=== PATIENT | male | born 1950 | race Caucasian/White ===

== ENCOUNTER 2017-03-17 10:11 | Day surgery (SDC) | payer MEDICARE, OTHER ==
[~2017-03-17 10:11] MED LIST: Bupivacaine 0.5%/EPINEPHrine 1:200,000 50 ML MDV ONE
[2017-03-17] MEDS ORDERED: Dextrose 5%-Lactated Ringers 1,000 ML IV SCH (10:45)
[2017-03-17] MEDS ORDERED: cefOXitin 2 GM in Sodium Chloride 0.9% 50 ML IV ONE (11:15)
[2017-03-17] MEDS ORDERED: Dexamethasone 4 MG/ML SDV ONE (11:54)
[2017-03-17] MEDS ORDERED: fentaNYL 250 MCG/5 ML SDV ONE (11:54)
[2017-03-17] MEDS ORDERED: Neostigmine Methylsulfate 1 MG/ML 5 ML Syringe ONE (11:54)
[2017-03-17] MEDS ORDERED: Ondansetron 4 MG/2 ML SDV ONE (11:54)
[2017-03-17] MEDS ORDERED: Propofol 200 MG/20 ML SDV ONE (11:54)
[2017-03-17] MEDS ORDERED: Rocuronium 50 MG/5 ML Vial ONE (11:54)
[2017-03-17] MEDS ORDERED: Succinylcholine/Normal Saline 200 MG/10 ML Syringe ONE (11:54)
[2017-03-17] MEDS ORDERED: Hydrogen Peroxide 3% Top Soln 240 ML Bottle ONE (12:32)
[2017-03-17 15:04] VITALS: BP 139/75
--- NOTE | 2017-03-19 08:12 | OR ---
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 OPERATIVE PROCEDURES: 1. Anal fistulotomy (16766). 2. Anoscopy with biopsies of internal opening of the fistula (01798). ANESTHESIA: General. CONSULTING MARINE ENGINEER: AMINA Mann student. INDICATION FOR PROCEDURE: This is a 66-year-old with longstanding perianal Crohn's disease, presenting with a persistent fistula that has now closed up enough that is not adequately draining putting the patient at significant risk for infectious complication. The fistulotomy will be reopened. This is a suprasphincteric fistula going around a large amount of the sphincter apparatus, so we will not proceed with division of any significant muscle at this time. I'll simply open the tract up that it remains well drained. The patient recently started specific treatment for the Crohn's disease and hopefully that will be helpful with regard to healing this at some point. Potential risks including bleeding, infection, and injury to sphincter muscle despite attempts to avoid so were reviewed, and the patient wishes to proceed. DETAILS OF PROCEDURE: The patient was taken to the operating room. After general endotracheal anesthesia was induced, he was placed in a lithotomy position and a perianal prep performed. With the anoscope then passed into the anal canal and lower rectum peroxide was injected to the external opening of the fistula. This confirmed continued patency of this fistula with the peroxide now coming in to the area of the anal canal more or less at the level of the dentate line. Interestingly, the fistula was somewhat posterior to the midline and left side and then had a long curve followed with a curved lacrimal duct probe up to incision somewhat anterior to the anal opening and rectum. The patient was in a supine positioned with his legs up. The position of the fistula of the external site was roughly around 4 o'clock and roughly 4 cm away from the external anal opening and then curved through this suprasphincteric plane and came out at around 2 o'clock at the level of the dentate line. At this point, the lower aspect of fistula was opened and some of the skin and subcutaneous tissue scar around it were excised taking care to avoid division of the external area musculature. This appeared to lie in a satisfactory actual drainage at this point. To assess the amount of inflammation present at the distal internal opening, anoscope was then placed back and several biopsies obtained from that area and sent for histologic evaluation. At that point, the wound was packed open after being anesthetized with 0.5% Marcaine. The patient was taken to the recovery room in satisfactory condition. Cesar Fregoso MD /[id number]
== END 2017-03-17 15:15 | disposition home or self-care (01) ==
LOC: JP.SDS 10:11
PROVIDERS: ATTEND Surgery
PROC: 0DJD8ZZ Inspection of Lower Intestinal Tract, Via Natural or Artificial Opening Endoscopic (ICD-10-PCS; principal; 2017-03-17)
PROC: 0DBQ0ZZ Excision of Anus, Open Approach (ICD-10-PCS; 2017-03-17)
DX: K60.3 Anal fistula (principal); K50.913 Crohn's disease, unspecified, with fistula
CPT/HCPCS: 36415; 46270; 46606; 80048; 85027; 88304; 93005; 93010; A9270; J0694; J1100; J2405; J2704; J3010; J7042; J7050

== ENCOUNTER 2017-06-05 08:31 | Day surgery (SDC) | payer MEDICARE, OTHER ==
[~2017-06-05 08:31] MED LIST changes: +Dexamethasone 4 MG/ML SDV ONE; +Glycopyrrolate 0.2 MG/ML 5 ML MDV ONE; +Neostigmine Methylsulfate 1 MG/ML 5 ML Syringe ONE; +Ondansetron 4 MG/2 ML SDV ONE; +Propofol 200 MG/20 ML SDV ONE; +Rocuronium 50 MG/5 ML Vial ONE; +Succinylcholine 200 MG/10 ML MDV ONE
[2017-06-05] MEDS ORDERED: Albuterol/Ipratropium 3.0-0.5 MG/3 ML Neb Soln NEB ONE (08:51)
[2017-06-05] MEDS ORDERED: Dextrose 5%-Lactated Ringers 1,000 ML IV SCH (09:00)
[2017-06-05] MEDS ORDERED: Meropenem 500 MG in Sodium Chloride 0.9% 50 ML IV ONE (09:15)
[2017-06-05] MEDS ORDERED: Hydrogen Peroxide 3% Top Soln 240 ML Bottle ONE (11:13)
[2017-06-05] MEDS ORDERED: Naloxone 0.4 MG/ML SDV ONE (11:39)
[2017-06-05] MEDS ORDERED: Ketorolac 60 MG/2 ML SDV IM ONE (12:00)
[2017-06-05] MEDS ORDERED: traMADol 50 MG Tab PO ONE (13:15)
[2017-06-05 13:36] VITALS: BP 129/59
--- NOTE | 2017-06-08 10:19 | OR ---
DATE OF PROCEDURE: 06/05/2017 PREOPERATIVE DIAGNOSIS: Persistent anal fistula. POSTOPERATIVE DIAGNOSIS: Anal fistulotomy (62572). ANESTHESIA: General. INDICATIONS FOR PROCEDURE: This is a 67-year-old with Crohn disease with persistent fistula- in-ano. This is now closed up at the fistulotomy site at the point where he is having increased drainage and appears to be nonhealed and at this point not adequately drained. Given this, a fistulotomy will need to be performed once again. He recently was started on biologic treatment for the Crohn disease and we are awaiting to see if this helps with the healing process. Plan is to proceed with a fistulotomy. We will try to avoid division of any sphincter muscle at this time more or less providing adequate drainage for the fistula to avoid ongoing infectious complications. Potential risks including bleeding, infection, problems with fecal incontinence, the likelihood of fistula persisting were all gone over and the patient wishes to proceed. DETAILS OF PROCEDURE: The patient was taken to the operating room where after general endotracheal anesthesia was induced, he was placed in a lithotomy position and a perianal prep performed. Initially, digital rectal exam confirmed an area of slight induration along the anterior aspect of the dentate line. This area is located just to the left of the anterior midline. The patient's external fistula site was in the left lateral area, slightly posterior to the midportion of the anus, and this area was injected with peroxide, which confirmed the patency of the fistula with the peroxide coming out of the opening at the level of the dentate line. The fistula probe was in place. This once again confirmed this is predominantly an extrasphincteric fistula becoming transsphincteric at the point where it passes into the dentate line. The lower aspect of the fistula was then opened up once again. Care was taken to avoid division of any muscle and at that point the area was injected with some 0.5% Marcaine with epinephrine and packed in place and the procedure concluded. The patient was taken to the recovery room in satisfactory condition. There were no evident complications. At this point, the plan will be to continue to follow the situation and see if by some chance the biologic therapy is helpful with regard to healing of this. I doubt that this is likely going to be efficacious. At some point, we will probably set the patient up to see the colorectal people at the [facility] and get some direction in terms of more definitive management of this problem. Cesar Fregoso MD /[id number]
== END 2017-06-05 13:45 | disposition home or self-care (01) ==
LOC: JP.SDS 08:31
PROVIDERS: ATTEND Surgery
DX: K50.913 Crohn's disease, unspecified, with fistula (principal)
CPT/HCPCS: 36415; 46280; 80053; 83735; 84100; 85027; A9270; J0330; J1100; J1885; J2185; J2310; J2405; J2704; J2710; J3010; J7042; J7050; J7620; 88304

== ENCOUNTER 2017-10-19 09:31 | Emergency (ER) | payer MEDICARE, OTHER ==
[2017-10-19] MEDS ORDERED: Ondansetron 4 MG/2 ML SDV IVPUSH ONE (10:48)
[2017-10-19] MEDS ORDERED: Meclizine 25 MG Tab PO ONE ×2 (10:49→12:26)
--- NOTE | 2017-10-19 10:52 | EDM.PDOC ---
ED HPI GENERAL MEDICAL PROBLEM - General Chief Complaint: General Stated Complaint: DIZZINESS,VOMITING Time Seen by Provider: 10/19/17 10:50 Source of Information: Reports: Patient History Limitations: Reports: No Limitations - History of Present Illness INITIAL COMMENTS - FREE TEXT/NARRATIVE: pt arrived with marked vertigo. He is vomiting. This started as he got up this am. He does not have a severe headache. He has a history of drinking but will soon have a 2 year anniversary of being free of etoh. Onset: Today, Sudden, Other (pt woke up with it. ) Duration: Hour(s):, Getting Worse, Other ( Pt was very nauseated. ) Location: Reports: Head Associated Symptoms: Reports: Nausea/Vomiting, Other ( vertigo. ) - Related Data Allergies Allergy/AdvReac Type Severity Reaction Status Date / Time No Known Allergies Allergy Verified 10/19/17 10:01 Home Meds: Home Meds Loperamide [Imodium] 2 mg PO Q4H PRN #30 cap 12/12/14 [Rx] Sertraline [Zoloft] 50 mg PO QAM 06/04/15 [History] metFORMIN [Glucophage] 1,000 mg PO BID 03/03/16 [History] Metoprolol Tartrate 25 mg PO BID 05/07/16 [History] Hydrochlorothiazide 25 mg PO DAILY 09/09/16 [History] atorvaSTATin [Lipitor] 10 mg PO DAILY 09/11/16 [History] azaTHIOprine [Imuran] 250 mg PO DAILY 03/13/17 [History] traMADol [Ultram] 1 - 2 tab PO Q6H PRN 03/13/17 [History] Albuterol [IJD: Albuterol HFA] 1 - 2 puff INH Q4HR PRN 06/03/17 [History] Colestipol [Colestipol HCl] 1 gm PO DAILY 06/03/17 [History] Entyvio IV ASDIRECTED 06/03/17 [History] Lisinopril [Prinivil] 10 mg PO DAILY 06/03/17 [History] Tamsulosin HCl [Flomax] 0.4 mg PO DAILY 06/03/17 [History] Past Medical History HEENT History: Reports: Hard of Hearing, Impaired Vision Other HEENT History: wears glasses Cardiovascular History: Reports: CAD, High Cholesterol, Hypertension, Stents Respiratory History: Reports: Sleep Apnea Other Respiratory History: c-pap Gastrointestinal History: Reports: Chronic Diarrhea, Gastritis, GERD, Hemorrhoids, Irritable Bowel Syndrome, Other (See Below) Other Gastrointestinal History: Crohns. fistula Genitourinary History: Reports: BPH, Prostate Disorder, Renal Calculus, UTI, Recurrent Musculoskeletal History: Reports: Arthritis, Fracture, Gout, Other (See Below) Other Musculoskeletal History: lumbar fractures Neurological History: Reports: Concussion Psychiatric History: Reports: Addiction, Anxiety, Depression Endocrine/Metabolic History: Reports: Diabetes, Type II Hematologic History: Reports: Anemia, B12 Deficiency, Folic Acid, Iron Deficiency Oncologic (Cancer) History: Reports: Other (See Below) Other Oncologic History: basal cell Dermatologic History: Reports: Psoriasis - Infectious Disease History Infectious Disease History: Reports: C-Difficile, Measles, Mumps - Past Surgical History Head Surgeries/Procedures: Reports: None HEENT Surgical History: Reports: None Cardiovascular Surgical History: Reports: Carotid Stents Respiratory Surgical History: Reports: None GI Surgical History: Reports: Appendectomy, Colon, Colonoscopy, EGD, Small Bowel , Other (See Below) Other GI Surgeries/Procedures: multiple colon surguries Male Surgical History: Reports: Kidney Stone Extraction Endocrine Surgical History: Reports: None Neurological Surgical History: Reports: Other (See Below) Musculoskeletal Surgical History: Reports: None Oncologic Surgical History: Reports: None Dermatological Surgical History: Reports: Skin Biopsy Social & Family History - Family History Family Medical History: Unobtainable HEENT: Reports: Cataract Cardiac: Reports: Bypass, [place], Stent Respiratory: Reports: COPD Endocrine/Metabolic: Reports: Diabetes, type II, Hypothyroidism Oncologic: Reports: Lung - Tobacco Use Smoking Status *Q: Never Smoker Second Hand Smoke Exposure: No - Caffeine Use Caffeine Use: Reports: Soda - Alcohol Use Days Per Week of Alcohol Use: 5 Number of Drinks Per Day: 10 Total Drinks Per Week: 50 - Recreational Drug Use Recreational Drug Use: No ED ROS GENERAL - Review of Systems Review Of Systems: See Below Constitutional: Reports: No Symptoms HEENT: Reports: No Symptoms Respiratory: Reports: No Symptoms Cardiovascular: Reports: No Symptoms, Other (pt has no chest pain. ) Endocrine: Reports: Other ( glucose is greater than 200. ) GI/Abdominal: Reports: Nausea, Vomiting, Other ( No pain. ) : Reports: No Symptoms Musculoskeletal: Reports: No Symptoms Skin: Reports: No Symptoms Neurological: Reports: Dizziness, Other (pt has vertigo. ) Psychiatric: Reports: Anxiety ED EXAM, GENERAL - Physical Exam Exam: See Below Free Text/Narrative:: pt arrived with vertigo. This started this am and became severe. He has vomited multiple times. Exam Limited By: No Limitations General Appearance: Alert, Mild Distress, Other (pupils are equal and reactive. He does not have nystagmus. ) Ears: Normal TMs Nose: Normal Inspection Throat/Mouth: Normal Inspection Head: Atraumatic Neck: Other (no carotid bruits) Respiratory/Chest: No Respiratory Distress Cardiovascular: Regular Rate, Rhythm GI/Abdominal: Soft, Non-Tender (Male) Exam: Deferred Rectal (Males) Exam: Deferred Back Exam: Normal Inspection Extremities: Normal Inspection Neurological: Alert, Oriented, Normal Cognition Psychiatric: Normal Affect Course - Vital Signs Last Recorded V/S: Last Vital Signs Temp 36.6 C 10/19/17 13:21 Pulse 73 10/19/17 13:21 Resp 16 10/19/17 13:21 BP 173/81 H 10/19/17 13:21 Pulse Ox 97 10/19/17 13:21 - Orders/Labs/Meds Orders: Active Orders 24 hr Category Date Time Status Sodium Chloride 0.9% [Normal Saline] 1,000 ml Med 10/19/17 11:00 Active IV ASDIRECTED Medication Orders Sodium Chloride (Normal Saline) 1,000 mls @ 999 mls/hr IV ASDIRECTED NAA Last Admin: 10/19/17 11:37 Dose: 999 mls/hr Labs: Laboratory Tests 10/19/17 10/19/17 10/19/17 Range/Units 10:58 10:58 11:19 WBC 4.8 (4.5-11.0) K/uL RBC 4.63 (4.30-5.90) M/uL Hgb 14.6 (12.0-15.0) g/dL Hct 41.0 (40.0-54.0) % MCV 89 (80-98) fL MCH 32 H (27-31) pg MCHC 36 (32-36) % Plt Count 167 (150-400) K/uL Neut % (Auto) 74 H (36-66) % Lymph % (Auto) 17 L (24-44) % [place] % (Auto) 7 H (2-6) % Eos % (Auto) 1 L (2-4) % Baso % (Auto) 0 (0-1) % Sodium 140 (140-148) mmol/L Potassium 4.1 (3.6-5.2) mmol/L Chloride 101 (100-108) mmol/L Carbon Dioxide 28 (21-32) mmol/L Anion Gap 11.2 (5.0-14.0) mmol/L BUN 15 (7-18) mg/dL Creatinine 1.0 (0.8-1.3) mg/dL Est Cr Clr Drug Dosing 83.33 mL/min Estimated GFR (MDRD) > 60 (>60) Glucose 226 H (74-106) mg/dL Calcium 9.0 (8.5-10.1) mg/dL Total Bilirubin 1.5 H (0.2-1.0) mg/dL AST 35 (15-37) U/L ALT 40 (12-78) U/L Alkaline Phosphatase 180 H (46-116) U/L Total Protein 6.2 L (6.4-8.2) g/dL Albumin 3.5 (3.4-5.0) g/dL Globulin 2.7 (2.3-3.5) g/dL Albumin/Globulin Ratio 1.3 (1.2-2.2) Urine Color Yellow Urine Appearance Slightly cloudy Urine pH 7.0 (4.5-8.0) Ur Specific Barre 1.015 (1.008-1.030) Urine Protein 500 H (NEGATIVE) mg/dL Urine Glucose (UA) 100 H (NEGATIVE) mg/dL Urine Ketones Negative (NEGATIVE) mg/dL Urine Occult Blood Moderate (NEGATIVE) Urine Nitrite Negative (NEGAITVE) Urine Bilirubin Negative (NEGATIVE) Urine Urobilinogen 1 (NORMAL) mg/dL Ur Leukocyte Esterase Small (NEGATIVE) Urine RBC 0-5 (0-5) Urine WBC 0-5 (0-5) Ur Epithelial Cells Not seen Amorphous Sediment Rare Urine Bacteria Rare Urine Mucus Rare Meds: Medications Generic Name Dose Route Start Last Admin Trade Name Freq PRN Reason Stop Dose Admin Sodium Chloride 1,000 mls @ 999 mls/hr 10/19/17 11:00 10/19/17 11:37 Normal Saline IV 999 mls/hr ASDIRECTED NAA Administration Discontinued Medications Generic Name Dose Route Start Last Admin Trade Name Marquise PRN Reason Stop Dose Admin Meclizine HCl 25 mg 10/19/17 10:49 10/19/17 11:37 Antivert PO 10/19/17 10:50 25 mg ONETIME ONE Administration Meclizine HCl 12.5 mg 10/19/17 12:26 Antivert PO 10/19/17 12:27 ONETIME ONE Ondansetron HCl 4 mg 10/19/17 10:48 10/19/17 11:38 Zofran IVPUSH 10/19/17 10:49 4 mg ONETIME ONE Administration - Re-Assessments/Exams Free Text/Narrative Re-Assessment/Exam: 10/19/17 13:31 Since this was his first episode he had a cat scan of the head that was normal. He was given a liter of fluid. He was given antivert and zoforan and he is feeling better. He is drinking fluids and doing well with that. Departure - Departure Time of Disposition: 13:33 Disposition: Home, Self-Care 01 Condition: Fair Clinical Impression: Inner ear dysfunction, Vomiting - Discharge Information Referrals: Jorge Ridley PA-C [Primary Care Provider] - Forms: ED Department Discharge Care Plan Goals: low activity rest today, antivert 25 q8h as needed for dizziness0- take regularly for the next 2 days, zoforan 4 mg sub ling q8h as needed for nausea and vomiting, Rtc if increased problems. - My Orders Last 24 Hours: My Active Orders 10/19/17 11:00 Sodium Chloride 0.9% [Normal Saline] 1,000 ml IV ASDIRECTED - Assessment/Plan Last 24 Hours: My Active Orders 10/19/17 11:00 Sodium Chloride 0.9% [Normal Saline] 1,000 ml IV ASDIRECTED
[2017-10-19] MEDS ORDERED: Sodium Chloride 0.9% 1,000 ML IV SCH (11:00)
--- NOTE | 2017-10-19 13:24 | CT ---
Head wo Cont INDICATION: severe vertigo-- first time Total DLP 859. COMPARISON: CT 01/28/2015. FINDINGS: No acute intracranial hemorrhage, mass, or edema. Minimal generalized cerebral and cerebell ar volume loss. Chronic lacunar infarct versus prominent perivascular space right basal ganglia. Saira eda unremarkable. IMPRESSION: No acute intracranial abnormality.
[2017-10-19 13:28] VITALS: BP 173/81
== END 2017-10-19 13:58 | disposition home or self-care (01) ==
LOC: JP.ED 09:31
DX: H83.2X9 Labyrinthine dysfunction, unspecified ear (principal); E11.9 Type 2 diabetes mellitus without complications; I10 Essential (primary) hypertension; E78.00 Pure hypercholesterolemia, unspecified; K21.9 Gastro-esophageal reflux disease without esophagitis; Z79.899 Other long term (current) drug therapy; Z79.84 Long term (current) use of oral hypoglycemic drugs
CPT/HCPCS: 36415; 70450; 80053; 81001; 85025; 96361; 96374; 99284; A9270; J2405; J7040; 99283; J7030

== ENCOUNTER 2018-10-11 05:25 | Day surgery (SDC) | payer MEDICARE, OTHER ==
[2018-10-11] MEDS ORDERED: Dextrose 5%-Lactated Ringers 1,000 ML IV SCH (06:00)
[2018-10-11] MEDS ORDERED: Propofol 200 MG/20 ML SDV ONE ×2 (07:09→08:12)
[2018-10-11] MEDS ORDERED: fentaNYL 100 MCG/2 ML SDV ONE (07:09)
[2018-10-11] MEDS ORDERED: Hydrogen Peroxide 3% Top Soln 240 ML Bottle ONE (07:20)
[2018-10-11 09:32] VITALS: BP 153/82
--- NOTE | 2018-10-19 12:21 | OR ---
DATE OF PROCEDURE: 10/11/2018 PREOPERATIVE DIAGNOSIS: History of Crohn disease with [id number]-la-dxj. POSTOPERATIVE DIAGNOSES: 1. Persistent khisygi-sd-hbb. 2. Cecum showing focal inflammation and probable inflammatory polyp. 3. No gross inflammation involving remainder of colon and rectum. OPERATIVE PROCEDURES: 1. Anoscopy for evaluation of zmfysxp-de-sib (19509). 2. Flexible colonoscopy with;. a. Polypectomy of polypoid lesion at the cecum by snare technique (82181). b. Random biopsies of cecum and ascending colon. c. Separate random biopsies of distal sigmoid colon and rectum (63561). ANESTHESIA: IV sedation. INDICATION FOR PROCEDURE: This is a 68-year-old, being treated for Crohn disease. He has known [id number], which clinically has become quite less problematic on this current treatment, which includes Entyvio and imuran, and also more recently a better control of his diabetic status. The plan is to proceed with an initial anoscopy with injection of the site of possible persistent fistula with peroxide to see whether or not, in fact, it is still patent, and then proceed with a general colonoscopy to evaluate to what extent there is any ongoing mucosal inflammation in the colon and rectum. Potential risks of the procedure including bleeding and perforation were discussed, and the patient wishes to proceed. DETAILS OF PROCEDURE: The patient was taken to the operating room and placed in a left lateral decubitus position. IV sedation was administered, after which the initial digital rectal exam was performed and was unremarkable. There was no obvious inflammation in the anal canal or lower rectum. As one passed the scope into the rectum, we could not directly visualize a fistula opening. At that point, the scope was eventually passed to the level of the cecum. In the cecum, there was a focal area of some edema and redness of the mucosa as well as a polypoid lesion measuring about 8 mm. The overall picture was suggestive of this perhaps being an inflammatory polyp. The polyp was encircled at its base and divided off with cautery snare and it did fragment somewhat and the fragments were retrieved and sent for histologic evaluation. Additional more random biopsies of the cecum and ascending colon were then obtained as well. Following this, the scope was withdrawn with there not being any additional areas of gross mucosal inflammation identified through the remainder of the exam. Some random biopsies of the distal sigmoid colon and rectum were also obtained for histologic evaluation and sent as a separate specimen. At this point, with the colonoscope having been removed, anoscope was placed and peroxide was then injected through the external location of the [id number]. This did confirm some peroxide getting into the area along the dentate line consistent with some persistence of the fistula, although the amount of drainage the patient has been having and gross inflammation along the fistula has markedly decreased from the previous level. The procedure was then concluded. The patient was taken to the recovery room in a satisfactory condition. We will continue with the present medical management. The patient will be following up with Dr. Pimentel of the [facility] in [place]. We will see him back in 5 to 6 weeks for a recheck. Cesar Fregoso MD Job #: [id number]
== END 2018-10-11 10:30 | disposition home or self-care (01) ==
LOC: JP.SDS 05:25
PROVIDERS: ATTEND Surgery
DX: K60.3 Anal fistula (principal); K51.40 Inflammatory polyps of colon without complications; I10 Essential (primary) hypertension; E11.9 Type 2 diabetes mellitus without complications; I25.10 Atherosclerotic heart disease of native coronary artery without angina pectoris
CPT/HCPCS: 45380; 45385; 88305; 88342; A9270; J2704; J3010; J7042

== ENCOUNTER 2020-02-29 10:05 | Day surgery (SDC) | payer MEDICARE, OTHER ==
[2020-02-29] MEDS ORDERED: Lactated Ringers 1,000 ML IV SCH (10:45)
[2020-02-29] MEDS ORDERED: Nozin Nasal Sanitizer NASBOTH ONE (11:00)
[2020-02-29] MEDS ORDERED: Morphine 2 MG/ML SYRINGE IVPUSH ONE (11:45)
[2020-02-29] MEDS ORDERED: Glycopyrrolate 0.2 MG/ML 5 ML MDV ONE (12:21)
[2020-02-29] MEDS ORDERED: fentaNYL 250 MCG/5 ML SDV ONE (12:21)
[2020-02-29] MEDS ORDERED: Succinylcholine 200 MG/10 ML MDV ONE (12:21)
[2020-02-29] MEDS ORDERED: Dexamethasone 4 MG/ML SDV ONE (12:21)
[2020-02-29] MEDS ORDERED: Ondansetron 4 MG/2 ML SDV ONE (12:21)
[2020-02-29] MEDS ORDERED: Propofol 200 MG/20 ML SDV ONE (12:21)
[2020-02-29] MEDS ORDERED: Neostigmine Methylsulfate 1 MG/ML 5 ML Syringe ONE (12:21)
[2020-02-29] MEDS ORDERED: Rocuronium 50 MG/5 ML Vial ONE (12:21)
[2020-02-29] MEDS ORDERED: Bupivacaine 0.5% 50 ML MDV ONE (13:08)
[2020-02-29] MEDS ORDERED: ceFAZolin 1 GM in Premix Bag 1 BAG IV ONE (13:30)
[2020-02-29] MEDS ORDERED: Ondansetron 4 MG/2 ML SDV IVPUSH ONE (15:41)
[2020-02-29 16:56] VITALS: BP 164/89; PULSE 73
[2020-02-29] MEDS ORDERED: Acetaminophen/HYDROcodone 325-5 MG Tab PO ONE (17:10)
--- NOTE | 2020-03-07 22:28 | OR ---
DATE OF PROCEDURE: 02/29/2020 SURGEON: Og Alonzo MD PREOPERATIVE DIAGNOSES: 1. Chondromalacia medial femoral condyle, left knee. 2. Medial meniscus tear, left knee. POSTOPERATIVE DIAGNOSES: 1. Large chondral defect, chondromalacia grade 4, medial femoral condyle. 2. Small degenerative midbody medial meniscus tear. PROCEDURES: 1. Arthroscopy, left knee with chondroplasty, medial femoral condyle and microfracture. 2. Debridement of medial meniscus. ANESTHESIA: General. INDICATIONS: Yevgeniy is a 69-year-old gentleman with a fairly rapid onset of pain in the medial aspect of his left knee. He has failed conservative treatment, having significant difficulty with weightbearing, persistent pain and catching. Examination and MRI are consistent with irregularity of the medial meniscus, degenerative tear and chondromalacia of the medial femoral condyle. The remainder of the knee is fairly well preserved. X-ray shows no significant spuh-bs-bxjp collapse. He is therefore taken to the operating room for debridement of the meniscus and chondroplasty, medial femoral condyle. Risks, benefits and potential complications of procedure were discussed. DESCRIPTION OF PROCEDURE: After adequate anesthesia was obtained, the patient placed supine with a tourniquet about the left upper thigh. Left leg was prepped and draped in a sterile fashion. Leg was exsanguinated and tourniquet inflated to 300 mg of pressure. Standard inferior, medial and lateral portals were established. The scope was introduced and the patellofemoral joint was inspected. This revealed intact articular cartilage on the patella and trochlear groove with intact cartilage as well. Moving into the medial compartment, large cartilage defect was present which unfortunately encompassed nearly the entire weightbearing surface. This did not have the typical degenerative arthritic appearance with eburnated bone and relatively smooth articular cartilage loss and transition to the bone, but had a large defect with fairly well-defined articular cartilage margins. The margins did however have some loose articular flaps. A shaver was introduced and the margins were debrided removing all the loose articular pieces. This left nearly the entire weightbearing surface devoid of articular cartilage other than just a small bridge between a more anterior and a posterior segment. Once all the loose fragments were removed and the defect defined, the bed of the defect was debrided with a shaver and microfracture awls were used to perform a microfracture throughout the base of the lesion. A small frayed free edge degenerative tear was noted at the junction of the midbody and posterior horn of the meniscus. This was debrided as well removing a minimal amount of meniscus. All loose fragments were removed. Intercondylar notch revealed intact ACL and PCL. Lateral compartment revealed intact meniscus and articular cartilage. A little more anterior on the medial femoral condyle moving up the portion of the medial facet of the trochlea, there was an area of more typical degenerative articular cartilage loss with smooth edges and central defect. No chondroplasty or debridement was done of this. The knee was then drained. Port sites were closed in a standard fashion, infiltrated with Marcaine and a sterile dressing was applied. The patient tolerated the procedure very well. There were no complications. He was taken from the operating room in stable condition. Og Alonzo MD /[id number]
== END 2020-02-29 18:37 | disposition home or self-care (01) ==
LOC: JP.SDS 10:05
PROVIDERS: ATTEND Specialist
DX: M94.262 Chondromalacia, left knee (principal); M23.222 Derangement of posterior horn of medial meniscus due to old tear or injury, left knee; I10 Essential (primary) hypertension; E11.9 Type 2 diabetes mellitus without complications; G47.33 Obstructive sleep apnea (adult) (pediatric); E66.9 Obesity, unspecified; E78.00 Pure hypercholesterolemia, unspecified; I25.10 Atherosclerotic heart disease of native coronary artery without angina pectoris; Z68.34 Body mass index [BMI] 34.0-34.9, adult; Z88.0 Allergy status to penicillin; Z79.4 Long term (current) use of insulin
CPT/HCPCS: 29877; 82962; A9270; J0330; J0690; J1100; J2270; J2405; J2704; J2710; J3010; J3490; J7120; 29879; 29881

== ENCOUNTER 2020-04-11 05:49 | Day surgery (SDC) | payer MEDICARE, OTHER ==
[2020-04-11] MEDS ORDERED: Clindamycin Phosphate 900 MG in Sodium Chloride 0.9% 100 ML IV ONE (06:30)
[2020-04-11] MEDS: Nozin Nasal Sanitizer NASBOTH SCH ×3 (06:54→21:41)
[2020-04-11] MEDS ORDERED: Bupivacaine 0.5% 30 ML SDV ONE (06:58)
[2020-04-11] MEDS ORDERED: Propofol 200 MG/20 ML SDV ONE ×4 (07:24→08:49)
[2020-04-11] MEDS ORDERED: fentaNYL 100 MCG/2 ML SDV ONE (07:24)
[2020-04-11] MEDS ORDERED: Midazolam 1 MG/ML 2 ML SDV ONE (07:25)
[2020-04-11] MEDS: Lactated Ringers 1,000 ML IV SCH ×2 (07:30→09:55)
[2020-04-11] MEDS: Povidone-Iodine 10% Soln 118.25 ML Bottle ONE ×2 (08:30→09:00)
[2020-04-11] MEDS ORDERED: Lactated Ringers 1,000 ML ONE (09:02)
[2020-04-11] MEDS ORDERED: Ondansetron 4 MG/2 ML SDV IVPUSH PRN (09:19)
[2020-04-11] MEDS ORDERED: Acetaminophen/HYDROcodone 325-5 MG Tab PO PRN (09:19)
[2020-04-11] MEDS ORDERED: Morphine 2 MG/ML SYRINGE IVPUSH PRN (09:19)
[2020-04-11] MEDS ORDERED: Magnesium Hydroxide 400 MG/5 ML Susp 30 ML Cup PO PRN (09:19)
[2020-04-11] MEDS ORDERED: Loperamide 2 MG Cap PO PRN (09:27)
[2020-04-11] MEDS ORDERED: Atropine/Diphenoxylate 0.025-2.5 MG Tab PO PRN ×2 (09:27→17:39)
[2020-04-11] MEDS ORDERED: VEDOLIZUMAB 300 MG IV SCH (09:30)
[2020-04-11] MEDS ORDERED: ceFAZolin 1 GM in Sodium Chloride 0.9% 50 ML IV SCH ×2 (09:30→10:23)
[2020-04-11] MEDS ORDERED: Lactated Ringers 1,000 ML IV SCH (09:30)
[2020-04-11] MEDS ORDERED: Ondansetron 4 MG/2 ML SDV IVPUSH ONE (09:32)
[2020-04-11] MEDS ORDERED: Loratadine 10 MG Tab PO PRN (09:36)
--- NOTE | 2020-04-11 10:05 | CR ---
Knee 1V or 2V Lt CLINICAL HISTORY: Postop arthroplasty FINDINGS: Patient is status post recent the medial knee hemiarthroplasty. Components appear well seated. Impression: Status post medial hemiarthroplasty
[2020-04-11] MEDS: Acetaminophen/oxyCODONE 325-5 MG Tab PO PRN ×2 (11:19→11:33)
[2020-04-11] MEDS ORDERED: Insulin Lispro 100 Unit/ML 3 ML KwikPen SUBCUT SCH (12:00)
[2020-04-11] MEDS: Potassium Chloride 20 MEQ Tab.ER PO SCH (12:30)
[2020-04-11] MEDS: Potassium Chloride 10 MEQ Cap.ER PO SCH (12:30)
--- NOTE | 2020-04-11 14:35 | PCM.CONS ---
H&P History of Present Illness - General Date of Service: 04/11/20 Admit Problem/Dx: Admission Diagnosis/Problem Admission Diagnosis/Problem Osteoarthritis Source of Information: Patient, Provider History Limitations: Reports: No Limitations - History of Present Illness Initial Comments - Free Text/Narative: Yevgeniy was admitted today after having a left knee arthroplasty. I was asked to see him by Dr Og Alonzo regarding medical management of diabetes, hypertension. He is currently experiencing a moderate to moderately severe pain in the left knee after initially having good pain control. Pain is sharp and comes and goes in waves. He has had a variety of pain medications without much improvement. Pain has been getting worse over the past couple of hours. He reports that his diabetes is usually pretty well controlled. He is currently taking glipizide twice daily, long-acting Lantus in the evening and he uses 1 unit of insulin per carb with his meals as well as a low-dose sliding scale at home. Blood pressure has been well controlled at recent outpatient visits. Crohn's disease has been fairly well controlled and he does receive monthly infusions. 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 This is chronic and stable. Left Knee Pain Score (Numeric/FACES): 2 - Related Data Allergies/Adverse Reactions: Allergies Allergy/AdvReac Type Severity Reaction Status Date / Time amoxicillin Allergy Nausea Verified 02/29/20 10:24 Penicillins Allergy Indigestion Verified 10/11/18 06:09 Home Medications: Home Meds Loperamide [Imodium] 2 mg PO Q4H PRN #30 cap 12/12/14 [Rx] Sertraline [Zoloft] 50 mg PO QAM 06/04/15 [History] Metoprolol Tartrate 75 mg PO BID 05/07/16 [History] Hydrochlorothiazide 25 mg PO DAILY 09/09/16 [History] atorvaSTATin [Lipitor] 40 mg PO DAILY 09/11/16 [History] Insulin Glarg,Human.Rec.Analog [Lantus Solostar] 32 units SQ BEDTIME 10/11/18 [History] Alfuzosin [Uroxatral] 10 mg PO DAILY 11/02/18 [History] Fish Oil/[place]-3 Fatty Acids [Fish Oil 1,000 MG] 1 each PO DAILY 11/02/18 [History] Loratadine [Claritin] 10 mg PO DAILY PRN 11/02/18 [History] Multivitamin [Multiple Vitamins] 1 each PO DAILY 11/02/18 [History] Pantoprazole Sodium [Protonix] 40 mg PO DAILY 11/02/18 [History] Potassium Chloride 20 meq PO DAILY 11/02/18 [History] Potassium Citrate 10 meq PO DAILY 11/02/18 [History] amLODIPine Besylate [Norvasc] 10 mg PO DAILY 11/02/18 [History] glipiZIDE [Glucotrol] 10 mg PO BID 11/02/18 [History] Insulin Aspart [NovoLOG] 25 units SQ TID 11/09/18 [History] Atropine/Diphenoxylate [Diphenoxylate-Atropine] 1 tab PO BID PRN 02/29/20 [History] Vedolizumab [Entyvio] 300 mg IV Q60D 02/29/20 [History] ondansetron HCL [Zofran] 4 mg PO Q6HR PRN #15 tablet 03/06/20 [Rx] Hydrocodone/Acetaminophen [[place] 5-325 Tablet] 1 - 2 each PO Q6HR PRN #50 tablet 03/08/20 [Rx] oxyCODONE HCl/Acetaminophen [Percocet 5-325 mg Tablet] 1 - 2 each PO Q6HR PRN #50 tablet 04/05/20 [Rx] Past Medical History HEENT History: Reports: Cataract, Hard of Hearing, Impaired Vision Other HEENT History: wears glasses Cardiovascular History: Reports: CAD, High Cholesterol, Hypertension, Stents Respiratory History: Reports: Sleep Apnea Other Respiratory History: c-pap Gastrointestinal History: Reports: Other (See Below) Other Gastrointestinal History: Crohns. lisseth anal fistula Genitourinary History: Reports: BPH, Prostate Disorder, Renal Calculus, UTI, Recurrent Musculoskeletal History: Reports: Arthritis, Fracture, Gout, Other (See Below) Other Musculoskeletal History: lumbar fractures. right achilles pain. R heel pain. left knee pain Neurological History: Reports: Concussion Psychiatric History: Reports: Addiction, Anxiety Endocrine/Metabolic History: Reports: Diabetes, Type II, Obesity/BMI 30+ Hematologic History: Reports: Anemia, B12 Deficiency, Folic Acid, Iron Deficiency Immunologic History: Reports: None Oncologic (Cancer) History: Reports: Basal Cell Carcinoma, Other (See Below) Other Oncologic History: basal cell Dermatologic History: Reports: Psoriasis - Infectious Disease History Infectious Disease History: Reports: Chicken Pox, Measles, Mumps - Past Surgical History Head Surgeries/Procedures: Reports: None HEENT Surgical History: Reports: Tonsillectomy Cardiovascular Surgical History: Reports: Carotid Stents Respiratory Surgical History: Reports: None Male Surgical History: Reports: Kidney Stone Extraction Endocrine Surgical History: Reports: None Neurological Surgical History: Reports: None Musculoskeletal Surgical History: Reports: None Other Musculoskeletal Surgeries/Procedures:: left knee scope 03/05/20 Dermatological Surgical History: Reports: Skin Biopsy Social & Family History - Family History Family Medical History: Noncontributory HEENT: Reports: Cataract Cardiac: Reports: Bypass, MA, Stent Respiratory: Reports: COPD Endocrine/Metabolic: Reports: Diabetes, type II, Hypothyroidism Oncologic: Reports: Lung - Tobacco Use Smoking Status *Q: Never Smoker - Caffeine Use Caffeine Use: Reports: Soda - Alcohol Use Days Per Week of Alcohol Use: 1 Number of Drinks Per Day: 1 Total Drinks Per Week: 1 Date of Last Drink: 04/09/20 - Recreational Drug Use Recreational Drug Use: No H&P Review of Systems - Review of Systems: Review Of Systems: See Below Free Text/Narrative: A complete 12 point review of systems was obtained. Pertinent positives and negatives are noted in the history of present illness. All other systems were reviewed and were negative except as noted. Exam - Exam Exam: See Below - Vital Signs Vital Signs: Last Vital Signs Temp 36.4 C 04/11/20 13:34 Pulse 60 04/11/20 13:34 Resp 16 04/11/20 13:34 BP 144/82 H 04/11/20 13:34 Pulse Ox 99 04/11/20 13:34 Weight: 112.576 kg - Exam Quality Assessment: No: Supplemental Oxygen General: Alert, Oriented, Cooperative, Mild Distress HEENT: Mucosa Moist & [place]. No: Scleral Icterus Neck: Trachea Midline. No: Lymphadenopathy Lungs: Normal Respiratory Effort. No: Wheezing Cardiovascular: Regular Rate, Regular Rhythm GI/Abdominal Exam: Soft, No Distention Extremities: No Pedal Edema, Other (Left knee wrapped in Viktor wrap) Skin: Warm, Dry Neuro Extensive - Mental Status: Alert, Oriented x3, Nl Response to Commands Neuro Extensive - Motor, Sensory, Reflexes: No: Dysarthria, Abnormal Motor Psychiatric: Alert, Normal Affect - Patient Data Lab Results Last 24 hrs: Laboratory Results - last 24 hr 04/11/20 04/11/20 04/11/20 Range/Units 06:27 06:27 11:30 WBC 9.2 (4.5-11.0) K/uL RBC 4.69 (4.30-5.90) M/uL Hgb 14.4 (12.0-15.0) g/dL Hct 39.9 L (40.0-54.0) % MCV 85 (80-98) fL MCH 31 (27-31) pg MCHC 36 (32-36) % Plt Count 195 (150-400) K/uL Sodium 141 (140-148) mmol/L Potassium 3.0 L (3.6-5.2) mmol/L Chloride 102 (100-108) mmol/L Carbon Dioxide 28 (21-32) mmol/L Anion Gap 14.0 (5.0-14.0) mmol/L BUN 14 (7-18) mg/dL Creatinine 1.4 H (0.8-1.3) mg/dL Est Cr Clr Drug Dosing 57.00 mL/min Estimated GFR (MDRD) 50 L (>60) Glucose 152 H (74-106) mg/dL POC Glucose 265 H (74-106) MG/DL Calcium 8.5 (8.5-10.1) mg/dL Total Bilirubin 1.2 H (0.2-1.0) mg/dL AST 16 (15-37) U/L ALT 22 (12-78) U/L Alkaline Phosphatase 95 (46-116) U/L Total Protein 7.0 (6.4-8.2) g/dL Albumin 3.9 (3.4-5.0) g/dL Globulin 3.1 (2.3-3.5) g/dL Albumin/Globulin Ratio 1.3 (1.2-2.2) Result Diagrams: 04/11/20 06:27 04/11/20 06:27 Sepsis Event Note - Focused Exam Vital Signs: Vital Signs Temp Pulse Resp BP BP Pulse Ox 04/11/20 13:34 36.4 C 60 16 144/82 H 99 04/11/20 13:00 66 16 148/58 H 99 04/11/20 12:38 36.2 C 66 16 148/58 H 99 04/11/20 12:24 36.2 C 60 16 156/69 H 99 04/11/20 11:52 36.2 C 62 16 134/61 99 04/11/20 11:37 36.2 C 64 16 136/62 98 04/11/20 11:30 36.0 C L 64 16 129/56 L 100 04/11/20 11:15 61 16 100 04/11/20 11:00 60 16 115/54 L 100 04/11/20 10:45 56 L 16 123/56 L 100 04/11/20 10:36 35.8 C L 58 L 16 141/70 H 100 04/11/20 10:05 57 L 16 148/75 H 100 04/11/20 10:00 57 L 16 147/78 H 100 04/11/20 09:55 56 L 16 149/78 H 04/11/20 09:50 36.5 C 56 L 16 139/73 100 04/11/20 09:45 57 L 16 140/73 98 04/11/20 09:40 57 L 16 146/79 H 98 04/11/20 09:35 36.5 C 60 16 138/77 99 04/11/20 09:30 58 L 12 137/72 98 04/11/20 09:25 61 12 128/69 96 04/11/20 09:20 36.0 C L 59 L 12 124/65 97 04/11/20 06:51 97 04/11/20 06:50 36.6 C 64 16 133/82 Date Exam was Performed: 04/11/20 Time Exam was Performed: 14:29 Consult PN Assessment/Plan POD#: 0 Procedures: Procedures ANOSCOPY AND BIOPSY (03/17/17) ASSAY OF AMMONIA (12/16/14) ASSAY OF AMYLASE (03/23/16) ASSAY OF CK (CPK) (03/03/16) ASSAY OF LACTIC ACID (03/23/16) ASSAY OF LIPASE (03/23/16) ASSAY OF MAGNESIUM (06/05/17) ASSAY OF PHOSPHORUS (06/05/17) ASSAY OF SERUM POTASSIUM (03/23/16) ASSAY OF TROPONIN QUANT (03/03/16) ASSAY THYROID STIM HORMONE (01/28/15) BLOOD CULTURE FOR BACTERIA (03/23/16) BLOOD PH (12/16/14) CARDIOVASCULAR STRESS TEST (11/11/18) CHEST X-RAY 2VW FRONTAL&LATL (12/16/14) COLONOSCOPY AND BIOPSY (10/11/18) COLONOSCOPY W/LESION REMOVAL (10/11/18) COMPLETE CBC AUTOMATED (06/05/17) COMPLETE CBC W/AUTO DIFF WBC (10/19/17) COMPREHEN METABOLIC PANEL (10/19/17) CREATINE MB FRACTION (03/03/16) CT HEAD/BRAIN W/O DYE (10/19/17) DRAIN/INJ JOINT/BURSA W/O US (02/02/20) ELECTROCARDIOGRAM REPORT (03/17/17) ELECTROCARDIOGRAM TRACING (03/17/17) EMERGENCY DEPT VISIT (10/19/17) EMERGENCY DEPT VISIT (03/23/16) EMERGENCY DEPT VISIT (06/04/15) EMERGENCY DEPT VISIT (06/04/15) EMERGENCY DEPT VISIT (01/28/15) EMERGENCY DEPT VISIT (01/28/15) EMERGENCY DEPT VISIT (12/16/14) EMERGENCY DEPT VISIT (12/16/14) EMERGENCY DEPT VISIT (12/02/14) EMERGENCY DEPT VISIT (12/02/14) EMERGENCY DEPT VISIT (09/24/14) EMERGENCY DEPT VISIT (09/24/14) EXTRACRANIAL BILAT STUDY (01/28/15) GLUCOSE BLOOD TEST (02/29/20) GLYCOSYLATED HEMOGLOBIN TEST (01/28/15) HEPATOBIL SYST IMAGE W/DRUG (03/03/16) HT MUSCLE IMAGE SPECT MULT (11/11/18) HYDRATE IV INFUSION ADD-ON (10/19/17) IMMUNOHISTO ANTB 1ST STAIN (10/11/18) KNEE ARTHROSCOPY/SURGERY (02/29/20) MANUAL THERAPY 1/> REGIONS (09/22/19) METABOLIC PANEL TOTAL CA (03/17/17) MICROBE SUSCEPTIBLE MARIELENA (03/23/16) MRI ABDOMEN W/O DYE (03/03/16) MRI JNT OF LWR EXTRE W/O DYE (02/22/20) OFFICE/OUTPATIENT VISIT EST (02/02/20) OFFICE/OUTPATIENT VISIT EST (10/11/19) OFFICE/OUTPATIENT VISIT NEW (05/24/19) PROTHROMBIN TIME (03/23/16) PT EVAL LOW COMPLEX 20 MIN (02/07/20) PT EVAL MOD COMPLEX 30 MIN (05/24/19) PT EVALUATION (03/23/16) PT RE-EVAL EST PLAN CARE (05/24/19) RBC SED RATE NONAUTOMATED (12/16/14) REAGENT STRIP/BLOOD GLUCOSE (01/28/15) REMOVE ANAL FIST COMPLEX (06/05/17) REMOVE ANAL FIST SUBQ (03/17/17) ROUTINE VENIPUNCTURE (10/19/17) SELF CARE MNGMENT TRAINING (07/26/19) THER/DIAG CONCURRENT INF (01/28/15) THER/PROPH/DIAG INJ IV PUSH (10/19/17) THER/PROPH/DIAG INJ SC/IM (12/16/14) THER/PROPH/DIAG IV INF INIT (01/28/15) THERAPEUTIC ACTIVITIES (11/23/19) THERAPEUTIC EXERCISES (02/07/20) THROMBOPLASTIN TIME PARTIAL (03/23/16) TISSUE EXAM BY PATHOLOGIST (10/11/18) TISSUE EXAM BY PATHOLOGIST (03/17/17) TTE W/DOPPLER COMPLETE (01/28/15) TX/PRO/DX INJ NEW DRUG ADDON (01/28/15) URINALYSIS AUTO W/SCOPE (10/19/17) URINE BACTERIA CULTURE (03/23/16) URINE CULTURE/COLONY COUNT (03/23/16) US EXAM ABDOM COMPLETE (03/03/16) X-RAY EXAM OF KNEE 3 (02/02/20) X-RAY EXAM OF KNEES (02/02/20) (1) Crohn's disease SNOMED Code(s): 14901201 Code(s): K50.90 - CROHN'S DISEASE, UNSPECIFIED, WITHOUT COMPLICATIONS Priority: Medium Current Visit: No (2) Type 2 diabetes mellitus SNOMED Code(s): 38894747 Code(s): E11.9 - TYPE 2 DIABETES MELLITUS WITHOUT COMPLICATIONS Current Visit: No Qualifiers: Diabetes mellitus moth exterminator insulin use: with halfway use Diabetes mellitus complication status: with other specified complication Qualified Code(s): E11.69 - Type 2 diabetes mellitus with other specified complication; Z79.4 - [facility] (current) use of insulin (3) Essential hypertension SNOMED Code(s): 62470387 Code(s): I10 - ESSENTIAL (PRIMARY) HYPERTENSION Current Visit: No Problem List Initiated/Reviewed/Updated: Yes My Orders Last 24 Hours: My Active Orders 04/11/20 14:28 Communication Order [RC] PRN Communication Order [RC] PRN Notify Provider [RC] PRN 04/11/20 17:00 Insulin Lispro [HumaLOG] 1 unit SUBCUT TIDMEALS Insulin Lispro [HumaLOG] See Protocol SUBCUT QIDACANDBED 04/11/20 18:00 Potassium Chloride [Klor-Con M20] 40 meq PO ONETIME ONE 04/12/20 07:30 GLUCOSE POC LAB TO COLLECT JPM [POC] QIDACANDBED 04/12/20 11:30 GLUCOSE POC LAB TO COLLECT JPM [POC] QIDACANDBED 04/12/20 16:30 GLUCOSE POC LAB TO COLLECT JPM [POC] QIDACANDBED 04/12/20 21:00 GLUCOSE POC LAB TO COLLECT JPM [POC] QIDACANDBED 04/13/20 07:30 GLUCOSE POC LAB TO COLLECT JPM [POC] QIDACANDBED 04/13/20 11:30 GLUCOSE POC LAB TO COLLECT JPM [POC] QIDACANDBED 04/13/20 16:30 GLUCOSE POC LAB TO COLLECT JPM [POC] QIDACANDBED 04/13/20 21:00 GLUCOSE POC LAB TO COLLECT JPM [POC] QIDACANDBED 04/14/20 07:30 GLUCOSE POC LAB TO COLLECT JPM [POC] QIDACANDBED 04/14/20 11:30 GLUCOSE POC LAB TO COLLECT JPM [POC] QIDACANDBED 04/14/20 16:30 GLUCOSE POC LAB TO COLLECT JPM [POC] QIDACANDBED 04/14/20 21:00 GLUCOSE POC LAB TO COLLECT JPM [POC] QIDACANDBED 04/15/20 07:30 GLUCOSE POC LAB TO COLLECT JPM [POC] QIDACANDBED 04/15/20 11:30 GLUCOSE POC LAB TO COLLECT JPM [POC] QIDACANDBED 04/15/20 16:30 GLUCOSE POC LAB TO COLLECT JPM [POC] QIDACANDBED Plan: ASSESSMENT AND RECOMMENDATIONS - Type 2 diabetes mellitus-patient reports good control at home. He uses a combination of glipizide twice daily, locked acting insulin in the evening and a carbohydrate-based dosing regimen with a low-dose sliding scale. -Continue glipizide -Lantus at bedtime -Insulin lispro 1 unit per carb plus low-dose sliding scale Essential hypertension-blood pressure has been well controlled recently. -Continue home medications Crohn's disease-complicated by perianal fistula. Otherwise stable. Duran Cali MD Requesting Provider: Dr Alonzo Date Consult Requested: 04/11/20 Reason for Consult: diabetes management Patient History Reviewed: Yes Admission H&P Reviewed: No Notified Requestor: No Time Spent (in minutes): 45
[2020-04-11] MEDS: Ketorolac 30 MG/ML SDV IVPUSH PRN ×2 (14:40→23:46)
[2020-04-11] MEDS ORDERED: HYDROmorphone 2 MG Tab PO PRN (15:53)
[2020-04-11] MEDS: HYDROmorphone 1 MG/ML Syringe IVPUSH PRN ×3 (16:02→19:24)
[2020-04-11] MEDS: HYDROmorphone 2 MG Tab PO PRN ×2 (16:06→20:20)
[2020-04-11] MEDS: glipiZIDE 5 MG Tab PO SCH (17:29)
[2020-04-11] MEDS ORDERED: Potassium Chloride 20 MEQ Tab.ER PO ONE (18:00)
[2020-04-11] MEDS: Insulin Lispro 100 Unit/ML 3 ML KwikPen SUBCUT SCH ×3 (18:33→21:46)
[2020-04-11] MEDS: Docusate Sodium 100 MG Cap PO SCH (21:29)
[2020-04-11] MEDS: Insulin Glargine,Human Rec. Analog 100 Units/ML 3 ML Pen SUBCUT SCH (21:43)
[2020-04-11] MEDS: Aspirin 325 MG Tab.EC PO SCH (21:43)
[2020-04-11] MEDS: Metoprolol Tartrate 25 MG Tab PO SCH (21:48)
[2020-04-11] MEDS: Acetaminophen 325 MG Tab PO PRN (21:50)
[2020-04-12] MEDS: HYDROmorphone 2 MG Tab PO PRN ×6 (00:47→23:55)
[2020-04-12] MEDS: Ketorolac 30 MG/ML SDV IVPUSH PRN (07:42)
[2020-04-12] MEDS: Insulin Lispro 100 Unit/ML 3 ML KwikPen SUBCUT SCH ×6 (07:46→17:46)
[2020-04-12] MEDS: Potassium Chloride 20 MEQ Tab.ER PO SCH (07:47)
[2020-04-12] MEDS: Potassium Chloride 10 MEQ Cap.ER PO SCH (07:48)
[2020-04-12] MEDS: Pantoprazole 40 MG Tab.CR PO SCH (07:48)
[2020-04-12] MEDS: Docusate Sodium 100 MG Cap PO SCH ×2 (09:39→21:10)
[2020-04-12] MEDS: Aspirin 325 MG Tab.EC PO SCH ×2 (09:39→21:10)
[2020-04-12] MEDS: Nozin Nasal Sanitizer NASBOTH SCH ×2 (09:39→21:09)
[2020-04-12] MEDS: Sertraline 50 MG Tab PO SCH (09:39)
[2020-04-12] MEDS: Metoprolol Tartrate 25 MG Tab PO SCH ×2 (09:40→21:10)
[2020-04-12] MEDS: atorvaSTATin 20 MG Tab PO SCH (09:41)
[2020-04-12] MEDS: glipiZIDE 5 MG Tab PO SCH ×2 (09:41→17:51)
[2020-04-12] MEDS: amLODIPine 10 MG Tab PO SCH (09:45)
[2020-04-12] MEDS: Hydrochlorothiazide 25 MG Tab PO SCH (09:45)
--- NOTE | 2020-04-12 13:03 | PCM.CONSN ---
- General Info Date of Service: 04/12/20 Subjective Update: Patient had significant pain yesterday afternoon but is doing better this morning. He has been able to ambulate significant distances in the [place]. Blood sugars were good yesterday but a little bit low this morning. No fevers. No abdominal pain or nausea. Blood pressures have been stable. Functional Status: Reports: Pain Controlled, Tolerating Diet - Patient Data Vitals - Most Recent: Last Vital Signs Temp 36.6 C 04/12/20 10:46 Pulse 70 04/12/20 10:46 Resp 18 04/12/20 10:46 BP 132/58 L 04/12/20 10:46 Pulse Ox 96 04/12/20 10:46 Weight - Most Recent: 112.576 kg I&O - Last 24 Hours: Intake & Output 04/11/20 04/12/20 04/12/20 22:59 06:59 14:59 Intake Total 990 995 700 Output Total 2750 1220 Balance -1760 -225 700 Lab Results Last 24 Hours: Laboratory Results - last 24 hr 04/11/20 04/11/20 04/12/20 Range/Units 16:30 21:00 07:30 POC Glucose 203 H 174 H 74 (74-106) MG/DL 04/12/20 Range/Units 11:30 POC Glucose 219 H (74-106) MG/DL Med Orders - Current: Current Medications Acetaminophen (Tylenol) 650 mg PO Q4H PRN PRN Reason: Pain/Fever Last Admin: 04/11/20 21:50 Dose: 650 mg Documented by: Amlodipine Besylate (Norvasc) 10 mg PO DAILY [facility] Last Admin: 04/12/20 09:45 Dose: 10 mg Documented by: Aspirin (Ecotrin) 325 mg PO BID [facility] Last Admin: 04/12/20 09:39 Dose: 325 mg Documented by: Atorvastatin Calcium (Lipitor) 40 mg PO DAILY [facility] Last Admin: 04/12/20 09:41 Dose: 40 mg Documented by: Bandage/Support Products ( Nasal Delinquent Account Clerk) 1 applic NASBOTH BID [facility] Last Admin: 04/12/20 09:39 Dose: 1 swab Documented by: Diphenoxylate HCl/Atropine (Lomotil 0.025-2.5 Mg) 2 tab PO Q4H PRN PRN Reason: Diarrhea Docusate Sodium (Colace) 100 mg PO BID [facility] Last Admin: 04/12/20 09:39 Dose: 100 mg Documented by: [facility] Last Admin: 04/12/20 09:41 Dose: 10 mg Documented by: Hydrochlorothiazide (Hydrochlorothiazide) 25 mg PO DAILY [facility] Last Admin: 04/12/20 09:45 Dose: 25 mg Documented by: Hydromorphone HCl (Dilaudid) 1 mg IVPUSH Q1H PRN PRN Reason: Pain (severe 7-10) Last Admin: 04/11/20 19:24 Dose: 1 mg Documented by: Hydromorphone HCl (Dilaudid) 0 mg PO Q4H PRN PRN Reason: Pain (moderate 4-6) Last Admin: 04/12/20 11:44 Dose: 4 mg Documented by: Lactated Ringer's (Ringers, Lactated) 1,000 mls @ 100 mls/hr IV ASDIRECTED [facility] Last Admin: 04/12/20 03:44 Dose: 100 mls/hr Documented by: Insulin Glargine (Lantus Solostar) 32 units SUBCUT BEDTIME [facility] Last Admin: 04/11/20 21:43 Dose: 24 units Documented by: Insulin Human Lispro (Humalog) 0 unit SUBCUT TIDMEALS [facility] Last Admin: 04/12/20 12:59 Dose: 8 units Documented by: Loperamide HCl (Imodium) 2 mg PO Q4H PRN PRN Reason: Diarrhea Last Admin: 04/11/20 19:23 Dose: 2 mg Documented by: Loratadine (Claritin) 10 mg PO DAILY PRN PRN Reason: Allergies Magnesium Hydroxide (Milk Of Magnesia) 30 ml PO BID PRN PRN Reason: Constipation Metoprolol Tartrate (Lopressor) 75 mg PO BID [facility] Last Admin: 04/12/20 09:40 Dose: 75 mg Documented by: Morphine Sulfate (Morphine) 2 mg IVPUSH Q1H PRN PRN Reason: Breakthrough Pain Last Admin: 04/11/20 13:29 Dose: 2 mg Documented by: (Alfuzosin [ Uroxatral] 10 Mg)* Pom* 10 mg PO DAILY [facility] Last Admin: 04/12/20 09:49 Dose: 10 mg Documented by: Non-Formulary Medication (Vedolizumab [Entyvio]) 300 mg IV Q60D [facility] Last Admin: 04/11/20 11:27 Dose: Not Given Documented by: Ondansetron HCl (Zofran) 4 mg IVPUSH Q6H PRN PRN Reason: Nausea/Vomiting Last Admin: 04/11/20 16:10 Dose: 4 mg Documented by: Pantoprazole Sodium (Protonix) 40 mg PO DAILY@0730 [facility] Last Admin: 04/12/20 07:48 Dose: 40 mg Documented by: Potassium Chloride (Klor-Con M20) 20 meq PO DAILY@0800 [facility] Last Admin: 04/12/20 07:47 Dose: 20 meq Documented by: Potassium Chloride (Potassium Chloride) 10 meq PO DAILY@0800 [facility] Last Admin: 04/12/20 07:48 Dose: 10 meq Documented by: Sertraline HCl (Zoloft) 50 mg PO QAM [facility] Last Admin: 04/12/20 09:39 Dose: 50 mg Documented by: Discontinued Medications Hydrocodone Bitart/Acetaminophen ([place] 325-5 Mg) 2 tab PO Q4H PRN PRN Reason: Pain (mild 1-3) Bupivacaine HCl (Marcaine 0.5%) Confirm Administered Dose 30 ml .ROUTE .STK-MED ONE Stop: 04/11/20 06:59 Diphenoxylate HCl/Atropine (Lomotil 0.025-2.5 Mg) 1 tab PO BID PRN PRN Reason: Diarrhea Fentanyl (Sublimaze) Confirm Administered Dose 100 mcg .ROUTE .STK-MED ONE Stop: 04/11/20 07:25 Clindamycin Phosphate 900 mg/ (Sodium Chloride) 106 mls @ 212 mls/hr IV ONETIME ONE Stop: 04/11/20 06:59 Last Admin: 04/11/20 07:38 Dose: 212 mls/hr Documented by: Lactated Ringer's (Ringers, Lactated) 1,000 mls @ 75 mls/hr IV ASDIRECTED [facility] Last Admin: 04/11/20 09:55 Dose: 75 mls/hr Documented by: Lactated Ringer's (Ringers, Lactated) Confirm Administered Dose 1,000 mls @ as directed .ROUTE .STK-MED ONE Stop: 04/11/20 09:03 Cefazolin Sodium 1 gm/ Sodium (Chloride) 50 mls @ 200 mls/hr IV Q8H [facility] Stop: 04/12/20 01:44 Last Admin: 04/11/20 19:13 Dose: Not Given Documented by: Cefazolin Sodium 1 gm/ Sodium (Chloride) 50 mls @ 200 mls/hr IV Q8H [facility] Stop: 04/12/20 02:37 Last Admin: 04/11/20 19:13 Dose: Not Given Documented by: Clindamycin Phosphate 600 mg/ (Sodium Chloride) 54 mls @ 108 mls/hr IV Q8H [facility] Stop: 04/12/20 06:29 Last Admin: 04/12/20 06:01 Dose: 108 mls/hr Documented by: Insulin Human Lispro (Humalog) 25 unit SUBCUT TIDMEALS [facility] Last Admin: 04/11/20 12:30 Dose: 10 units Documented by: Insulin Human Lispro (Humalog) 0 unit SUBCUT QIDACANDBED [facility]; Protocol Last Admin: 04/12/20 13:00 Dose: 2 units Documented by: Ketorolac Tromethamine (Toradol) 30 mg IVPUSH Q8H PRN PRN Reason: Pain (severe 7-10) Stop: 04/12/20 23:00 Last Admin: 04/12/20 07:42 Dose: 30 mg Documented by: Midazolam HCl (Versed 1 Mg/Ml) Confirm Administered Dose 2 mg .ROUTE .STK-MED ONE Stop: 04/11/20 07:26 Ondansetron HCl (Zofran) 4 mg IVPUSH ONETIME ONE Stop: 04/11/20 09:33 Last Admin: 04/11/20 09:37 Dose: 4 mg Documented by: Oxycodone/Acetaminophen (Percocet 325-5 Mg) 1 - 2 tab PO Q4H PRN PRN Reason: Pain Last Admin: 04/11/20 11:33 Dose: 1 tab Documented by: Potassium Chloride (Klor-Con M20) 40 meq PO ONETIME ONE Stop: 04/11/20 18:01 Last Admin: 04/11/20 18:35 Dose: 40 meq Documented by: Povidone Iodine (Betadine 10% Soln) Confirm Administered Dose 1 ml .ROUTE .STK- MED ONE Stop: 04/11/20 07:00 Last Admin: 04/11/20 09:00 Dose: 30 ml Documented by: Propofol (Diprivan 20 Ml) Confirm Administered Dose 200 mg .ROUTE .STK-MED ONE Stop: 04/11/20 07:25 Propofol (Diprivan 20 Ml) Confirm Administered Dose 200 mg .ROUTE .STK-MED ONE Stop: 04/11/20 08:06 Propofol (Diprivan 20 Ml) Confirm Administered Dose 200 mg .ROUTE .STK-MED ONE Stop: 04/11/20 08:26 Propofol (Diprivan 20 Ml) Confirm Administered Dose 200 mg .ROUTE .STK-MED ONE Stop: 04/11/20 08:50 - Exam Quality Assessment: No: Supplemental Oxygen General: Alert, Oriented, Cooperative, No Acute Distress Lungs: Normal Respiratory Effort GI/Abdominal Exam: Soft, No Distention Extremities: No Pedal Edema, Other (Left knee wrapped with an Viktor wrap) Skin: Warm, Dry Psy/Mental Status: Alert, Normal Affect Sepsis Event Note - Evaluation Sepsis Screening Result: No Definite Risk - Focused Exam Vital Signs: Vital Signs Temp Pulse Pulse Resp BP BP Pulse Ox 04/12/20 10:46 36.6 C 70 18 132/58 L 96 04/12/20 09:45 146/62 H 04/12/20 09:40 76 146/62 H 04/12/20 07:00 36.7 C 78 18 146/62 H 96 04/12/20 03:45 37.0 C 65 16 134/58 L 99 Date Exam was Performed: 04/12/20 Time Exam was Performed: 14:50 Consult PN Assessment/Plan POD#: 1 Procedures: Procedures ANOSCOPY AND BIOPSY (03/17/17) ASSAY OF AMMONIA (12/16/14) ASSAY OF AMYLASE (03/23/16) ASSAY OF CK (CPK) (03/03/16) ASSAY OF LACTIC ACID (03/23/16) ASSAY OF LIPASE (03/23/16) ASSAY OF MAGNESIUM (06/05/17) ASSAY OF PHOSPHORUS (06/05/17) ASSAY OF SERUM POTASSIUM (03/23/16) ASSAY OF TROPONIN QUANT (03/03/16) ASSAY THYROID STIM HORMONE (01/28/15) BLOOD CULTURE FOR BACTERIA (03/23/16) BLOOD PH (12/16/14) CARDIOVASCULAR STRESS TEST (11/11/18) CHEST X-RAY 2VW FRONTAL&LATL (12/16/14) COLONOSCOPY AND BIOPSY (10/11/18) COLONOSCOPY W/LESION REMOVAL (10/11/18) COMPLETE CBC AUTOMATED (06/05/17) COMPLETE CBC W/AUTO DIFF WBC (10/19/17) COMPREHEN METABOLIC PANEL (10/19/17) CREATINE MB FRACTION (03/03/16) CT HEAD/BRAIN W/O DYE (10/19/17) DRAIN/INJ JOINT/BURSA W/O US (02/02/20) ELECTROCARDIOGRAM REPORT (03/17/17) ELECTROCARDIOGRAM TRACING (03/17/17) EMERGENCY DEPT VISIT (10/19/17) EMERGENCY DEPT VISIT (03/23/16) EMERGENCY DEPT VISIT (06/04/15) EMERGENCY DEPT VISIT (06/04/15) EMERGENCY DEPT VISIT (01/28/15) EMERGENCY DEPT VISIT (01/28/15) EMERGENCY DEPT VISIT (12/16/14) EMERGENCY DEPT VISIT (12/16/14) EMERGENCY DEPT VISIT (12/02/14) EMERGENCY DEPT VISIT (12/02/14) EMERGENCY DEPT VISIT (09/24/14) EMERGENCY DEPT VISIT (09/24/14) EXTRACRANIAL BILAT STUDY (01/28/15) GLUCOSE BLOOD TEST (02/29/20) GLYCOSYLATED HEMOGLOBIN TEST (01/28/15) HEPATOBIL SYST IMAGE W/DRUG (03/03/16) HT MUSCLE IMAGE SPECT MULT (11/11/18) HYDRATE IV INFUSION ADD-ON (10/19/17) IMMUNOHISTO ANTB 1ST STAIN (10/11/18) KNEE ARTHROSCOPY/SURGERY (02/29/20) MANUAL THERAPY 1/> REGIONS (09/22/19) METABOLIC PANEL TOTAL CA (03/17/17) MICROBE SUSCEPTIBLE MARIELENA (03/23/16) MRI ABDOMEN W/O DYE (03/03/16) MRI JNT OF LWR EXTRE W/O DYE (02/22/20) OFFICE/OUTPATIENT VISIT EST (02/02/20) OFFICE/OUTPATIENT VISIT EST (10/11/19) OFFICE/OUTPATIENT VISIT NEW (05/24/19) PROTHROMBIN TIME (03/23/16) PT EVAL LOW COMPLEX 20 MIN (02/07/20) PT EVAL MOD COMPLEX 30 MIN (05/24/19) PT EVALUATION (03/23/16) PT RE-EVAL EST PLAN CARE (05/24/19) RBC SED RATE NONAUTOMATED (12/16/14) REAGENT STRIP/BLOOD GLUCOSE (01/28/15) REMOVE ANAL FIST COMPLEX (06/05/17) REMOVE ANAL FIST SUBQ (03/17/17) ROUTINE VENIPUNCTURE (10/19/17) SELF CARE MNGMENT TRAINING (07/26/19) THER/DIAG CONCURRENT INF (01/28/15) THER/PROPH/DIAG INJ IV PUSH (10/19/17) THER/PROPH/DIAG INJ SC/IM (12/16/14) THER/PROPH/DIAG IV INF INIT (01/28/15) THERAPEUTIC ACTIVITIES (11/23/19) THERAPEUTIC EXERCISES (02/07/20) THROMBOPLASTIN TIME PARTIAL (03/23/16) TISSUE EXAM BY PATHOLOGIST (10/11/18) TISSUE EXAM BY PATHOLOGIST (03/17/17) TTE W/DOPPLER COMPLETE (01/28/15) TX/PRO/DX INJ NEW DRUG ADDON (01/28/15) URINALYSIS AUTO W/SCOPE (10/19/17) URINE BACTERIA CULTURE (03/23/16) URINE CULTURE/COLONY COUNT (03/23/16) US EXAM ABDOM COMPLETE (03/03/16) X-RAY EXAM OF KNEE 3 (02/02/20) X-RAY EXAM OF KNEES (02/02/20) (1) Crohn's disease SNOMED Code(s): 36007804 Code(s): K50.90 - CROHN'S DISEASE, UNSPECIFIED, WITHOUT COMPLICATIONS Priority: Medium Current Visit: No (2) Type 2 diabetes mellitus SNOMED Code(s): 09159252 Code(s): E11.9 - TYPE 2 DIABETES MELLITUS WITHOUT COMPLICATIONS Current Visit: No Qualifiers: Diabetes mellitus longterm insulin use: with termite exterminator use Diabetes mellitus complication status: with other specified complication Qualified Cod e(s): E11.69 - Type 2 diabetes mellitus with other specified complication; Z79.4 - terminal press operator (current) use of insulin (3) Essential hypertension SNOMED Code(s): 44288806 Code(s): I10 - ESSENTIAL (PRIMARY) HYPERTENSION Current Visit: No Problem List Initiated/Reviewed/Updated: Yes My Orders Last 24 Hours: My Active Orders 04/11/20 14:28 Communication Order [RC] PRN Communication Order [RC] PRN Notify Provider [RC] PRN 04/11/20 17:00 Insulin Lispro [HumaLOG] 0 unit SUBCUT TIDMEALS 04/11/20 17:39 Atropine/Diphenoxylate [Lomotil 0.025-2.5 MG] 2 tab PO Q4H PRN 04/12/20 16:00 Insulin Lispro [HumaLOG] See Protocol SUBCUT TIDAC 04/12/20 16:30 GLUCOSE POC LAB TO COLLECT JPM [POC] QIDACANDBED 04/12/20 21:00 GLUCOSE POC LAB TO COLLECT JPM [POC] QIDACANDBED 04/13/20 05:00 BASIC METABOLIC PANEL,BMP [CHEM] Timed 04/13/20 07:30 GLUCOSE POC LAB TO COLLECT JPM [POC] QIDACANDBED 04/13/20 11:30 GLUCOSE POC LAB TO COLLECT JPM [POC] QIDACANDBED 04/13/20 16:30 GLUCOSE POC LAB TO COLLECT JPM [POC] QIDACANDBED 04/13/20 21:00 GLUCOSE POC LAB TO COLLECT JPM [POC] QIDACANDBED 04/14/20 07:30 GLUCOSE POC LAB TO COLLECT JPM [POC] QIDACANDBED 04/14/20 11:30 GLUCOSE POC LAB TO COLLECT JPM [POC] QIDACANDBED 04/14/20 16:30 GLUCOSE POC LAB TO COLLECT JPM [POC] QIDACANDBED 04/14/20 21:00 GLUCOSE POC LAB TO COLLECT JPM [POC] QIDACANDBED 04/15/20 07:30 GLUCOSE POC LAB TO COLLECT JPM [POC] QIDACANDBED 04/15/20 11:30 GLUCOSE POC LAB TO COLLECT JPM [POC] QIDACANDBED 04/15/20 16:30 GLUCOSE POC LAB TO COLLECT JPM [POC] QIDACANDBED Plan: ASSESSMENT AND RECOMMENDATIONS - Type 2 diabetes mellitus-patient reports good control at home. Sugar slightly low this morning but otherwise they have been well controlled. -Continue glipizide -Lantus at bedtime -Insulin lispro 1 unit per carb plus low-dose sliding scale Essential hypertension-blood pressure has been well controlled. -Continue home medications Crohn's disease-complicated by perianal fistula. Otherwise stable. Obstructive sleep apnea-using CPAP. Duran Cali MD
[2020-04-12] MEDS: Insulin Glargine,Human Rec. Analog 100 Units/ML 3 ML Pen SUBCUT SCH (21:06)
[2020-04-13] MEDS: Acetaminophen 325 MG Tab PO PRN ×2 (00:07→09:50)
[2020-04-13] MEDS: HYDROmorphone 2 MG Tab PO PRN ×2 (04:07→12:37)
[2020-04-13] MEDS: Insulin Lispro 100 Unit/ML 3 ML KwikPen SUBCUT SCH ×3 (07:46→11:04)
[2020-04-13] MEDS: glipiZIDE 5 MG Tab PO SCH (07:51)
[2020-04-13] MEDS: Pantoprazole 40 MG Tab.CR PO SCH (07:53)
[2020-04-13 10:37] VITALS: BP 147/63; PULSE 73
[2020-04-13] MEDS: atorvaSTATin 20 MG Tab PO SCH (11:04)
[2020-04-13] MEDS: Metoprolol Tartrate 25 MG Tab PO SCH (11:05)
[2020-04-13] MEDS: Potassium Chloride 10 MEQ Cap.ER PO SCH (11:05)
[2020-04-13] MEDS: amLODIPine 10 MG Tab PO SCH (11:05)
[2020-04-13] MEDS: Aspirin 325 MG Tab.EC PO SCH (11:06)
[2020-04-13] MEDS: Docusate Sodium 100 MG Cap PO SCH (11:06)
[2020-04-13] MEDS: Potassium Chloride 20 MEQ Tab.ER PO SCH (11:06)
[2020-04-13] MEDS: Hydrochlorothiazide 25 MG Tab PO SCH (11:06)
[2020-04-13] MEDS: Nozin Nasal Sanitizer NASBOTH SCH (11:06)
[2020-04-13] MEDS: Sertraline 50 MG Tab PO SCH (11:07)
[2020-04-13] MEDS ORDERED: Potassium Chloride 20 MEQ Tab.ER PO ONE (12:00)
[2020-04-13] MEDS ORDERED: HYDROmorphone 2 MG Tab ONE (12:34)
--- NOTE | 2020-04-17 11:43 | OR ---
DATE OF PROCEDURE: 04/11/2020 SURGEON: Og Alonzo MD PREOPERATIVE DIAGNOSIS: Osteoarthritis, left knee, medial compartment. POSTOPERATIVE DIAGNOSIS: Osteoarthritis, left knee, medial compartment. PROCEDURE: Left medial unicompartmental arthroplasty using [employer] ZUK components with a size E femur, 3 tibia, and 8 mm polyethylene. ANESTHESIA: Spinal with sedation. INDICATIONS: Yevgeniy is a very pleasant 70-year-old gentleman with a history of rapidly progressive left knee pain. Recently underwent arthroscopy due to significant increase in pain and difficulty with ambulation. This revealed a full thickness articular cartilage loss from the majority of the medial femoral condyle. Lateral compartment and patellofemoral compartments were still well preserved. He now presents for a medial unicompartmental arthroplasty. Risks, benefits, potential complications of the procedure were discussed. DESCRIPTION OF PROCEDURE: After adequate anesthesia was obtained, the patient was placed supine with a tourniquet about the left upper thigh. Left leg was prepped and draped in a sterile fashion. Leg was exsanguinated and tourniquet inflated to 300 mmHg pressure. Longitudinal incision was made just medial of midline, carried down to the subcutaneous tissues and a medial parapatellar arthrotomy was performed just up to the insertion of the VMO. Anterior horn of the medial meniscus was excised and the anterior lip of the tibia was resected with oscillating saw. Knee was extended and extramedullary alignment jig was placed, aligned, and secured. Distal femoral cut was made. This portion of the jig was removed. The knee was flexed, and the proximal tibia was then resected with a combination of oscillating and reciprocating saws. Remaining medial meniscus was excised. The femur is sized to E component. Cutting jig was secured and remaining femoral preparation was completed. Tibia sized to a 3 component. Base plate is tapped into position. Peg holes were drilled and an 8 mm trial is placed. He was taken through range of motion, which shows excellent balance in flexion and extension with full extension. Components were removed. The knee was thoroughly irrigated with pulse lavage. Bone surfaces were dried. Components were cemented in place and excess cement was removed. The knee was held in full extension with the 8 mm implant and the 2 mm gap insert. Knee was then taken through range of motion and flexion-extension gaps confirmed. 8 mm trial was removed and replaced with the final polyethylene. Knee was irrigated once again including dilute Betadine solution and then closed with #2 Ethibond in a running fashion, the capsule with 2-0 Vicryl and a running 3-0 Monocryl in the skin. Steri-Strips were applied. Light compressive dressing was then placed. The patient tolerated the procedure well with no complications. He was taken from the operating room in stable condition. Og Alonzo MD /[id number]
== END 2020-04-13 13:00 | disposition home or self-care (01) ==
LOC: JP.SDS 05:49 → JP.MS 09:19 → JP.SDS 04-13 13:00 → JP.SDSSCHI 04-13 13:05 → JP.MS 04-13 13:12
PROVIDERS: ATTEND Specialist
DX: M17.12 Unilateral primary osteoarthritis, left knee (principal); K21.9 Gastro-esophageal reflux disease without esophagitis; E66.9 Obesity, unspecified; E78.00 Pure hypercholesterolemia, unspecified; I10 Essential (primary) hypertension; K50.90 Crohn's disease, unspecified, without complications; F41.9 Anxiety disorder, unspecified; E11.69 Type 2 diabetes mellitus with other specified complication; G47.33 Obstructive sleep apnea (adult) (pediatric); Z79.4 Long term (current) use of insulin; Z68.31 Body mass index [BMI] 31.0-31.9, adult; Z88.0 Allergy status to penicillin; Z79.899 Other long term (current) drug therapy; Z99.89 Dependence on other enabling machines and devices
CPT/HCPCS: 27446; 36415; 73560; 80048; 80053; 82962; 85027; 97110; 97116; 97161; 97530; 97535; A9270; C1713; C1776; J1170; J1815; J1885; J2270; J2405; J2704; J3010; J3490; J7050; J7120; J2250

== ENCOUNTER 2020-11-21 07:38 | Day surgery (SDC) | payer MEDICARE, OTHER ==
[2020-11-21] MEDS ORDERED: Nozin Nasal Sanitizer NASBOTH ONE (08:00)
[2020-11-21] MEDS ORDERED: fentaNYL 100 MCG/2 ML SDV ONE (08:13)
[2020-11-21] MEDS ORDERED: Midazolam 1 MG/ML 2 ML SDV ONE (08:13)
[2020-11-21] MEDS ORDERED: Propofol 200 MG/20 ML SDV ONE (08:13)
[2020-11-21] MEDS ORDERED: Lactated Ringers 1,000 ML IV SCH (08:15)
[2020-11-21] MEDS ORDERED: Bupivacaine 0.5% 30 ML SDV ONE (08:43)
[2020-11-21] MEDS ORDERED: Povidone-Iodine 10% Soln 118.25 ML Bottle ONE (08:44)
[2020-11-21 12:07] VITALS: PULSE 56
[2020-11-21 12:23] VITALS: BP 163/81
[2020-11-21] MEDS ORDERED: Acetaminophen/oxyCODONE 325-5 MG Tab PO PRN (15:50)
--- NOTE | 2020-12-05 20:46 | OR ---
DATE OF PROCEDURE: 11/21/2020 SURGEON: Og Alonzo MD PREOPERATIVE DIAGNOSIS: Synovitis with excessive scarring, medial compartment, left knee. POSTOPERATIVE DIAGNOSIS: Synovitis with excessive scarring, medial compartment, left knee, with presence of pseudomeniscus medially. PROCEDURE: Arthroscopy of left knee with limited synovectomy and debridement of scar tissue. ANESTHESIA: Spinal with sedation. INDICATIONS: Yevgeniy is a 70-year-old gentleman who had previously undergone a medial unicompartmental arthroplasty of the left knee. He has had persistent medial and anteromedial knee pain. He has failed conservative treatment. X-rays revealed no evidence of complication with the prosthesis and no progression of joint space collapse in the lateral or patellofemoral joint. Plan, arthroscopy for evaluation of the lateral and patellofemoral joints for any progression of arthritic change and debridement of presumed scar tissue adjacent to the prosthesis. Risks, benefits, potential complications of the procedure were discussed. He is aware that there is a possibility of converting the unicompartmental over to a total knee arthroplasty if additional changes are noted in the other 2 compartments. DESCRIPTION OF PROCEDURE: After adequate anesthesia was obtained, patient was placed supine with a tourniquet about the left upper thigh. Left leg was prepped and draped in a sterile fashion. Leg was exsanguinated and tourniquet inflated to 300 mmHg pressure. Standard anterior portals were established and scope was introduced taking care not to make direct contact with the prosthesis. Patellofemoral joint initially showed extremely good cartilage of the dome of the patella and trochlea. Along the medial facet of the trochlea going more down into the condyle, there was a faint linear fissure without significant cartilage loss. Moving more into the medial compartment, the scar tissue was present with strands impinging between the prosthesis on the femur and the tibial polyethylene. Some mild overgrowth noted around the femoral component, predominantly over the anterior edge adjacent to the intercondylar notch. Shaver was introduced and the scar tissue was debrided. This provided better view of the tibial component. It showed development of a pseudomeniscus which had encroached onto the tibial polyethylene and impinging between the prostheses for a distance of several millimeters. Inspection of the intercondylar notch revealed intact ACL and PCL. Lateral compartment showed intact meniscus and no degenerative change on the femoral condyle or tibial plateau. Attention was returned to the medial compartment where a combination of shaver and the Serfas ablation wand was utilized to debride the scar tissue surrounding the tibial polyethylene. This was taken back to the posterior joint capsule. Additional inspection revealed no other areas of concern. Knee was drained and scope was withdrawn. Port sites were closed in a standard fashion, infiltrated with Marcaine and a sterile dressing was applied. The patient tolerated the procedure very well. There were no complications. Taken from the operating room in stable condition. Og Alonzo MD /[id number] [id number]
== END 2020-11-21 16:30 | disposition home or self-care (01) ==
LOC: JP.SDS 07:38
PROVIDERS: ATTEND Specialist
DX: M65.862 Other synovitis and tenosynovitis, left lower leg (principal); M23.304 Other meniscus derangements, unspecified medial meniscus, left knee; I10 Essential (primary) hypertension; I25.10 Atherosclerotic heart disease of native coronary artery without angina pectoris; G47.33 Obstructive sleep apnea (adult) (pediatric); N40.0 Benign prostatic hyperplasia without lower urinary tract symptoms; E78.00 Pure hypercholesterolemia, unspecified; E11.9 Type 2 diabetes mellitus without complications; K50.90 Crohn's disease, unspecified, without complications; Z88.0 Allergy status to penicillin; Z88.1 Allergy status to other antibiotic agents; Z95.5 Presence of coronary angioplasty implant and graft; Z98.890 Other specified postprocedural states
CPT/HCPCS: 29877; 36415; 80053; 85027; 93005; A9270; J2704; J3010; J3370; J7050; J7120; J2250; J3490

== ENCOUNTER 2022-05-19 05:54 | Day surgery (SDC) | payer MEDICARE, OTHER ==
[2022-05-19] MEDS ORDERED: Dextrose 5%-Lactated Ringers 1,000 ML IV SCH (07:00)
[2022-05-19] MEDS ORDERED: fentaNYL 100 MCG/2 ML SDV ONE (07:08)
[2022-05-19] MEDS ORDERED: Propofol 200 MG/20 ML SDV ONE ×5 (07:08→09:08)
[2022-05-19 10:36] VITALS: BP 140/70; PULSE 70
== END 2022-05-19 11:05 | disposition home or self-care (01) ==
LOC: JP.SDS 05:54
PROVIDERS: ATTEND Surgery
DX: D12.3 Benign neoplasm of transverse colon (principal); D12.4 Benign neoplasm of descending colon; D12.2 Benign neoplasm of ascending colon; D12.0 Benign neoplasm of cecum; K50.113 Crohn's disease of large intestine with fistula; I10 Essential (primary) hypertension; I25.10 Atherosclerotic heart disease of native coronary artery without angina pectoris; E11.9 Type 2 diabetes mellitus without complications; K21.9 Gastro-esophageal reflux disease without esophagitis; E66.9 Obesity, unspecified; Z88.1 Allergy status to other antibiotic agents; Z86.010 Personal history of colon polyps; Z87.19 Personal history of other diseases of the digestive system; Z88.8 Allergy status to other drugs, medicaments and biological substances
CPT/HCPCS: 45385; 88305; J2704; J3010; J7121

== ENCOUNTER 2022-05-28 13:25 | Inpatient (IN) | payer MEDICARE, OTHER ==
[2022-05-28] MEDS ORDERED: Sodium Chloride 0.9% 10 ML Syringe FLUSH PRN ×2 (13:40→16:29)
[2022-05-28 14:34] LABS: ESTIMATED GFR 49 mL/min (>60)
[2022-05-28] MEDS ORDERED: LORazepam 2 MG/ML SDV IVPUSH ONE (14:48)
[2022-05-28] MEDS ORDERED: Sodium Chloride 0.9% 1,000 ML IV SCH (15:00)
[2022-05-28] MEDS ORDERED: Ondansetron 4 MG/2 ML SDV IV PRN (16:29)
[2022-05-28] MEDS ORDERED: Insulin Glargine,Human Rec. Analog 100 Units/ML 3 ML Pen SUBCUT PRN (16:29)
[2022-05-28] MEDS ORDERED: 50% Dextrose in Water 50 ML Syringe IV PRN (16:29)
[2022-05-28] MEDS ORDERED: LORazepam 1 MG Tab PO PRN (16:29)
[2022-05-28] MEDS ORDERED: Acetaminophen 325 MG Tab PO PRN (16:29)
[2022-05-28] MEDS ORDERED: Glucose Gel 15 GM in 37.5 GM Tube PO PRN (16:29)
[2022-05-28] MEDS: Sodium Chloride 0.9% 1,000 ML IV SCH (17:22)
[2022-05-28] MEDS: Insulin Lispro 100 Unit/ML 3 ML KwikPen SUBCUT SCH ×2 (17:24→21:13)
[2022-05-28] MEDS: Metoprolol Tartrate 50 MG Tab PO SCH (21:04)
[2022-05-28] MEDS: atorvaSTATin 20 MG Tab PO SCH (21:04)
[2022-05-28] MEDS: Melatonin 3 MG Tab PO SCH (23:04)
[2022-05-29] MEDS: Sodium Chloride 0.9% 1,000 ML IV SCH (00:19)
[2022-05-29] MEDS: Insulin Lispro 100 Unit/ML 3 ML KwikPen SUBCUT SCH ×4 (07:40→21:48)
[2022-05-29] MEDS: Tamsulosin 0.4 MG Cap.ER PO SCH (08:17)
[2022-05-29] MEDS: Sertraline 50 MG Tab PO SCH (08:17)
[2022-05-29] MEDS: Potassium Chloride 10 MEQ Cap.ER PO SCH (08:17)
[2022-05-29] MEDS: Pantoprazole 40 MG Tab.CR PO SCH (08:18)
[2022-05-29] MEDS: Metoprolol Tartrate 50 MG Tab PO SCH ×2 (08:18→21:48)
[2022-05-29] MEDS ORDERED: Lidocaine 1% 4 ML ONE (10:59)
[2022-05-29] MEDS ORDERED: Sodium Chloride 0.9% 1,000 ML IV SCH (11:15)
[2022-05-29] MEDS ORDERED: Melatonin 3 MG Tab PO SCH (21:00)
[2022-05-29] MEDS: atorvaSTATin 20 MG Tab PO SCH (21:49)
[2022-05-29] MEDS: Melatonin 3 MG Tab PO SCH (23:03)
[2022-05-30 07:14] VITALS: BP 165/73; PULSE 68
[2022-05-30] MEDS: Insulin Lispro 100 Unit/ML 3 ML KwikPen SUBCUT SCH (07:53)
[2022-05-30] MEDS: Pantoprazole 40 MG Tab.CR PO SCH (07:54)
[2022-05-30] MEDS: Metoprolol Tartrate 50 MG Tab PO SCH (08:03)
[2022-05-30] MEDS: Sertraline 50 MG Tab PO SCH (08:04)
[2022-05-30] MEDS: Tamsulosin 0.4 MG Cap.ER PO SCH (08:04)
[2022-05-30] MEDS: Potassium Chloride 10 MEQ Cap.ER PO SCH (08:04)
== END 2022-05-30 10:55 | disposition home or self-care (01) | DRG 378 ==
LOC: JP.ED 13:25 → JP.ICU 15:15
PROVIDERS: ADMIT Hospitalist; ATTEND Hospitalist
DX: K92.2 Gastrointestinal hemorrhage, unspecified (principal); D62 Acute posthemorrhagic anemia; K50.90 Crohn's disease, unspecified, without complications; Z79.01 Long term (current) use of anticoagulants; H91.90 Unspecified hearing loss, unspecified ear; H54.7 Unspecified visual loss; Z72.89 Other problems related to lifestyle; Z20.822 Contact with and (suspected) exposure to COVID-19; I48.91 Unspecified atrial fibrillation; E78.00 Pure hypercholesterolemia, unspecified; Z95.5 Presence of coronary angioplasty implant and graft; G47.30 Sleep apnea, unspecified; K59.09 Other constipation; K52.9 Noninfective gastroenteritis and colitis, unspecified; I25.10 Atherosclerotic heart disease of native coronary artery without angina pectoris; I10 Essential (primary) hypertension; N42.9 Disorder of prostate, unspecified; M19.90 Unspecified osteoarthritis, unspecified site; M10.9 Gout, unspecified; F41.9 Anxiety disorder, unspecified; Z96.652 Presence of left artificial knee joint; F10.10 Alcohol abuse, uncomplicated; D64.9 Anemia, unspecified; E66.9 Obesity, unspecified; E61.1 Iron deficiency; Z08 Encounter for follow-up examination after completed treatment for malignant neoplasm; Z85.828 Personal history of other malignant neoplasm of skin; Z87.442 Personal history of urinary calculi; Z88.0 Allergy status to penicillin; Z79.899 Other long term (current) drug therapy; Z88.1 Allergy status to other antibiotic agents; Z86.010 Personal history of colon polyps; Z79.4 Long term (current) use of insulin; K21.9 Gastro-esophageal reflux disease without esophagitis; N40.0 Benign prostatic hyperplasia without lower urinary tract symptoms; Z87.440 Personal history of urinary (tract) infections; Z86.19 Personal history of other infectious and parasitic diseases; Z90.49 Acquired absence of other specified parts of digestive tract; Z79.84 Long term (current) use of oral hypoglycemic drugs; Z68.30 Body mass index [BMI] 30.0-30.9, adult; E11.9 Type 2 diabetes mellitus without complications
CPT/HCPCS: 36415; 80053; 80307; 85025; 86850; 86900; 86901; 86920; 86922; 93005; 96361; 96374; 99285; J2060; J3490; J7030; U0002; 80048; 82947; 85018; A9270-GY; J1815; J1815-GY

== ENCOUNTER 2022-08-12 13:40 | Inpatient (IN) | payer MEDICARE, OTHER ==
[2022-08-12] MEDS ORDERED: Thiamine 100 MG, Magnesium Sulfate 2 GM, MVI, Adult with Vitamin K 10 ML, Folic Acid 1 ... IV ONE ×10 (14:37→16:00)
[2022-08-12] MEDS ORDERED: Folic Acid 1 MG Tab PO ONE (14:37)
[2022-08-12] MEDS ORDERED: Ondansetron 4 MG/2 ML SDV IVPUSH ONE (14:37)
[2022-08-12] MEDS ORDERED: MVI, Adult with Vitamin K 10 ML in Sodium Chloride 0.9% 1,000 ML IV ONE ×2 (14:37)
[2022-08-12] MEDS ORDERED: Lactated Ringers 1,000 ML IV SCH (14:45)
[2022-08-12 15:16] LABS: ESTIMATED GFR 37 mL/min (>60)
[2022-08-12] MEDS ORDERED: Magnesium Sulfate/Water 2 GM in Premix Bag 1 BAG IV ONE (15:34)
[2022-08-12] MEDS ORDERED: Potassium Chloride 20 MEQ in Premix Bag 1 BAG IV SCH (16:00)
[2022-08-12] MEDS: Potassium Chloride 10 MEQ in Premix Bag 1 BAG IV SCH ×6 (16:21→23:43)
[2022-08-12] MEDS: NS + KCl 20mEq/L 1,000 ML IV SCH (18:36)
[2022-08-12] MEDS ORDERED: Metoclopramide 10 MG/2 ML SDV IVPUSH ONE (18:43)
[2022-08-12] MEDS ORDERED: oxyCODONE 5 MG Tab PO PRN (19:12)
[2022-08-12] MEDS ORDERED: HYDROmorphone 0.5 MG/0.5 ML Syringe IVPUSH PRN (19:12)
[2022-08-12] MEDS ORDERED: Ondansetron 4 MG/2 ML SDV IV PRN (19:12)
[2022-08-12] MEDS ORDERED: Albuterol 0.083% 2.5 MG/3 ML Neb Soln NEB PRN (19:12)
[2022-08-12] MEDS ORDERED: Ondansetron 4 MG Tab.DIS PO PRN (19:12)
[2022-08-12] MEDS ORDERED: Loratadine 10 MG Tab PO PRN (19:33)
[2022-08-12] MEDS: LORazepam 2 MG/ML SDV IV SCH ×2 (20:01→22:49)
[2022-08-12] MEDS: Metoprolol Tartrate 50 MG Tab PO SCH (20:11)
[2022-08-12] MEDS: Melatonin 3 MG Tab PO SCH (21:14)
[2022-08-12] MEDS: atorvaSTATin 20 MG Tab PO SCH (21:14)
[2022-08-12] MEDS: Gabapentin 400 MG Cap PO SCH (21:14)
[2022-08-12] MEDS: Insulin Glargine,Human Rec. Analog 100 Units/ML 3 ML Pen SUBCUT SCH (21:20)
[2022-08-12] MEDS: Insulin Lispro 100 Unit/ML 3 ML KwikPen SUBCUT SCH (21:20)
[2022-08-12] MEDS ORDERED: Potassium Chloride 20 MEQ Tab.ER PO ONE (22:32)
[2022-08-12] MEDS ORDERED: Potassium Chloride 10 MEQ in Premix Bag 4 BAG IV ONE (23:00)
[2022-08-13] MEDS: Potassium Chloride 10 MEQ in Premix Bag 1 BAG IV SCH ×10 (00:46→20:42)
[2022-08-13] MEDS ORDERED: Diltiazem 25 MG/5 ML SDV IVPUSH ONE ×4 (00:53→05:18)
[2022-08-13] MEDS ORDERED: Diltiazem 125 MG in Sodium Chloride 0.9% 100 ML IV SCH (01:00)
[2022-08-13] MEDS: LORazepam 2 MG/ML SDV IV SCH (01:13)
[2022-08-13] MEDS ORDERED: LORazepam 2 MG/ML SDV IVPUSH ONE (01:50)
[2022-08-13] MEDS: Diltiazem 100 MG in Sodium Chloride 0.9% 100 ML IV SCH ×4 (01:51→20:42)
[2022-08-13] MEDS: Haloperidol Lactate 5 MG/ML SDV IVPUSH PRN ×2 (02:44→09:46)
[2022-08-13 05:20] LABS: ESTIMATED GFR 45 mL/min (>60)
[2022-08-13] MEDS: NS + KCl 20mEq/L 1,000 ML IV SCH (05:37)
[2022-08-13] MEDS: Insulin Lispro 100 Unit/ML 3 ML KwikPen SUBCUT SCH ×4 (08:23→20:40)
[2022-08-13] MEDS: Pantoprazole 40 MG Tab.CR PO SCH (09:10)
[2022-08-13] MEDS: Folic Acid 1 MG Tab PO SCH (10:29)
[2022-08-13] MEDS: Tamsulosin 0.4 MG Cap.ER PO SCH (10:29)
[2022-08-13] MEDS: Hydrochlorothiazide 25 MG Tab PO SCH (10:29)
[2022-08-13] MEDS: Magnesium Sulfate/Water 2 GM in Premix Bag 1 BAG IV SCH ×3 (10:40→22:03)
[2022-08-13] MEDS: Metoprolol Tartrate 50 MG Tab PO SCH ×2 (10:43→20:43)
[2022-08-13] MEDS: Gabapentin 400 MG Cap PO SCH ×3 (10:43→20:43)
[2022-08-13] MEDS: amLODIPine 5 MG Tab PO SCH (10:44)
[2022-08-13] MEDS: Thiamine 100 MG Tab PO SCH (10:44)
[2022-08-13] MEDS: Sertraline 50 MG Tab PO SCH (10:44)
[2022-08-13] MEDS: LORazepam 1 MG Tab PO SCH ×3 (12:15→20:42)
[2022-08-13] MEDS: Rivaroxaban 10 MG Tab PO SCH ×2 (17:02→17:12)
[2022-08-13] MEDS: Insulin Glargine,Human Rec. Analog 100 Units/ML 3 ML Pen SUBCUT SCH (20:41)
[2022-08-13] MEDS: atorvaSTATin 20 MG Tab PO SCH (20:42)
[2022-08-13] MEDS: Melatonin 3 MG Tab PO SCH (20:43)
[2022-08-14] MEDS: LORazepam 2 MG/ML SDV IV SCH ×10 (01:31→22:25)
[2022-08-14] MEDS: NS + KCl 20mEq/L 1,000 ML IV SCH (02:54)
[2022-08-14] MEDS: Diltiazem 100 MG in Sodium Chloride 0.9% 100 ML IV SCH ×3 (02:55→17:24)
[2022-08-14] MEDS: Magnesium Sulfate/Water 2 GM in Premix Bag 1 BAG IV SCH (03:01)
[2022-08-14] MEDS: Haloperidol Lactate 5 MG/ML SDV IVPUSH PRN ×3 (05:08→18:54)
[2022-08-14] MEDS: Insulin Lispro 100 Unit/ML 3 ML KwikPen SUBCUT SCH ×4 (07:41→20:12)
[2022-08-14] MEDS: Pantoprazole 40 MG Tab.CR PO SCH (09:22)
[2022-08-14] MEDS: Potassium Chloride 10 MEQ in Premix Bag 1 BAG IV SCH ×8 (09:22→21:26)
[2022-08-14] MEDS: amLODIPine 5 MG Tab PO SCH (09:34)
[2022-08-14] MEDS: Metoprolol Tartrate 50 MG Tab PO SCH (09:34)
[2022-08-14] MEDS: Sertraline 50 MG Tab PO SCH (09:34)
[2022-08-14] MEDS: Gabapentin 400 MG Cap PO SCH ×3 (09:34→20:19)
[2022-08-14] MEDS: Thiamine 100 MG Tab PO SCH (09:34)
[2022-08-14] MEDS: Tamsulosin 0.4 MG Cap.ER PO SCH (09:35)
[2022-08-14] MEDS: Folic Acid 1 MG Tab PO SCH (09:35)
[2022-08-14] MEDS: Hydrochlorothiazide 25 MG Tab PO SCH (09:35)
[2022-08-14] MEDS: Metoprolol Tartrate 5 MG/5 ML SDV IVPUSH SCH ×4 (11:28→22:35)
[2022-08-14] MEDS: Rivaroxaban 10 MG Tab PO SCH ×2 (17:22→17:43)
[2022-08-14] MEDS: Insulin Glargine,Human Rec. Analog 100 Units/ML 3 ML Pen SUBCUT SCH (20:15)
[2022-08-14] MEDS: Melatonin 3 MG Tab PO SCH (20:19)
[2022-08-14] MEDS: atorvaSTATin 20 MG Tab PO SCH (20:19)
[2022-08-15] MEDS: Haloperidol Lactate 5 MG/ML SDV IVPUSH PRN ×5 (00:10→21:16)
[2022-08-15] MEDS: LORazepam 2 MG/ML SDV IV SCH ×10 (01:09→22:09)
[2022-08-15] MEDS: Diltiazem 100 MG in Sodium Chloride 0.9% 100 ML IV SCH ×3 (01:27→17:16)
[2022-08-15] MEDS: Metoprolol Tartrate 5 MG/5 ML SDV IVPUSH SCH ×6 (02:49→23:32)
[2022-08-15 05:22] LABS: ESTIMATED GFR 70 mL/min (>60)
[2022-08-15] MEDS: Pantoprazole 40 MG Tab.CR PO SCH (07:43)
[2022-08-15] MEDS: Insulin Lispro 100 Unit/ML 3 ML KwikPen SUBCUT SCH ×4 (07:55→20:42)
[2022-08-15] MEDS: Folic Acid 1 MG Tab PO SCH (08:10)
[2022-08-15] MEDS: Tamsulosin 0.4 MG Cap.ER PO SCH (08:10)
[2022-08-15] MEDS: amLODIPine 5 MG Tab PO SCH (08:11)
[2022-08-15] MEDS: Hydrochlorothiazide 25 MG Tab PO SCH (08:11)
[2022-08-15] MEDS: Gabapentin 400 MG Cap PO SCH ×3 (08:11→20:47)
[2022-08-15] MEDS: Thiamine 100 MG Tab PO SCH (08:12)
[2022-08-15] MEDS: Sertraline 50 MG Tab PO SCH (08:12)
[2022-08-15] MEDS: Enoxaparin 40 MG/0.4 ML Syringe SUBCUT SCH (11:12)
[2022-08-15] MEDS: Zinc Oxide 20% Oint 56.7 GM Tube TOP PRN (11:18)
[2022-08-15] MEDS: Potassium Chloride 10 MEQ in Premix Bag 1 BAG IV SCH ×4 (11:35→14:53)
[2022-08-15] MEDS: Insulin Glargine,Human Rec. Analog 100 Units/ML 3 ML Pen SUBCUT SCH (20:44)
[2022-08-15] MEDS: Melatonin 3 MG Tab PO SCH (20:47)
[2022-08-15] MEDS: atorvaSTATin 20 MG Tab PO SCH (20:47)
[2022-08-15] MEDS: NS + KCl 20mEq/L 1,000 ML IV SCH (22:26)
[2022-08-16] MEDS: LORazepam 2 MG/ML SDV IV SCH ×8 (00:44→22:01)
[2022-08-16] MEDS: Diltiazem 100 MG in Sodium Chloride 0.9% 100 ML IV SCH ×3 (01:18→14:48)
[2022-08-16] MEDS: Haloperidol Lactate 5 MG/ML SDV IVPUSH PRN ×4 (02:01→17:35)
[2022-08-16] MEDS: Metoprolol Tartrate 5 MG/5 ML SDV IVPUSH SCH ×6 (03:08→23:15)
[2022-08-16] MEDS: Insulin Lispro 100 Unit/ML 3 ML KwikPen SUBCUT SCH ×4 (07:32→20:41)
[2022-08-16] MEDS: Pantoprazole 40 MG Tab.CR PO SCH (08:22)
[2022-08-16] MEDS: Tamsulosin 0.4 MG Cap.ER PO SCH (08:46)
[2022-08-16] MEDS: Folic Acid 1 MG Tab PO SCH (08:47)
[2022-08-16] MEDS: amLODIPine 5 MG Tab PO SCH (08:47)
[2022-08-16] MEDS: Gabapentin 400 MG Cap PO SCH (08:47)
[2022-08-16] MEDS: Thiamine 100 MG Tab PO SCH (08:47)
[2022-08-16] MEDS: Hydrochlorothiazide 25 MG Tab PO SCH (08:47)
[2022-08-16] MEDS: Sertraline 50 MG Tab PO SCH (08:47)
[2022-08-16] MEDS: Potassium Chloride 10 MEQ in Premix Bag 1 BAG IV SCH ×4 (09:00→12:04)
[2022-08-16] MEDS: Enoxaparin 40 MG/0.4 ML Syringe SUBCUT SCH (11:11)
[2022-08-16] MEDS: NS + KCl 20mEq/L 1,000 ML IV SCH (17:34)
[2022-08-16] MEDS: Insulin Glargine,Human Rec. Analog 100 Units/ML 3 ML Pen SUBCUT SCH (20:42)
[2022-08-16] MEDS: Melatonin 3 MG Tab PO SCH (20:43)
[2022-08-17] MEDS: LORazepam 2 MG/ML SDV IV SCH ×5 (00:24→20:32)
[2022-08-17] MEDS: Haloperidol Lactate 5 MG/ML SDV IVPUSH PRN ×3 (01:09→21:38)
[2022-08-17] MEDS: Metoprolol Tartrate 5 MG/5 ML SDV IVPUSH SCH ×6 (03:18→23:01)
[2022-08-17 05:42] LABS: ESTIMATED GFR 79 mL/min (>60)
[2022-08-17] MEDS: Zinc Oxide 20% Oint 56.7 GM Tube TOP PRN (05:53)
[2022-08-17] MEDS: Insulin Lispro 100 Unit/ML 3 ML KwikPen SUBCUT SCH ×4 (08:22→20:53)
[2022-08-17] MEDS: Potassium Chloride 10 MEQ in Premix Bag 1 BAG IV SCH ×4 (09:14→12:22)
[2022-08-17] MEDS: LORazepam 1 MG Tab PO SCH (10:19)
[2022-08-17] MEDS: Enoxaparin 40 MG/0.4 ML Syringe SUBCUT SCH (11:13)
[2022-08-17] MEDS: NS + KCl 20mEq/L 1,000 ML IV SCH (13:34)
[2022-08-17] MEDS: Melatonin 3 MG Tab PO SCH (20:28)
[2022-08-17] MEDS: atorvaSTATin 20 MG Tab PO SCH (20:28)
[2022-08-17] MEDS: Insulin Glargine,Human Rec. Analog 100 Units/ML 3 ML Pen SUBCUT SCH (20:54)
[2022-08-18] MEDS: LORazepam 2 MG/ML SDV IV SCH ×4 (00:42→21:22)
[2022-08-18] MEDS: Haloperidol Lactate 5 MG/ML SDV IVPUSH PRN ×2 (02:26→19:27)
[2022-08-18] MEDS: Metoprolol Tartrate 5 MG/5 ML SDV IVPUSH SCH ×4 (02:30→14:20)
[2022-08-18] MEDS: Insulin Lispro 100 Unit/ML 3 ML KwikPen SUBCUT SCH ×4 (07:21→21:20)
[2022-08-18] MEDS: Pantoprazole 40 MG Tab.CR PO SCH ×2 (07:45→10:23)
[2022-08-18] MEDS: amLODIPine 5 MG Tab PO SCH (08:45)
[2022-08-18] MEDS: Magnesium Sulfate/Water 2 GM in Premix Bag 1 BAG IV SCH ×3 (08:46→21:24)
[2022-08-18] MEDS: Sertraline 50 MG Tab PO SCH (10:22)
[2022-08-18] MEDS: Magnesium Oxide 400 MG Tab PO SCH ×2 (10:22→20:55)
[2022-08-18] MEDS: Tamsulosin 0.4 MG Cap.ER PO SCH (10:22)
[2022-08-18] MEDS: Hydrochlorothiazide 25 MG Tab PO SCH (10:22)
[2022-08-18] MEDS: Thiamine 100 MG Tab PO SCH (10:23)
[2022-08-18] MEDS: Folic Acid 1 MG Tab PO SCH (10:23)
[2022-08-18] MEDS: LORazepam 1 MG Tab PO SCH (10:57)
[2022-08-18] MEDS: Enoxaparin 40 MG/0.4 ML Syringe SUBCUT SCH (10:57)
[2022-08-18] MEDS: NS + KCl 20mEq/L 1,000 ML IV SCH (11:07)
[2022-08-18] MEDS ORDERED: Metoprolol Succinate 50 MG Tab.ER PO ONE (14:30)
[2022-08-18] MEDS: Melatonin 3 MG Tab PO SCH (20:55)
[2022-08-18] MEDS: atorvaSTATin 20 MG Tab PO SCH (20:55)
[2022-08-18] MEDS: Insulin Glargine,Human Rec. Analog 100 Units/ML 3 ML Pen SUBCUT SCH (21:21)
[2022-08-18] MEDS: Metoprolol Tartrate 5 MG/5 ML SDV IVPUSH PRN (23:14)
[2022-08-18] MEDS: Metoprolol Succinate 50 MG Tab.ER PO SCH (23:17)
[2022-08-19] MEDS: Haloperidol Lactate 5 MG/ML SDV IVPUSH PRN (02:05)
[2022-08-19] MEDS: Metoprolol Tartrate 5 MG/5 ML SDV IVPUSH PRN (03:58)
[2022-08-19] MEDS: LORazepam 2 MG/ML SDV IV SCH (04:00)
[2022-08-19] MEDS: NS + KCl 20mEq/L 1,000 ML IV SCH (06:12)
[2022-08-19] MEDS: Insulin Lispro 100 Unit/ML 3 ML KwikPen SUBCUT SCH ×4 (07:06→20:37)
[2022-08-19] MEDS: Metoprolol Succinate 50 MG Tab.ER PO SCH ×2 (08:19→20:34)
[2022-08-19] MEDS: amLODIPine 5 MG Tab PO SCH (08:19)
[2022-08-19] MEDS: Hydrochlorothiazide 25 MG Tab PO SCH (08:20)
[2022-08-19] MEDS: Sertraline 50 MG Tab PO SCH (08:20)
[2022-08-19] MEDS: Pantoprazole 40 MG Tab.CR PO SCH (08:25)
[2022-08-19] MEDS: Magnesium Oxide 400 MG Tab PO SCH ×2 (08:25→20:35)
[2022-08-19] MEDS: Folic Acid 1 MG Tab PO SCH (08:25)
[2022-08-19] MEDS: Tamsulosin 0.4 MG Cap.ER PO SCH (08:25)
[2022-08-19] MEDS: Thiamine 100 MG Tab PO SCH (08:25)
[2022-08-19] MEDS: Enoxaparin 40 MG/0.4 ML Syringe SUBCUT SCH (11:05)
[2022-08-19] MEDS: Rivaroxaban 10 MG Tab PO SCH (17:08)
[2022-08-19] MEDS: Melatonin 3 MG Tab PO SCH (20:34)
[2022-08-19] MEDS: atorvaSTATin 20 MG Tab PO SCH (20:35)
[2022-08-19] MEDS: Insulin Glargine,Human Rec. Analog 100 Units/ML 3 ML Pen SUBCUT SCH (20:38)
[2022-08-20] MEDS: NS + KCl 20mEq/L 1,000 ML IV SCH (01:20)
[2022-08-20] MEDS: Haloperidol Lactate 5 MG/ML SDV IVPUSH PRN (02:23)
[2022-08-20] MEDS: Insulin Lispro 100 Unit/ML 3 ML KwikPen SUBCUT SCH ×4 (07:45→20:56)
[2022-08-20] MEDS: Pantoprazole 40 MG Tab.CR PO SCH (07:57)
[2022-08-20] MEDS: Magnesium Oxide 400 MG Tab PO SCH ×2 (10:04→20:01)
[2022-08-20] MEDS: Metoprolol Succinate 50 MG Tab.ER PO SCH ×2 (10:04→21:02)
[2022-08-20] MEDS: amLODIPine 5 MG Tab PO SCH (10:08)
[2022-08-20] MEDS: Sertraline 50 MG Tab PO SCH (10:09)
[2022-08-20] MEDS: Thiamine 100 MG Tab PO SCH (10:09)
[2022-08-20] MEDS: Hydrochlorothiazide 25 MG Tab PO SCH (10:09)
[2022-08-20] MEDS: Folic Acid 1 MG Tab PO SCH (10:12)
[2022-08-20] MEDS: Tamsulosin 0.4 MG Cap.ER PO SCH (10:12)
[2022-08-20] MEDS: Rivaroxaban 10 MG Tab PO SCH (16:17)
[2022-08-20] MEDS: atorvaSTATin 20 MG Tab PO SCH (20:00)
[2022-08-20] MEDS: Melatonin 3 MG Tab PO SCH (20:00)
[2022-08-20] MEDS: Insulin Glargine,Human Rec. Analog 100 Units/ML 3 ML Pen SUBCUT SCH (20:55)
[2022-08-21 05:18] LABS: ESTIMATED GFR 53 mL/min (>60)
[2022-08-21] MEDS: Insulin Lispro 100 Unit/ML 3 ML KwikPen SUBCUT SCH ×4 (07:58→20:34)
[2022-08-21] MEDS: Pantoprazole 40 MG Tab.CR PO SCH (08:05)
[2022-08-21] MEDS: Hydrochlorothiazide 25 MG Tab PO SCH (08:13)
[2022-08-21] MEDS: Tamsulosin 0.4 MG Cap.ER PO SCH (08:13)
[2022-08-21] MEDS: Folic Acid 1 MG Tab PO SCH (08:13)
[2022-08-21] MEDS: amLODIPine 5 MG Tab PO SCH (08:14)
[2022-08-21] MEDS: Magnesium Oxide 400 MG Tab PO SCH ×2 (08:14→20:28)
[2022-08-21] MEDS: Metoprolol Succinate 50 MG Tab.ER PO SCH ×2 (08:15→20:28)
[2022-08-21] MEDS: Thiamine 100 MG Tab PO SCH (08:16)
[2022-08-21] MEDS: Sertraline 50 MG Tab PO SCH (08:20)
[2022-08-21] MEDS ORDERED: Potassium Chloride 20 MEQ Tab.ER PO ONE ×2 (08:30→16:00)
[2022-08-21] MEDS: Rivaroxaban 10 MG Tab PO SCH (16:26)
[2022-08-21] MEDS: Loperamide 2 MG Cap PO PRN ×2 (17:21→21:40)
[2022-08-21] MEDS: Melatonin 3 MG Tab PO SCH (20:28)
[2022-08-21] MEDS: atorvaSTATin 20 MG Tab PO SCH (20:28)
[2022-08-21] MEDS: Insulin Glargine,Human Rec. Analog 100 Units/ML 3 ML Pen SUBCUT SCH (20:34)
[2022-08-21] MEDS: Acetaminophen 325 MG Tab PO PRN (20:36)
[2022-08-22] MEDS: Acetaminophen 325 MG Tab PO PRN (03:21)
[2022-08-22 04:47] LABS: ESTIMATED GFR 58 mL/min (>60)
[2022-08-22] MEDS: Insulin Lispro 100 Unit/ML 3 ML KwikPen SUBCUT SCH ×4 (08:08→21:15)
[2022-08-22] MEDS: Pantoprazole 40 MG Tab.CR PO SCH (08:14)
[2022-08-22] MEDS: Folic Acid 1 MG Tab PO SCH (08:15)
[2022-08-22] MEDS: Tamsulosin 0.4 MG Cap.ER PO SCH (08:15)
[2022-08-22] MEDS: Hydrochlorothiazide 25 MG Tab PO SCH (08:15)
[2022-08-22] MEDS: Magnesium Oxide 400 MG Tab PO SCH ×2 (08:16→21:13)
[2022-08-22] MEDS: amLODIPine 5 MG Tab PO SCH (08:16)
[2022-08-22] MEDS: Metoprolol Succinate 50 MG Tab.ER PO SCH ×2 (08:18→21:10)
[2022-08-22] MEDS: Thiamine 100 MG Tab PO SCH (08:18)
[2022-08-22] MEDS: Sertraline 50 MG Tab PO SCH (08:18)
[2022-08-22] MEDS: Potassium Chloride 20 MEQ Tab.ER PO SCH (08:19)
[2022-08-22] MEDS ORDERED: Phytonadione 5 MG Tab PO ONE (08:30)
[2022-08-22] MEDS: Loperamide 2 MG Cap PO PRN ×2 (08:46→17:32)
[2022-08-22] MEDS: prednisoLONE 15 MG/5 ML Soln UD Cup PO SCH (14:57)
[2022-08-22] MEDS: Rivaroxaban 10 MG Tab PO SCH (17:30)
[2022-08-22] MEDS: Melatonin 3 MG Tab PO SCH (21:13)
[2022-08-22] MEDS: atorvaSTATin 20 MG Tab PO SCH (21:13)
[2022-08-22] MEDS: Insulin Glargine,Human Rec. Analog 100 Units/ML 3 ML Pen SUBCUT SCH (21:15)
[2022-08-23] MEDS: Haloperidol Lactate 5 MG/ML SDV IVPUSH PRN ×2 (00:23→20:47)
[2022-08-23] MEDS: Pantoprazole 40 MG Tab.CR PO SCH (07:30)
[2022-08-23] MEDS: Insulin Lispro 100 Unit/ML 3 ML KwikPen SUBCUT SCH ×4 (09:55→21:11)
[2022-08-23] MEDS: Metoprolol Succinate 50 MG Tab.ER PO SCH ×2 (10:02→20:48)
[2022-08-23] MEDS: Sertraline 50 MG Tab PO SCH (10:05)
[2022-08-23] MEDS: prednisoLONE 15 MG/5 ML Soln UD Cup PO SCH (10:05)
[2022-08-23] MEDS: amLODIPine 5 MG Tab PO SCH (10:05)
[2022-08-23] MEDS: Thiamine 100 MG Tab PO SCH (10:06)
[2022-08-23] MEDS: Magnesium Oxide 400 MG Tab PO SCH ×2 (10:06→20:49)
[2022-08-23] MEDS: Hydrochlorothiazide 25 MG Tab PO SCH (10:07)
[2022-08-23] MEDS: Tamsulosin 0.4 MG Cap.ER PO SCH (10:07)
[2022-08-23] MEDS: Folic Acid 1 MG Tab PO SCH (10:07)
[2022-08-23] MEDS: Potassium Chloride 20 MEQ Tab.ER PO SCH (10:07)
[2022-08-23] MEDS ORDERED: Phytonadione 5 MG Tab PO ONE (11:00)
[2022-08-23] MEDS: Loperamide 2 MG Cap PO PRN ×2 (12:17→17:33)
[2022-08-23] MEDS: Rivaroxaban 10 MG Tab PO SCH (16:21)
[2022-08-23] MEDS: atorvaSTATin 20 MG Tab PO SCH (20:47)
[2022-08-23] MEDS: glipiZIDE 5 MG Tab PO SCH (20:49)
[2022-08-23] MEDS: Melatonin 3 MG Tab PO SCH (20:49)
[2022-08-23] MEDS: Insulin Glargine,Human Rec. Analog 100 Units/ML 3 ML Pen SUBCUT SCH (21:11)
[2022-08-24 05:07] LABS: ESTIMATED GFR 45 mL/min (>60)
[2022-08-24] MEDS: Insulin Lispro 100 Unit/ML 3 ML KwikPen SUBCUT SCH ×4 (07:30→21:11)
[2022-08-24] MEDS: Pantoprazole 40 MG Tab.CR PO SCH (07:31)
[2022-08-24] MEDS: Loperamide 2 MG Cap PO PRN (07:31)
[2022-08-24] MEDS ORDERED: Potassium Chloride 20 MEQ Tab.ER PO ONE (08:14)
[2022-08-24] MEDS: Magnesium Oxide 400 MG Tab PO SCH ×2 (09:02→20:59)
[2022-08-24] MEDS: Metoprolol Succinate 50 MG Tab.ER PO SCH ×2 (09:03→20:59)
[2022-08-24] MEDS: Hydrochlorothiazide 25 MG Tab PO SCH (09:03)
[2022-08-24] MEDS: amLODIPine 5 MG Tab PO SCH (09:04)
[2022-08-24] MEDS: glipiZIDE 5 MG Tab PO SCH ×2 (09:06→20:58)
[2022-08-24] MEDS: Tamsulosin 0.4 MG Cap.ER PO SCH (09:06)
[2022-08-24] MEDS: prednisoLONE 15 MG/5 ML Soln UD Cup PO SCH (09:07)
[2022-08-24] MEDS: Folic Acid 1 MG Tab PO SCH (09:07)
[2022-08-24] MEDS: Thiamine 100 MG Tab PO SCH (09:07)
[2022-08-24] MEDS: Potassium Chloride 20 MEQ Tab.ER PO SCH (09:09)
[2022-08-24] MEDS: Sertraline 50 MG Tab PO SCH (09:18)
[2022-08-24] MEDS: Rivaroxaban 15 MG Tab PO SCH (17:28)
[2022-08-24] MEDS: atorvaSTATin 20 MG Tab PO SCH (20:59)
[2022-08-24] MEDS: Melatonin 3 MG Tab PO SCH (21:00)
[2022-08-24] MEDS: Haloperidol Lactate 5 MG/ML SDV IVPUSH PRN (21:05)
[2022-08-24] MEDS: Insulin Glargine,Human Rec. Analog 100 Units/ML 3 ML Pen SUBCUT SCH (21:12)
[2022-08-25] MEDS: Insulin Lispro 100 Unit/ML 3 ML KwikPen SUBCUT SCH ×4 (08:11→21:14)
[2022-08-25] MEDS: Tamsulosin 0.4 MG Cap.ER PO SCH (08:58)
[2022-08-25] MEDS: Pantoprazole 40 MG Tab.CR PO SCH (08:58)
[2022-08-25] MEDS: Metoprolol Succinate 50 MG Tab.ER PO SCH ×2 (08:58→21:12)
[2022-08-25] MEDS: Hydrochlorothiazide 25 MG Tab PO SCH (08:58)
[2022-08-25] MEDS: amLODIPine 5 MG Tab PO SCH (08:59)
[2022-08-25] MEDS: Sertraline 50 MG Tab PO SCH (08:59)
[2022-08-25] MEDS: Potassium Chloride 20 MEQ Tab.ER PO SCH ×2 (08:59→21:11)
[2022-08-25] MEDS: glipiZIDE 5 MG Tab PO SCH ×2 (08:59→21:12)
[2022-08-25] MEDS: Magnesium Oxide 400 MG Tab PO SCH ×2 (08:59→21:12)
[2022-08-25] MEDS: Folic Acid 1 MG Tab PO SCH (08:59)
[2022-08-25] MEDS: Thiamine 100 MG Tab PO SCH (09:00)
[2022-08-25] MEDS: Loperamide 2 MG Cap PO PRN ×2 (10:49→17:31)
[2022-08-25] MEDS: Rivaroxaban 15 MG Tab PO SCH (17:31)
[2022-08-25] MEDS: Melatonin 3 MG Tab PO SCH (21:11)
[2022-08-25] MEDS: atorvaSTATin 20 MG Tab PO SCH (21:12)
[2022-08-25] MEDS: Insulin Glargine,Human Rec. Analog 100 Units/ML 3 ML Pen SUBCUT SCH (21:13)
[2022-08-26] MEDS: Loperamide 2 MG Cap PO PRN ×2 (00:39→11:05)
[2022-08-26] MEDS: Haloperidol Lactate 5 MG/ML SDV IVPUSH PRN (00:39)
[2022-08-26] MEDS: Pantoprazole 40 MG Tab.CR PO SCH (07:43)
[2022-08-26] MEDS: Acetaminophen 325 MG Tab PO PRN (07:49)
[2022-08-26] MEDS: Insulin Lispro 100 Unit/ML 3 ML KwikPen SUBCUT SCH ×4 (07:50→21:24)
[2022-08-26] MEDS: Thiamine 100 MG Tab PO SCH (08:29)
[2022-08-26] MEDS: Magnesium Oxide 400 MG Tab PO SCH ×2 (08:29→21:27)
[2022-08-26] MEDS: Metoprolol Succinate 50 MG Tab.ER PO SCH ×2 (08:29→21:27)
[2022-08-26] MEDS: glipiZIDE 5 MG Tab PO SCH ×2 (08:29→21:26)
[2022-08-26] MEDS: Sertraline 50 MG Tab PO SCH (08:29)
[2022-08-26] MEDS: Potassium Chloride 20 MEQ Tab.ER PO SCH ×2 (08:30→21:26)
[2022-08-26] MEDS: amLODIPine 5 MG Tab PO SCH (08:30)
[2022-08-26] MEDS: Hydrochlorothiazide 25 MG Tab PO SCH (08:30)
[2022-08-26] MEDS: Folic Acid 1 MG Tab PO SCH (08:31)
[2022-08-26] MEDS: Tamsulosin 0.4 MG Cap.ER PO SCH (08:31)
[2022-08-26] MEDS ORDERED: Ketorolac 30 MG/ML SDV IVPUSH ONE (11:40)
[2022-08-26] MEDS: Rivaroxaban 15 MG Tab PO SCH (18:51)
[2022-08-26] MEDS: Insulin Glargine,Human Rec. Analog 100 Units/ML 3 ML Pen SUBCUT SCH (21:23)
[2022-08-26] MEDS: atorvaSTATin 20 MG Tab PO SCH (21:26)
[2022-08-26] MEDS: Melatonin 3 MG Tab PO SCH (21:27)
[2022-08-26] MEDS: traZODone 50 MG Tab PO SCH (21:29)
[2022-08-27] MEDS: Acetaminophen 325 MG Tab PO PRN (02:43)
[2022-08-27 05:27] LABS: ESTIMATED GFR 42 mL/min (>60)
[2022-08-27] MEDS: Insulin Lispro 100 Unit/ML 3 ML KwikPen SUBCUT SCH ×4 (07:29→21:01)
[2022-08-27] MEDS: glipiZIDE 5 MG Tab PO SCH ×2 (08:09→21:06)
[2022-08-27] MEDS: Tamsulosin 0.4 MG Cap.ER PO SCH (08:09)
[2022-08-27] MEDS: Pantoprazole 40 MG Tab.CR PO SCH (08:09)
[2022-08-27] MEDS: Potassium Chloride 20 MEQ Tab.ER PO SCH ×2 (08:09→21:06)
[2022-08-27] MEDS: Folic Acid 1 MG Tab PO SCH (08:09)
[2022-08-27] MEDS: Hydrochlorothiazide 25 MG Tab PO SCH (08:09)
[2022-08-27] MEDS: Sertraline 50 MG Tab PO SCH (08:10)
[2022-08-27] MEDS: Thiamine 100 MG Tab PO SCH (08:10)
[2022-08-27] MEDS: Magnesium Oxide 400 MG Tab PO SCH ×2 (08:10→21:07)
[2022-08-27] MEDS: Metoprolol Succinate 50 MG Tab.ER PO SCH ×2 (08:10→21:06)
[2022-08-27] MEDS: amLODIPine 5 MG Tab PO SCH (08:10)
[2022-08-27] MEDS: Gabapentin 100 MG Cap PO SCH ×2 (11:04→21:07)
[2022-08-27] MEDS: Loperamide 2 MG Cap PO PRN (13:12)
[2022-08-27] MEDS: Rivaroxaban 15 MG Tab PO SCH (17:25)
[2022-08-27] MEDS: Insulin Glargine,Human Rec. Analog 100 Units/ML 3 ML Pen SUBCUT SCH (21:02)
[2022-08-27] MEDS: Melatonin 3 MG Tab PO SCH (21:06)
[2022-08-27] MEDS: atorvaSTATin 20 MG Tab PO SCH (21:07)
[2022-08-27] MEDS: traZODone 50 MG Tab PO SCH (21:07)
[2022-08-28] MEDS: Pantoprazole 40 MG Tab.CR PO SCH (07:28)
[2022-08-28] MEDS: Insulin Lispro 100 Unit/ML 3 ML KwikPen SUBCUT SCH ×4 (07:54→21:59)
[2022-08-28] MEDS: Folic Acid 1 MG Tab PO SCH (08:08)
[2022-08-28] MEDS: glipiZIDE 5 MG Tab PO SCH ×2 (08:08→21:54)
[2022-08-28] MEDS: Tamsulosin 0.4 MG Cap.ER PO SCH (08:08)
[2022-08-28] MEDS: Thiamine 100 MG Tab PO SCH (08:09)
[2022-08-28] MEDS: Magnesium Oxide 400 MG Tab PO SCH ×2 (08:09→21:54)
[2022-08-28] MEDS: Hydrochlorothiazide 25 MG Tab PO SCH (08:09)
[2022-08-28] MEDS: Metoprolol Succinate 50 MG Tab.ER PO SCH ×2 (08:09→21:55)
[2022-08-28] MEDS: Sertraline 50 MG Tab PO SCH (08:09)
[2022-08-28] MEDS: amLODIPine 5 MG Tab PO SCH (08:09)
[2022-08-28] MEDS: Gabapentin 100 MG Cap PO SCH (08:09)
[2022-08-28] MEDS: Potassium Chloride 20 MEQ Tab.ER PO SCH ×2 (08:09→21:54)
[2022-08-28] MEDS: Loperamide 2 MG Cap PO PRN (08:14)
[2022-08-28] MEDS: Rivaroxaban 15 MG Tab PO SCH (16:59)
[2022-08-28] MEDS: atorvaSTATin 20 MG Tab PO SCH (21:53)
[2022-08-28] MEDS: Gabapentin 300 MG Cap PO SCH (21:54)
[2022-08-28] MEDS: Melatonin 3 MG Tab PO SCH (21:54)
[2022-08-28] MEDS: traZODone 50 MG Tab PO SCH (21:55)
[2022-08-28] MEDS: Insulin Glargine,Human Rec. Analog 100 Units/ML 3 ML Pen SUBCUT SCH (21:59)
[2022-08-29 06:00] LABS: ESTIMATED GFR 49 mL/min (>60)
[2022-08-29] MEDS: Pantoprazole 40 MG Tab.CR PO SCH (07:11)
[2022-08-29] MEDS: Insulin Lispro 100 Unit/ML 3 ML KwikPen SUBCUT SCH ×4 (07:55→21:38)
[2022-08-29] MEDS: amLODIPine 5 MG Tab PO SCH (09:05)
[2022-08-29] MEDS: Gabapentin 300 MG Cap PO SCH ×2 (09:05→21:35)
[2022-08-29] MEDS: Magnesium Oxide 400 MG Tab PO SCH ×2 (09:06→21:33)
[2022-08-29] MEDS: Sertraline 50 MG Tab PO SCH (09:06)
[2022-08-29] MEDS: Hydrochlorothiazide 25 MG Tab PO SCH (09:06)
[2022-08-29] MEDS: Thiamine 100 MG Tab PO SCH (09:06)
[2022-08-29] MEDS: Potassium Chloride 20 MEQ Tab.ER PO SCH ×2 (09:06→21:32)
[2022-08-29] MEDS: Tamsulosin 0.4 MG Cap.ER PO SCH (09:06)
[2022-08-29] MEDS: Metoprolol Succinate 50 MG Tab.ER PO SCH ×2 (09:06→21:35)
[2022-08-29] MEDS: Folic Acid 1 MG Tab PO SCH (09:07)
[2022-08-29] MEDS: glipiZIDE 5 MG Tab PO SCH ×2 (09:07→21:34)
[2022-08-29] MEDS: Rivaroxaban 15 MG Tab PO SCH (16:45)
[2022-08-29] MEDS: traZODone 50 MG Tab PO SCH (21:32)
[2022-08-29] MEDS: atorvaSTATin 20 MG Tab PO SCH (21:33)
[2022-08-29] MEDS: Melatonin 3 MG Tab PO SCH (21:33)
[2022-08-29] MEDS: Loperamide 2 MG Cap PO PRN (21:33)
[2022-08-29] MEDS: Insulin Glargine,Human Rec. Analog 100 Units/ML 3 ML Pen SUBCUT SCH (21:39)
[2022-08-30] MEDS: Insulin Lispro 100 Unit/ML 3 ML KwikPen SUBCUT SCH ×4 (07:21→21:21)
[2022-08-30] MEDS: Pantoprazole 40 MG Tab.CR PO SCH (07:21)
[2022-08-30] MEDS: Loperamide 2 MG Cap PO PRN ×3 (07:26→16:42)
[2022-08-30] MEDS: glipiZIDE 5 MG Tab PO SCH ×2 (08:50→21:19)
[2022-08-30] MEDS: Tamsulosin 0.4 MG Cap.ER PO SCH (08:50)
[2022-08-30] MEDS: Magnesium Oxide 400 MG Tab PO SCH ×2 (08:50→21:18)
[2022-08-30] MEDS: Thiamine 100 MG Tab PO SCH (08:50)
[2022-08-30] MEDS: Folic Acid 1 MG Tab PO SCH (08:50)
[2022-08-30] MEDS: Metoprolol Succinate 50 MG Tab.ER PO SCH ×2 (08:50→21:19)
[2022-08-30] MEDS: Potassium Chloride 20 MEQ Tab.ER PO SCH ×2 (08:50→21:18)
[2022-08-30] MEDS: Hydrochlorothiazide 25 MG Tab PO SCH (08:50)
[2022-08-30] MEDS: Gabapentin 300 MG Cap PO SCH ×2 (08:50→21:18)
[2022-08-30] MEDS: amLODIPine 5 MG Tab PO SCH (08:51)
[2022-08-30] MEDS: Sertraline 50 MG Tab PO SCH (08:51)
[2022-08-30] MEDS: Rivaroxaban 15 MG Tab PO SCH (16:42)
[2022-08-30] MEDS: LORazepam 0.5 MG Tab PO PRN (18:27)
[2022-08-30] MEDS: traZODone 50 MG Tab PO SCH (21:18)
[2022-08-30] MEDS: Melatonin 3 MG Tab PO SCH (21:18)
[2022-08-30] MEDS: atorvaSTATin 20 MG Tab PO SCH (21:18)
[2022-08-30] MEDS: Insulin Glargine,Human Rec. Analog 100 Units/ML 3 ML Pen SUBCUT SCH (21:21)
[2022-08-31] MEDS: Insulin Lispro 100 Unit/ML 3 ML KwikPen SUBCUT SCH ×4 (07:29→21:41)
[2022-08-31] MEDS: Pantoprazole 40 MG Tab.CR PO SCH (07:45)
[2022-08-31] MEDS: Loperamide 2 MG Cap PO PRN (07:48)
[2022-08-31] MEDS: Metoprolol Succinate 50 MG Tab.ER PO SCH ×2 (09:32→21:37)
[2022-08-31] MEDS: Magnesium Oxide 400 MG Tab PO SCH ×2 (09:32→21:38)
[2022-08-31] MEDS: Tamsulosin 0.4 MG Cap.ER PO SCH (09:32)
[2022-08-31] MEDS: amLODIPine 5 MG Tab PO SCH (09:32)
[2022-08-31] MEDS: Potassium Chloride 20 MEQ Tab.ER PO SCH ×2 (09:33→21:37)
[2022-08-31] MEDS: Gabapentin 300 MG Cap PO SCH ×2 (09:33→21:38)
[2022-08-31] MEDS: Hydrochlorothiazide 25 MG Tab PO SCH (09:33)
[2022-08-31] MEDS: glipiZIDE 5 MG Tab PO SCH ×2 (09:33→21:37)
[2022-08-31] MEDS: Thiamine 100 MG Tab PO SCH (09:33)
[2022-08-31] MEDS: Folic Acid 1 MG Tab PO SCH (09:33)
[2022-08-31] MEDS: Sertraline 50 MG Tab PO SCH (09:33)
[2022-08-31] MEDS: LORazepam 0.5 MG Tab PO PRN (09:38)
[2022-08-31] MEDS: Rivaroxaban 15 MG Tab PO SCH (16:53)
[2022-08-31] MEDS: Melatonin 3 MG Tab PO SCH (21:38)
[2022-08-31] MEDS: atorvaSTATin 20 MG Tab PO SCH (21:38)
[2022-08-31] MEDS: Insulin Glargine,Human Rec. Analog 100 Units/ML 3 ML Pen SUBCUT SCH (21:39)
[2022-08-31] MEDS: traZODone 50 MG Tab PO SCH (21:39)
[2022-09-01] MEDS: Insulin Lispro 100 Unit/ML 3 ML KwikPen SUBCUT SCH ×4 (09:07→21:52)
[2022-09-01] MEDS: Pantoprazole 40 MG Tab.CR PO SCH (09:13)
[2022-09-01] MEDS: Folic Acid 1 MG Tab PO SCH (09:14)
[2022-09-01] MEDS: Tamsulosin 0.4 MG Cap.ER PO SCH (09:14)
[2022-09-01] MEDS: glipiZIDE 5 MG Tab PO SCH ×2 (09:14→21:50)
[2022-09-01] MEDS: Hydrochlorothiazide 25 MG Tab PO SCH (09:15)
[2022-09-01] MEDS: Potassium Chloride 20 MEQ Tab.ER PO SCH ×2 (09:17→21:46)
[2022-09-01] MEDS: Gabapentin 300 MG Cap PO SCH ×2 (09:18→21:48)
[2022-09-01] MEDS: amLODIPine 5 MG Tab PO SCH (09:18)
[2022-09-01] MEDS: Metoprolol Succinate 50 MG Tab.ER PO SCH ×2 (09:23→21:48)
[2022-09-01] MEDS: Magnesium Oxide 400 MG Tab PO SCH ×2 (09:25→21:48)
[2022-09-01] MEDS: Thiamine 100 MG Tab PO SCH (09:25)
[2022-09-01] MEDS: Sertraline 50 MG Tab PO SCH (09:25)
[2022-09-01] MEDS: Loperamide 2 MG Cap PO PRN ×2 (11:19→22:00)
[2022-09-01] MEDS: Rivaroxaban 15 MG Tab PO SCH (17:10)
[2022-09-01] MEDS: LORazepam 0.5 MG Tab PO PRN (21:45)
[2022-09-01] MEDS: atorvaSTATin 20 MG Tab PO SCH (21:47)
[2022-09-01] MEDS: Melatonin 3 MG Tab PO SCH (21:47)
[2022-09-01] MEDS: traZODone 50 MG Tab PO SCH (21:47)
[2022-09-01] MEDS: Insulin Glargine,Human Rec. Analog 100 Units/ML 3 ML Pen SUBCUT SCH (21:54)
[2022-09-02 05:19] LABS: ESTIMATED GFR 49 mL/min (>60)
[2022-09-02] MEDS: LORazepam 0.5 MG Tab PO PRN (05:39)
[2022-09-02] MEDS: Insulin Lispro 100 Unit/ML 3 ML KwikPen SUBCUT SCH ×4 (07:25→21:03)
[2022-09-02] MEDS: Pantoprazole 40 MG Tab.CR PO SCH (08:22)
[2022-09-02] MEDS: Tamsulosin 0.4 MG Cap.ER PO SCH (08:22)
[2022-09-02] MEDS: Folic Acid 1 MG Tab PO SCH (08:22)
[2022-09-02] MEDS: glipiZIDE 5 MG Tab PO SCH ×2 (08:22→20:59)
[2022-09-02] MEDS: Magnesium Oxide 400 MG Tab PO SCH ×2 (08:24→20:53)
[2022-09-02] MEDS: amLODIPine 5 MG Tab PO SCH (08:24)
[2022-09-02] MEDS: Potassium Chloride 20 MEQ Tab.ER PO SCH ×2 (08:24→20:53)
[2022-09-02] MEDS: Gabapentin 300 MG Cap PO SCH ×2 (08:24→20:54)
[2022-09-02] MEDS: Hydrochlorothiazide 25 MG Tab PO SCH (08:24)
[2022-09-02] MEDS: Metoprolol Succinate 50 MG Tab.ER PO SCH ×2 (08:25→20:53)
[2022-09-02] MEDS: Thiamine 100 MG Tab PO SCH (08:26)
[2022-09-02] MEDS: Sertraline 50 MG Tab PO SCH (08:26)
[2022-09-02] MEDS: Rivaroxaban 15 MG Tab PO SCH (18:04)
[2022-09-02] MEDS: traZODone 50 MG Tab PO SCH (20:53)
[2022-09-02] MEDS: atorvaSTATin 20 MG Tab PO SCH (20:54)
[2022-09-02] MEDS: Melatonin 3 MG Tab PO SCH (20:54)
[2022-09-02] MEDS: Insulin Glargine,Human Rec. Analog 100 Units/ML 3 ML Pen SUBCUT SCH (21:02)
[2022-09-03] MEDS: Pantoprazole 40 MG Tab.CR PO SCH (08:23)
[2022-09-03] MEDS: Tamsulosin 0.4 MG Cap.ER PO SCH (08:24)
[2022-09-03] MEDS: Magnesium Oxide 400 MG Tab PO SCH (08:25)
[2022-09-03] MEDS: Thiamine 100 MG Tab PO SCH (08:25)
[2022-09-03] MEDS: Folic Acid 1 MG Tab PO SCH (08:25)
[2022-09-03] MEDS: Sertraline 50 MG Tab PO SCH (08:25)
[2022-09-03] MEDS: Potassium Chloride 20 MEQ Tab.ER PO SCH (08:26)
[2022-09-03] MEDS: Hydrochlorothiazide 25 MG Tab PO SCH (08:26)
[2022-09-03] MEDS: Gabapentin 300 MG Cap PO SCH (08:26)
[2022-09-03] MEDS: glipiZIDE 5 MG Tab PO SCH (08:26)
[2022-09-03] MEDS: amLODIPine 5 MG Tab PO SCH (08:27)
[2022-09-03] MEDS: Metoprolol Succinate 50 MG Tab.ER PO SCH (08:27)
[2022-09-03] MEDS: Insulin Lispro 100 Unit/ML 3 ML KwikPen SUBCUT SCH (08:28)
[2022-09-03] MEDS: Loperamide 2 MG Cap PO PRN (08:34)
[2022-09-03 10:07] VITALS: BP 131/69; PULSE 72
== END 2022-09-03 12:00 | disposition home health service (06) | DRG 897 ==
LOC: JP.ED 13:40 → JP.ICU 18:29
PROVIDERS: ADMIT Internal Medicine; ATTEND Hospitalist
DX: F10.230 Alcohol dependence with withdrawal, uncomplicated (principal); N17.9 Acute kidney failure, unspecified; K50.90 Crohn's disease, unspecified, without complications; F10.229 Alcohol dependence with intoxication, unspecified; E87.6 Hypokalemia; K70.10 Alcoholic hepatitis without ascites; F10.288 Alcohol dependence with other alcohol-induced disorder; I48.0 Paroxysmal atrial fibrillation; I10 Essential (primary) hypertension; Y90.7 Blood alcohol level of 200-239 mg/100 ml; F41.9 Anxiety disorder, unspecified; E66.9 Obesity, unspecified; E11.9 Type 2 diabetes mellitus without complications; Z96.652 Presence of left artificial knee joint; H54.7 Unspecified visual loss; E83.42 Hypomagnesemia; I25.10 Atherosclerotic heart disease of native coronary artery without angina pectoris; E11.40 Type 2 diabetes mellitus with diabetic neuropathy, unspecified; Z88.0 Allergy status to penicillin; Z88.1 Allergy status to other antibiotic agents; Z79.4 Long term (current) use of insulin; Z79.899 Other long term (current) drug therapy; Z85.828 Personal history of other malignant neoplasm of skin; Z90.49 Acquired absence of other specified parts of digestive tract; Z95.5 Presence of coronary angioplasty implant and graft; Z68.27 Body mass index [BMI] 27.0-27.9, adult
CPT/HCPCS: 36415; 80048; 80053; 80307; 82140; 82947; 83735; 84132; 84550; 85025; 85027; 85610; 90662; 96125-GO; 96365; 96366; 96367; 96368; 96375; 96376; 97110-GP; 97116-GP; 97140-GP; 97162-GP; 97165-GO; 97530-GP; 99285-25; A9270-GY; J1170; J1630; J1650; J1815; J1815-GY; J1885; J2060; J2405; J2765; J3360; J3411; J3475; J3480; J3490; J7042; Q0162

== ENCOUNTER 2022-09-21 09:43 | Inpatient (IN) | payer MEDICARE, OTHER ==
[2022-09-21] MEDS ORDERED: LORazepam 2 MG/ML SDV IVPUSH ONE ×2 (10:09→13:19)
[2022-09-21] MEDS ORDERED: Sodium Chloride 0.9% 10 ML Syringe FLUSH PRN (10:09)
[2022-09-21] MEDS ORDERED: MVI, Adult with Vitamin K 10 ML, Thiamine 200 MG, Folic Acid 1 MG, Magnesium Sulfate 2 ... IV ONE ×5 (10:09)
[2022-09-21 10:44] LABS: ESTIMATED GFR 39 mL/min (>60)
[2022-09-21] MEDS ORDERED: Diltiazem 25 MG/5 ML SDV IVPUSH ONE ×3 (13:00→16:47)
[2022-09-21] MEDS: Diltiazem 100 MG in Sodium Chloride 0.9% 100 ML IV SCH ×2 (14:30→20:50)
[2022-09-21] MEDS: Sodium Chloride 0.9% 1,000 ML IV SCH (14:45)
[2022-09-21] MEDS ORDERED: Glucagon,Human Recombinant 1 MG Vial IM PRN (15:42)
[2022-09-21] MEDS ORDERED: Haloperidol 5 MG Tab PO PRN (15:42)
[2022-09-21] MEDS ORDERED: Magnesium Hydroxide 400 MG/5 ML Susp 30 ML Cup PO PRN (15:42)
[2022-09-21] MEDS ORDERED: Ondansetron 4 MG Tab.DIS PO PRN (15:42)
[2022-09-21] MEDS ORDERED: 50% Dextrose in Water 50 ML Syringe IVPUSH PRN (15:42)
[2022-09-21] MEDS ORDERED: Albuterol 0.083% 2.5 MG/3 ML Neb Soln NEB PRN (15:42)
[2022-09-21] MEDS ORDERED: oxyCODONE 5 MG Tab PO PRN (15:42)
[2022-09-21] MEDS ORDERED: Acetaminophen 325 MG Tab PO PRN (15:42)
[2022-09-21] MEDS ORDERED: Ondansetron 4 MG/2 ML SDV IV PRN (15:42)
[2022-09-21] MEDS ORDERED: Diltiazem 25 MG/5 ML SDV ONE (15:45)
[2022-09-21] MEDS: LORazepam 1 MG Tab PO SCH ×2 (16:06→17:12)
[2022-09-21] MEDS: Insulin Lispro 100 Unit/ML 3 ML KwikPen SUBCUT SCH ×2 (17:03→20:37)
[2022-09-21] MEDS: LORazepam 2 MG/ML SDV IV SCH ×3 (18:02→21:02)
[2022-09-21] MEDS ORDERED: diphenhydrAMINE 50 MG/ML SDV IVPUSH ONE (18:15)
[2022-09-21] MEDS: Haloperidol Lactate 5 MG/ML SDV IVPUSH PRN (18:36)
[2022-09-21] MEDS: Metoprolol Tartrate 5 MG/5 ML SDV IVPUSH SCH (19:53)
[2022-09-21] MEDS: Insulin Glargine,Human Rec. Analog 100 Units/ML 3 ML Pen SUBCUT SCH (20:47)
[2022-09-21] MEDS: Enoxaparin 40 MG/0.4 ML Syringe SUBCUT SCH (20:52)
[2022-09-21] MEDS: Pantoprazole 40 MG Vial IVPUSH SCH (20:55)
[2022-09-21] MEDS ORDERED: Melatonin 3 MG Tab PO SCH (21:00)
[2022-09-21] MEDS ORDERED: Gabapentin 400 MG Cap PO SCH (21:00)
[2022-09-21] MEDS ORDERED: Metoprolol Tartrate 50 MG Tab PO SCH (21:00)
[2022-09-21] MEDS ORDERED: atorvaSTATin 20 MG Tab PO SCH (21:00)
[2022-09-22] MEDS: Metoprolol Tartrate 5 MG/5 ML SDV IVPUSH SCH ×4 (01:31→20:37)
[2022-09-22] MEDS: LORazepam 2 MG/ML SDV IV SCH ×8 (03:58→21:25)
[2022-09-22] MEDS: Diltiazem 100 MG in Sodium Chloride 0.9% 100 ML IV SCH ×3 (04:01→21:59)
[2022-09-22] MEDS: Sodium Chloride 0.9% 1,000 ML IV SCH ×2 (05:36→15:51)
[2022-09-22 06:15] LABS: ESTIMATED GFR 53 mL/min (>60)
[2022-09-22] MEDS: Potassium Chloride 10 MEQ in Premix Bag 1 BAG IV SCH ×8 (06:50→20:20)
[2022-09-22] MEDS ORDERED: Pantoprazole 40 MG Tab.CR PO SCH (07:30)
[2022-09-22] MEDS: Insulin Lispro 100 Unit/ML 3 ML KwikPen SUBCUT SCH ×4 (07:56→20:55)
[2022-09-22] MEDS ORDERED: Hydrochlorothiazide 25 MG Tab PO SCH (09:00)
[2022-09-22] MEDS ORDERED: Rivaroxaban 10 MG Tab PO SCH (09:00)
[2022-09-22] MEDS ORDERED: Thiamine 100 MG Tab PO SCH (09:00)
[2022-09-22] MEDS ORDERED: Folic Acid 1 MG Tab PO SCH (09:00)
[2022-09-22] MEDS ORDERED: Sertraline 50 MG Tab PO SCH (09:00)
[2022-09-22] MEDS ORDERED: Tamsulosin 0.4 MG Cap.ER PO SCH (09:00)
[2022-09-22] MEDS ORDERED: amLODIPine 5 MG Tab PO SCH (09:00)
[2022-09-22] MEDS: Haloperidol Lactate 5 MG/ML SDV IVPUSH PRN ×3 (09:35→18:24)
[2022-09-22] MEDS ORDERED: Haloperidol Lactate 5 MG/ML SDV IVPUSH ONE (20:29)
[2022-09-22] MEDS: Pantoprazole 40 MG Vial IVPUSH SCH (20:37)
[2022-09-22] MEDS: Insulin Glargine,Human Rec. Analog 100 Units/ML 3 ML Pen SUBCUT SCH (20:57)
[2022-09-22] MEDS: Enoxaparin 40 MG/0.4 ML Syringe SUBCUT SCH (21:25)
[2022-09-23] MEDS: LORazepam 2 MG/ML SDV IV SCH ×8 (00:04→20:58)
[2022-09-23] MEDS: Haloperidol Lactate 5 MG/ML SDV IVPUSH PRN ×4 (00:45→19:51)
[2022-09-23] MEDS: Metoprolol Tartrate 5 MG/5 ML SDV IVPUSH SCH ×4 (01:41→19:50)
[2022-09-23 05:24] LABS: ESTIMATED GFR 63 mL/min (>60)
[2022-09-23] MEDS: Sodium Chloride 0.9% 1,000 ML IV SCH ×2 (05:41→21:05)
[2022-09-23] MEDS: Insulin Lispro 100 Unit/ML 3 ML KwikPen SUBCUT SCH ×4 (07:53→20:09)
[2022-09-23] MEDS: Diltiazem 100 MG in Sodium Chloride 0.9% 100 ML IV SCH ×2 (08:03→19:49)
[2022-09-23] MEDS: HYDROmorphone 0.5 MG/0.5 ML Syringe IVPUSH PRN ×3 (10:45→21:19)
[2022-09-23] MEDS: Magnesium Sulfate/Water 2 GM in Premix Bag 1 BAG IV SCH ×3 (10:48→21:02)
[2022-09-23] MEDS: Potassium Chloride 10 MEQ in Premix Bag 1 BAG IV SCH ×4 (11:22→14:27)
[2022-09-23] MEDS: Pantoprazole 40 MG Vial IVPUSH SCH (20:58)
[2022-09-23] MEDS: Enoxaparin 40 MG/0.4 ML Syringe SUBCUT SCH (20:59)
[2022-09-24] MEDS: Metoprolol Tartrate 5 MG/5 ML SDV IVPUSH SCH ×4 (00:19→18:53)
[2022-09-24] MEDS: LORazepam 2 MG/ML SDV IV SCH ×8 (00:32→21:13)
[2022-09-24] MEDS: HYDROmorphone 0.5 MG/0.5 ML Syringe IVPUSH PRN ×6 (00:48→23:25)
[2022-09-24] MEDS: Magnesium Sulfate/Water 2 GM in Premix Bag 1 BAG IV SCH ×2 (03:42→09:45)
[2022-09-24] MEDS: Diltiazem 100 MG in Sodium Chloride 0.9% 100 ML IV SCH ×3 (05:23→19:21)
[2022-09-24] MEDS: Insulin Lispro 100 Unit/ML 3 ML KwikPen SUBCUT SCH ×4 (07:07→19:48)
[2022-09-24] MEDS: Potassium Chloride 10 MEQ in Premix Bag 1 BAG IV SCH ×4 (09:05→12:11)
[2022-09-24] MEDS: Haloperidol Lactate 5 MG/ML SDV IVPUSH PRN ×3 (10:28→21:35)
[2022-09-24] MEDS: Sodium Chloride 0.9% 1,000 ML IV SCH (16:08)
[2022-09-24] MEDS: Pantoprazole 40 MG Vial IVPUSH SCH (20:05)
[2022-09-24] MEDS: Enoxaparin 40 MG/0.4 ML Syringe SUBCUT SCH (20:05)
[2022-09-24] MEDS: Insulin Glargine,Human Rec. Analog 100 Units/ML 3 ML Pen SUBCUT SCH (20:08)
[2022-09-25] MEDS: Metoprolol Tartrate 5 MG/5 ML SDV IVPUSH SCH ×4 (01:14→19:28)
[2022-09-25] MEDS: Haloperidol Lactate 5 MG/ML SDV IVPUSH PRN ×3 (01:19→21:44)
[2022-09-25] MEDS: LORazepam 2 MG/ML SDV IV SCH ×5 (02:43→20:49)
[2022-09-25] MEDS: Diltiazem 100 MG in Sodium Chloride 0.9% 100 ML IV SCH ×3 (03:43→22:19)
[2022-09-25] MEDS: HYDROmorphone 0.5 MG/0.5 ML Syringe IVPUSH PRN ×4 (04:06→15:18)
[2022-09-25] MEDS: Insulin Lispro 100 Unit/ML 3 ML KwikPen SUBCUT SCH ×4 (07:58→20:59)
[2022-09-25] MEDS: Magnesium Sulfate/Water 2 GM in Premix Bag 1 BAG IV SCH ×3 (08:45→20:51)
[2022-09-25] MEDS: Potassium Chloride 10 MEQ in Premix Bag 1 BAG IV SCH ×4 (08:49→11:59)
[2022-09-25] MEDS: Sodium Chloride 0.9% 1,000 ML IV SCH (12:03)
[2022-09-25] MEDS: Zinc Oxide 20% Oint 56.7 GM Tube TOP PRN (15:08)
[2022-09-25] MEDS: Enoxaparin 40 MG/0.4 ML Syringe SUBCUT SCH (20:51)
[2022-09-25] MEDS: Pantoprazole 40 MG Vial IVPUSH SCH (20:54)
[2022-09-26] MEDS: Metoprolol Tartrate 5 MG/5 ML SDV IVPUSH SCH ×4 (01:06→19:28)
[2022-09-26] MEDS: LORazepam 2 MG/ML SDV IV SCH ×2 (01:50→15:14)
[2022-09-26] MEDS: HYDROmorphone 0.5 MG/0.5 ML Syringe IVPUSH PRN ×4 (02:15→19:33)
[2022-09-26] MEDS: Magnesium Sulfate/Water 2 GM in Premix Bag 1 BAG IV SCH (03:07)
[2022-09-26 06:00] LABS: ESTIMATED GFR 90 mL/min (>60)
[2022-09-26] MEDS: Sodium Chloride 0.9% 1,000 ML IV SCH (07:32)
[2022-09-26] MEDS: Insulin Lispro 100 Unit/ML 3 ML KwikPen SUBCUT SCH ×4 (07:36→20:46)
[2022-09-26] MEDS ORDERED: Potassium Chloride 10 MEQ in Premix Bag 1 BAG IV SCH (09:00)
[2022-09-26] MEDS: Diltiazem 100 MG in Sodium Chloride 0.9% 100 ML IV SCH (12:35)
[2022-09-26] MEDS: Insulin Glargine,Human Rec. Analog 100 Units/ML 3 ML Pen SUBCUT SCH (20:47)
[2022-09-26] MEDS: Pantoprazole 40 MG Vial IVPUSH SCH (20:47)
[2022-09-26] MEDS: Enoxaparin 40 MG/0.4 ML Syringe SUBCUT SCH (20:47)
[2022-09-26] MEDS: Haloperidol Lactate 5 MG/ML SDV IVPUSH PRN (21:17)
[2022-09-27] MEDS: LORazepam 2 MG/ML SDV IV SCH (00:03)
[2022-09-27] MEDS: HYDROmorphone 0.5 MG/0.5 ML Syringe IVPUSH PRN ×2 (00:59→02:52)
[2022-09-27] MEDS: Metoprolol Tartrate 5 MG/5 ML SDV IVPUSH SCH ×3 (01:01→12:39)
[2022-09-27] MEDS: Diltiazem 100 MG in Sodium Chloride 0.9% 100 ML IV SCH (01:42)
[2022-09-27] MEDS: Sodium Chloride 0.9% 1,000 ML IV SCH (03:30)
[2022-09-27] MEDS: Insulin Lispro 100 Unit/ML 3 ML KwikPen SUBCUT SCH ×4 (07:53→20:59)
[2022-09-27] MEDS: Magnesium Sulfate/Water 2 GM in Premix Bag 1 BAG IV SCH ×3 (08:49→21:00)
[2022-09-27] MEDS ORDERED: Potassium Chloride 10 MEQ in Premix Bag 1 BAG IV SCH (09:00)
[2022-09-27] MEDS: Metoprolol Tartrate 50 MG Tab PO SCH ×2 (14:43→20:09)
[2022-09-27] MEDS ORDERED: Potassium Chloride 20 MEQ Tab.ER PO ONE (16:00)
[2022-09-27] MEDS: Rivaroxaban 10 MG Tab PO SCH (16:32)
[2022-09-27] MEDS: LORazepam 1 MG Tab PO SCH (20:07)
[2022-09-27] MEDS: Gabapentin 300 MG Cap PO SCH (20:09)
[2022-09-27] MEDS: Insulin Glargine,Human Rec. Analog 100 Units/ML 3 ML Pen SUBCUT SCH (21:00)
[2022-09-27] MEDS: Zinc Oxide 20% Oint 56.7 GM Tube TOP PRN (21:12)
[2022-09-27] MEDS: Haloperidol Lactate 5 MG/ML SDV IVPUSH PRN (22:45)
[2022-09-28] MEDS: LORazepam 1 MG Tab PO SCH (00:45)
[2022-09-28] MEDS: HYDROmorphone 0.5 MG/0.5 ML Syringe IVPUSH PRN (01:37)
[2022-09-28] MEDS: Magnesium Sulfate/Water 2 GM in Premix Bag 1 BAG IV SCH ×2 (03:25→08:06)
[2022-09-28] MEDS: Insulin Lispro 100 Unit/ML 3 ML KwikPen SUBCUT SCH ×4 (08:03→22:33)
[2022-09-28] MEDS: Tamsulosin 0.4 MG Cap.ER PO SCH (08:06)
[2022-09-28] MEDS: Hydrochlorothiazide 25 MG Tab PO SCH (08:06)
[2022-09-28] MEDS: Pantoprazole 40 MG Tab.CR PO SCH (08:06)
[2022-09-28] MEDS: Metoprolol Tartrate 50 MG Tab PO SCH ×2 (08:06→22:39)
[2022-09-28] MEDS ORDERED: Potassium Chloride 20 MEQ Tab.ER PO ONE (08:30)
[2022-09-28] MEDS: amLODIPine 5 MG Tab PO SCH (08:49)
[2022-09-28] MEDS: Gabapentin 300 MG Cap PO SCH ×3 (08:49→22:42)
[2022-09-28] MEDS: Sertraline 50 MG Tab PO SCH (08:51)
[2022-09-28] MEDS: Potassium Chloride 20 MEQ Tab.ER PO SCH ×3 (11:01→22:42)
[2022-09-28] MEDS ORDERED: Sodium Chloride 0.9% 1,000 ML IV SCH (13:30)
[2022-09-28] MEDS: Sodium Chloride 0.9% 1,000 ML IV SCH ×2 (15:29→19:29)
[2022-09-28] MEDS: Rivaroxaban 10 MG Tab PO SCH (18:02)
[2022-09-28] MEDS: Insulin Glargine,Human Rec. Analog 100 Units/ML 3 ML Pen SUBCUT SCH (22:34)
[2022-09-29] MEDS: Sodium Chloride 0.9% 1,000 ML IV SCH ×2 (03:17→14:43)
[2022-09-29] MEDS ORDERED: Potassium Chloride 20 MEQ Tab.ER PO ONE ×2 (08:00→15:30)
[2022-09-29] MEDS: Metoprolol Tartrate 50 MG Tab PO SCH ×2 (08:17→21:23)
[2022-09-29] MEDS: Gabapentin 300 MG Cap PO SCH ×2 (08:17→21:26)
[2022-09-29] MEDS: Hydrochlorothiazide 25 MG Tab PO SCH (08:18)
[2022-09-29] MEDS: amLODIPine 5 MG Tab PO SCH (08:18)
[2022-09-29] MEDS: Tamsulosin 0.4 MG Cap.ER PO SCH (08:18)
[2022-09-29] MEDS: Sertraline 50 MG Tab PO SCH (08:18)
[2022-09-29] MEDS: Potassium Chloride 20 MEQ Tab.ER PO SCH ×2 (08:18→21:22)
[2022-09-29] MEDS: Pantoprazole 40 MG Tab.CR PO SCH (08:18)
[2022-09-29] MEDS: Insulin Lispro 100 Unit/ML 3 ML KwikPen SUBCUT SCH ×4 (08:24→21:51)
[2022-09-29] MEDS: Magnesium Sulfate/Water 2 GM in Premix Bag 1 BAG IV SCH ×2 (15:37→21:24)
[2022-09-29] MEDS: Rivaroxaban 10 MG Tab PO SCH (16:12)
[2022-09-29] MEDS: Magnesium Oxide 400 MG Tab PO SCH ×2 (16:12→21:23)
[2022-09-29] MEDS: Loperamide 2 MG Cap PO PRN (16:14)
[2022-09-29] MEDS: Insulin Glargine,Human Rec. Analog 100 Units/ML 3 ML Pen SUBCUT SCH (21:51)
[2022-09-30] MEDS: Insulin Lispro 100 Unit/ML 3 ML KwikPen SUBCUT SCH ×4 (07:39→21:34)
[2022-09-30] MEDS: Pantoprazole 40 MG Tab.CR PO SCH (08:23)
[2022-09-30] MEDS: Tamsulosin 0.4 MG Cap.ER PO SCH (08:23)
[2022-09-30] MEDS: Metoprolol Tartrate 50 MG Tab PO SCH ×2 (08:24→20:41)
[2022-09-30] MEDS: Potassium Chloride 20 MEQ Tab.ER PO SCH ×2 (08:24→20:40)
[2022-09-30] MEDS: Magnesium Oxide 400 MG Tab PO SCH ×2 (08:25→20:42)
[2022-09-30] MEDS: amLODIPine 5 MG Tab PO SCH (08:25)
[2022-09-30] MEDS: Sertraline 50 MG Tab PO SCH (08:26)
[2022-09-30] MEDS ORDERED: Potassium Chloride 20 MEQ Tab.ER PO ONE ×2 (08:30→14:00)
[2022-09-30] MEDS ORDERED: Magnesium Sulfate/Water 2 GM in Premix Bag 1 BAG IV SCH (09:00)
[2022-09-30] MEDS: Gabapentin 300 MG Cap PO SCH ×2 (09:02→20:44)
[2022-09-30] MEDS: Potassium Chloride 10 MEQ in Premix Bag 1 BAG IV SCH ×4 (09:03→13:20)
[2022-09-30] MEDS: Sodium Chloride 0.9% 1,000 ML IV SCH (09:04)
[2022-09-30] MEDS: Loperamide 2 MG Cap PO PRN ×2 (15:23→19:53)
[2022-09-30] MEDS: Rivaroxaban 10 MG Tab PO SCH (16:39)
[2022-09-30] MEDS: Insulin Glargine,Human Rec. Analog 100 Units/ML 3 ML Pen SUBCUT SCH (21:33)
[2022-10-01] MEDS: Insulin Lispro 100 Unit/ML 3 ML KwikPen SUBCUT SCH ×4 (07:39→21:06)
[2022-10-01] MEDS: Pantoprazole 40 MG Tab.CR PO SCH (08:01)
[2022-10-01] MEDS: Tamsulosin 0.4 MG Cap.ER PO SCH (08:01)
[2022-10-01] MEDS: Potassium Chloride 20 MEQ Tab.ER PO SCH ×2 (08:01→21:09)
[2022-10-01] MEDS: Metoprolol Tartrate 50 MG Tab PO SCH ×2 (08:02→21:10)
[2022-10-01] MEDS: Magnesium Oxide 400 MG Tab PO SCH ×2 (08:02→21:11)
[2022-10-01] MEDS: amLODIPine 5 MG Tab PO SCH (08:03)
[2022-10-01] MEDS: Sertraline 50 MG Tab PO SCH (08:03)
[2022-10-01] MEDS: Gabapentin 300 MG Cap PO SCH ×2 (08:05→21:17)
[2022-10-01] MEDS: Magnesium Sulfate/Water 2 GM in Premix Bag 1 BAG IV SCH ×3 (09:33→21:11)
[2022-10-01] MEDS ORDERED: Potassium Chloride 20 MEQ Tab.ER PO ONE (14:00)
[2022-10-01] MEDS: Rivaroxaban 10 MG Tab PO SCH (17:19)
[2022-10-01] MEDS: Loperamide 2 MG Cap PO PRN (19:01)
[2022-10-01] MEDS: Insulin Glargine,Human Rec. Analog 100 Units/ML 3 ML Pen SUBCUT SCH (21:06)
[2022-10-01] MEDS: LORazepam 1 MG Tab PO SCH (21:18)
[2022-10-02] MEDS: Pantoprazole 40 MG Tab.CR PO SCH (07:24)
[2022-10-02] MEDS: Sertraline 50 MG Tab PO SCH (08:14)
[2022-10-02] MEDS: Metoprolol Tartrate 50 MG Tab PO SCH ×2 (08:14→20:29)
[2022-10-02] MEDS: Tamsulosin 0.4 MG Cap.ER PO SCH (08:14)
[2022-10-02] MEDS: Magnesium Oxide 400 MG Tab PO SCH ×2 (08:14→20:29)
[2022-10-02] MEDS: amLODIPine 5 MG Tab PO SCH (08:15)
[2022-10-02] MEDS: Potassium Chloride 20 MEQ Tab.ER PO SCH ×2 (08:17→20:28)
[2022-10-02] MEDS: Gabapentin 300 MG Cap PO SCH ×2 (08:19→20:32)
[2022-10-02] MEDS: Insulin Lispro 100 Unit/ML 3 ML KwikPen SUBCUT SCH ×4 (10:06→21:33)
[2022-10-02] MEDS: Rivaroxaban 10 MG Tab PO SCH (16:50)
[2022-10-02] MEDS: Loperamide 2 MG Cap PO PRN ×2 (18:49→23:21)
[2022-10-02] MEDS: Insulin Glargine,Human Rec. Analog 100 Units/ML 3 ML Pen SUBCUT SCH (21:34)
[2022-10-03] MEDS: Insulin Lispro 100 Unit/ML 3 ML KwikPen SUBCUT SCH ×4 (07:58→22:22)
[2022-10-03] MEDS: amLODIPine 5 MG Tab PO SCH (08:04)
[2022-10-03] MEDS: Potassium Chloride 20 MEQ Tab.ER PO SCH ×2 (08:04→22:22)
[2022-10-03] MEDS: Pantoprazole 40 MG Tab.CR PO SCH (08:04)
[2022-10-03] MEDS: Metoprolol Tartrate 50 MG Tab PO SCH ×2 (08:04→22:24)
[2022-10-03] MEDS: Tamsulosin 0.4 MG Cap.ER PO SCH (08:04)
[2022-10-03] MEDS: Magnesium Oxide 400 MG Tab PO SCH ×2 (08:04→22:26)
[2022-10-03] MEDS: Sertraline 50 MG Tab PO SCH (08:04)
[2022-10-03] MEDS: Gabapentin 300 MG Cap PO SCH ×2 (08:06→22:32)
[2022-10-03] MEDS: Haloperidol Lactate 5 MG/ML SDV IVPUSH PRN (14:13)
[2022-10-03] MEDS: Rivaroxaban 10 MG Tab PO SCH (17:04)
[2022-10-03] MEDS: Insulin Glargine,Human Rec. Analog 100 Units/ML 3 ML Pen SUBCUT SCH (22:23)
[2022-10-03] MEDS: Melatonin 3 MG Tab PO PRN (22:40)
[2022-10-04] MEDS: Tamsulosin 0.4 MG Cap.ER PO SCH (08:31)
[2022-10-04] MEDS: Potassium Chloride 20 MEQ Tab.ER PO SCH ×2 (08:31→21:42)
[2022-10-04] MEDS: Pantoprazole 40 MG Tab.CR PO SCH (08:31)
[2022-10-04] MEDS: Magnesium Oxide 400 MG Tab PO SCH ×2 (08:32→21:39)
[2022-10-04] MEDS: Metoprolol Tartrate 50 MG Tab PO SCH ×2 (08:32→21:39)
[2022-10-04] MEDS: amLODIPine 5 MG Tab PO SCH (08:32)
[2022-10-04] MEDS: Sertraline 50 MG Tab PO SCH (08:33)
[2022-10-04] MEDS: Insulin Lispro 100 Unit/ML 3 ML KwikPen SUBCUT SCH ×4 (08:33→21:38)
[2022-10-04] MEDS: Gabapentin 300 MG Cap PO SCH ×2 (08:39→21:45)
[2022-10-04] MEDS: Loperamide 2 MG Cap PO PRN ×3 (08:46→21:52)
[2022-10-04] MEDS: Rivaroxaban 10 MG Tab PO SCH (17:36)
[2022-10-04] MEDS: Melatonin 3 MG Tab PO PRN (21:37)
[2022-10-04] MEDS: Insulin Glargine,Human Rec. Analog 100 Units/ML 3 ML Pen SUBCUT SCH (21:38)
[2022-10-05] MEDS: Insulin Lispro 100 Unit/ML 3 ML KwikPen SUBCUT SCH ×5 (08:19→21:19)
[2022-10-05] MEDS: Potassium Chloride 20 MEQ Tab.ER PO SCH ×2 (08:20→20:33)
[2022-10-05] MEDS: Pantoprazole 40 MG Tab.CR PO SCH (08:20)
[2022-10-05] MEDS: Tamsulosin 0.4 MG Cap.ER PO SCH (08:20)
[2022-10-05] MEDS: amLODIPine 5 MG Tab PO SCH (08:21)
[2022-10-05] MEDS: Magnesium Oxide 400 MG Tab PO SCH ×2 (08:21→20:32)
[2022-10-05] MEDS: Sertraline 50 MG Tab PO SCH (08:22)
[2022-10-05] MEDS: Metoprolol Tartrate 50 MG Tab PO SCH ×2 (08:22→20:33)
[2022-10-05] MEDS: Gabapentin 300 MG Cap PO SCH ×2 (08:24→20:37)
[2022-10-05] MEDS: Loperamide 2 MG Cap PO PRN ×3 (08:28→21:25)
[2022-10-05] MEDS: Magnesium Sulfate/Water 2 GM in Premix Bag 1 BAG IV SCH ×3 (09:11→20:32)
[2022-10-05] MEDS: Rivaroxaban 10 MG Tab PO SCH (16:51)
[2022-10-05] MEDS: Melatonin 3 MG Tab PO PRN (20:37)
[2022-10-05] MEDS: Insulin Glargine,Human Rec. Analog 100 Units/ML 3 ML Pen SUBCUT SCH (21:20)
[2022-10-06] MEDS: Magnesium Sulfate/Water 2 GM in Premix Bag 1 BAG IV SCH (03:03)
[2022-10-06] MEDS: Pantoprazole 40 MG Tab.CR PO SCH (07:36)
[2022-10-06] MEDS: Insulin Lispro 100 Unit/ML 3 ML KwikPen SUBCUT SCH ×2 (07:36→11:23)
[2022-10-06] MEDS: Potassium Chloride 20 MEQ Tab.ER PO SCH (08:52)
[2022-10-06] MEDS: Magnesium Oxide 400 MG Tab PO SCH (08:52)
[2022-10-06] MEDS: amLODIPine 5 MG Tab PO SCH (08:53)
[2022-10-06] MEDS: Sertraline 50 MG Tab PO SCH (08:54)
[2022-10-06] MEDS: Metoprolol Tartrate 50 MG Tab PO SCH (08:54)
[2022-10-06] MEDS: Gabapentin 300 MG Cap PO SCH (08:56)
[2022-10-06] MEDS: Tamsulosin 0.4 MG Cap.ER PO SCH (08:57)
[2022-10-06] MEDS: Loperamide 2 MG Cap PO PRN (09:00)
[2022-10-06 10:26] VITALS: BP 162/88; PULSE 62
== END 2022-10-06 13:10 | disposition home or self-care (01) | DRG 897 ==
LOC: JP.ED 09:43 → JP.ICU 14:40 → JP.MS 09-28 10:46
PROVIDERS: ADMIT Internal Medicine; ATTEND Internal Medicine
DX: F10.231 Alcohol dependence with withdrawal delirium (principal); F10.920 Alcohol use, unspecified with intoxication, uncomplicated; N17.9 Acute kidney failure, unspecified; E11.9 Type 2 diabetes mellitus without complications; K50.90 Crohn's disease, unspecified, without complications; I48.91 Unspecified atrial fibrillation; E11.42 Type 2 diabetes mellitus with diabetic polyneuropathy; Z20.822 Contact with and (suspected) exposure to COVID-19; E86.0 Dehydration; H91.90 Unspecified hearing loss, unspecified ear; H54.7 Unspecified visual loss; E78.00 Pure hypercholesterolemia, unspecified; I10 Essential (primary) hypertension; K59.09 Other constipation; K21.9 Gastro-esophageal reflux disease without esophagitis; E83.42 Hypomagnesemia; E87.6 Hypokalemia; E66.9 Obesity, unspecified; I25.10 Atherosclerotic heart disease of native coronary artery without angina pectoris; N40.0 Benign prostatic hyperplasia without lower urinary tract symptoms; E53.8 Deficiency of other specified B group vitamins; Z79.4 Long term (current) use of insulin; Z79.899 Other long term (current) drug therapy; Z79.01 Long term (current) use of anticoagulants; Z88.1 Allergy status to other antibiotic agents; Z88.0 Allergy status to penicillin; Z90.49 Acquired absence of other specified parts of digestive tract; Z68.27 Body mass index [BMI] 27.0-27.9, adult; Z95.5 Presence of coronary angioplasty implant and graft
CPT/HCPCS: 36415; 70450; 80048; 80053; 80305-QW; 80307; 82140; 82947; 83735; 84132; 85025; 85027; 85610; 93005; 93010; 96125-GO; 96361; 96365; 96366; 96375; 96376; 97110-GO; 97162-GP; 97165-GO; 97530-GP; 99223; 99232; 99233; 99239; 99285; 99285-25; A9270-GY; C9113; J1170; J1200; J1630; J1650; J1815; J1815-GY; J2060; J3411; J3475; J3480; J3490; J7030; J7121; U0002

== ENCOUNTER 2022-10-16 14:49 | Emergency (ER) | payer MEDICARE, OTHER ==
[2022-10-16] MEDS ORDERED: Sodium Chloride 0.9% 10 ML Syringe FLUSH PRN (15:04)
[2022-10-16] MEDS ORDERED: Magnesium Sulfate/Water 2 GM in Premix Bag 1 BAG IV ONE (15:06)
[2022-10-16] MEDS ORDERED: Calcium Gluconate 10% 1 GM/10 ML SDV IVPUSH ONE (15:06)
[2022-10-16] MEDS ORDERED: Diltiazem 25 MG/5 ML SDV IVPUSH ONE (15:08)
[2022-10-16] MEDS ORDERED: Diltiazem 100 MG in Sodium Chloride 0.9% 100 ML IV SCH ×2 (15:15→21:30)
[2022-10-16] MEDS: Potassium Chloride 10 MEQ in Premix Bag 1 BAG IV SCH ×2 (15:49→17:08)
[2022-10-16] MEDS ORDERED: Potassium Chloride 100 ML ONE (17:03)
[2022-10-16 17:44] LABS: CORONAVIRUS COVID-19 NAA NEGATIVE (NEGATIVE)
[2022-10-16 20:03] VITALS: BP 131/78; PULSE 83
== END 2022-10-16 21:34 ==
LOC: JP.ED 14:49
DX: K50.90 Crohn's disease, unspecified, without complications (principal); E11.42 Type 2 diabetes mellitus with diabetic polyneuropathy; I48.91 Unspecified atrial fibrillation; I25.10 Atherosclerotic heart disease of native coronary artery without angina pectoris; E87.6 Hypokalemia; E83.42 Hypomagnesemia; E83.51 Hypocalcemia; F10.99 Alcohol use, unspecified with unspecified alcohol-induced disorder; I12.9 Hypertensive chronic kidney disease with stage 1 through stage 4 chronic kidney disease, or unspecified chronic kidney disease; N18.31 Chronic kidney disease, stage 3a; E78.00 Pure hypercholesterolemia, unspecified; K21.9 Gastro-esophageal reflux disease without esophagitis; M10.9 Gout, unspecified; E66.9 Obesity, unspecified; Z68.27 Body mass index [BMI] 27.0-27.9, adult; Z79.01 Long term (current) use of anticoagulants; Z88.1 Allergy status to other antibiotic agents; Z88.0 Allergy status to penicillin; Z79.4 Long term (current) use of insulin; Z79.899 Other long term (current) drug therapy; Z20.822 Contact with and (suspected) exposure to COVID-19
CPT/HCPCS: 0241U; 36415; 80307; 82009; 82800; 82947; 93005; 93010; 96365; 96366; 96368; 96374; 96376; 99285; 99285-25; J0610; J3475; J3480; J3490

== ENCOUNTER 2023-03-02 17:07 | Emergency (ER) | payer MEDICARE, OTHER ==
[2023-03-02 18:14] VITALS: BP 163/69; PULSE 67
[2023-03-02] MEDS ORDERED: Magnesium Sulfate/Water 2 GM in Premix Bag 1 BAG IV ONE (18:47)
== END 2023-03-02 21:04 | disposition home or self-care (01) ==
LOC: JP.ED 17:07
DX: E83.42 Hypomagnesemia (principal); I48.91 Unspecified atrial fibrillation; I25.10 Atherosclerotic heart disease of native coronary artery without angina pectoris; I10 Essential (primary) hypertension; E78.00 Pure hypercholesterolemia, unspecified; K21.9 Gastro-esophageal reflux disease without esophagitis; E11.9 Type 2 diabetes mellitus without complications; M10.9 Gout, unspecified; E66.9 Obesity, unspecified; Z79.01 Long term (current) use of anticoagulants; Z79.899 Other long term (current) drug therapy; Z88.1 Allergy status to other antibiotic agents; Z88.0 Allergy status to penicillin
CPT/HCPCS: 96365; 96366; 99283; J3475

== ENCOUNTER 2023-08-08 11:14 | Inpatient (IN) | payer MEDICARE, OTHER ==
[2023-08-08] MEDS ORDERED: Sodium Chloride 0.9% 1,000 ML IV ONE (11:49)
[2023-08-08] MEDS ORDERED: Sodium Chloride 0.9% 10 ML Syringe FLUSH PRN ×2 (11:49→14:18)
[2023-08-08 12:02] LABS: BASOPHILS ABSOLUTE AUTO 0.03 K/uL (0.00-0.10); BASOPHILS PERCENT AUTO 0.5 % (0.1-1.3); EOSINOPHILS PERCENT AUTO 0.2 % (0.0-5.4); HEMATOCRIT 35.5 % (38.4-49.7); HEMOGLOBIN 11.6 g/dL (12.9-16.9); IMMATURE GRAN ABSOLUTE AUTO 0.05 K/uL (0.00-0.23); IMMATURE GRAN PERCENT AUTO 0.8 % (0.0-0.7); LYMPHOCYTES ABSOLUTE AUTO 0.79 K/uL (0.8-3.3); LYMPHOCYTES PERCENT AUTO 12.6 % (11.4-47.7); MEAN CORPUSCULAR HEMOGLOBIN 27.2 pg (31.6-35.5); MEAN CORPUSCULAR HGB CONC 32.7 g/dL (31.6-35.5); MEAN CORPUSCULAR VOLUME 83.3 fL (81.4-99.0); MONOCYTES PERCENT AUTO 11.1 % (3.3-12.6); NEUTROPHILS ABSOLUTE AUTO 4.71 K/uL (1.0-7.6); NEUTROPHILS PERCENT AUTO 74.8 % (40.0-78.1); PLATELET COUNT,PLT 136 K/uL (130-375); RED BLOOD CELL COUNT 4.26 M/uL (4.14-5.76); WHITE BLOOD CELL COUNT,WBC 6.3 K/uL (3.2-11.0)
[2023-08-08 12:05] LABS: EOSINOPHILS ABSOLUTE AUTO 0.01 K/uL (0.00-0.40)
[2023-08-08 12:22] LABS: A/G RATIO 0.9 (1.2-2.2); ALANINE AMINOTRANSFERASE,ALT 28 U/L (12-78); ALBUMIN 3.1 g/dL (3.4-5.0); ALKALINE PHOSPHATASE 185 U/L (46-116); ANION GAP 19.2 mmol/L (5.0-14.0); ASPARTATE AMNIOTRANSFERASE,AST 36 U/L (15-37); BILIRUBIN TOTAL 1.4 mg/dL (0.2-1.0); BLOOD UREA NITROGEN,BUN 22 mg/dL (7-18); CALCIUM 8.8 mg/dL (8.5-10.1); CARBON DIOXIDE,CO2 22 mmol/L (21-32); CHLORIDE,CL 99 mmol/L (100-108); CREATININE 1.4 mg/dL (0.8-1.3); EST CRCL DRUG DOSING (CG) 50.04 mL/min; ESTIMATED GFR 52 mL/min (>60); GLUCOSE RANDOM 135 mg/dL (74-106); POTASSIUM,K 4.2 mmol/L (3.6-5.2); PROTEIN TOTAL,TP 6.6 g/dL (6.4-8.2); SODIUM,NA 136 mmol/L (140-148)
[2023-08-08 13:02] LABS: CORONAVIRUS COVID-19 NAA NEGATIVE (NEGATIVE); INFLUENZA A NAA NEGATIVE (NEGATIVE); INFLUENZA B NAA NEGATIVE (NEGATIVE); RESPIRATORY SYNCYTIAL VIR NAA NEGATIVE (NEGATIVE)
[2023-08-08] MEDS ORDERED: 50% Dextrose in Water 50 ML Syringe IVPUSH PRN (14:18)
[2023-08-08] MEDS ORDERED: Polyethylene Glycol 3350 Powder 17 GM Packet PO PRN (14:18)
[2023-08-08] MEDS ORDERED: Glucose Gel 15 GM in 37.5 GM Tube PO PRN (14:18)
[2023-08-08] MEDS ORDERED: MVI, Adult with Vitamin K 10 ML, Thiamine 100 MG, Folic Acid 1 MG, Magnesium Sulfate 2 ... IV ONE ×5 (14:18)
[2023-08-08] MEDS ORDERED: Glucagon,Human Recombinant 1 MG Vial IM PRN (14:18)
[2023-08-08] MEDS ORDERED: Ondansetron 4 MG/2 ML SDV IV PRN (14:18)
[2023-08-08] MEDS ORDERED: 50% Dextrose in Water 50 ML Syringe IV PRN (14:18)
[2023-08-08] MEDS ORDERED: Albuterol 0.083% 2.5 MG/3 ML Neb Soln NEB PRN (14:18)
[2023-08-08] MEDS: Magnesium Sulfate/Water 2 GM in Premix Bag 1 BAG IV SCH ×2 (15:22→22:47)
[2023-08-08] MEDS: LORazepam 1 MG Tab PO SCH ×2 (15:23→18:17)
[2023-08-08] MEDS: Thiamine 100 MG Tab PO SCH (15:23)
[2023-08-08] MEDS: Folic Acid 1 MG Tab PO SCH (15:24)
[2023-08-08] MEDS: Insulin Lispro 100 Unit/ML 3 ML KwikPen SUBCUT SCH ×2 (17:01→20:21)
[2023-08-08] MEDS: Insulin Glargine,Human Rec. Analog 100 Units/ML 3 ML Pen SUBCUT PRN (20:26)
[2023-08-08] MEDS: LORazepam 2 MG/ML SDV IV SCH ×3 (20:33→22:39)
[2023-08-08] MEDS: Magnesium Oxide 400 MG Tab PO SCH (20:34)
[2023-08-08] MEDS: atorvaSTATin 20 MG Tab PO SCH (20:34)
[2023-08-08] MEDS: Metoprolol Tartrate 50 MG Tab PO SCH (20:35)
[2023-08-08] MEDS: Gabapentin 400 MG Cap PO SCH (20:35)
[2023-08-08] MEDS ORDERED: Metoprolol Tartrate 25 MG Tab PO SCH (21:00)
[2023-08-08] MEDS ORDERED: atorvaSTATin 10 MG Tab PO SCH (21:00)
[2023-08-09] MEDS: Sodium Chloride 0.9% 1,000 ML IV SCH ×2 (01:03→08:48)
[2023-08-09] MEDS: Magnesium Sulfate/Water 2 GM in Premix Bag 1 BAG IV SCH ×2 (05:21→09:11)
[2023-08-09 05:28] LABS: BASOPHILS ABSOLUTE AUTO 0.03 K/uL (0.00-0.10); BASOPHILS PERCENT AUTO 0.6 % (0.1-1.3); EOSINOPHILS ABSOLUTE AUTO 0.08 K/uL (0.00-0.40); EOSINOPHILS PERCENT AUTO 1.5 % (0.0-5.4); HEMATOCRIT 34.3 % (38.4-49.7); HEMOGLOBIN 10.8 g/dL (12.9-16.9); IMMATURE GRAN PERCENT AUTO 0.4 % (0.0-0.7); LYMPHOCYTES ABSOLUTE AUTO 1.46 K/uL (0.8-3.3); LYMPHOCYTES PERCENT AUTO 26.9 % (11.4-47.7); MEAN CORPUSCULAR HGB CONC 31.5 g/dL (31.6-35.5); MEAN CORPUSCULAR VOLUME 85.8 fL (81.4-99.0); MONOCYTES ABSOLUTE AUTO 0.65 K/uL (0.20-0.90); NEUTROPHILS ABSOLUTE AUTO 3.19 K/uL (1.0-7.6); NEUTROPHILS PERCENT AUTO 58.6 % (40.0-78.1); PLATELET COUNT,PLT 126 K/uL (130-375); WHITE BLOOD CELL COUNT,WBC 5.4 K/uL (3.2-11.0)
[2023-08-09 05:36] LABS: ANION GAP 11.2 mmol/L (5.0-14.0); CALCIUM 8.4 mg/dL (8.5-10.1); CREATININE 1.2 mg/dL (0.8-1.3); EST CRCL DRUG DOSING (CG) 58.46 mL/min; MAGNESIUM 2.3 mg/dL (1.8-2.4); POTASSIUM,K 3.9 mmol/L (3.6-5.2)
[2023-08-09 05:48] LABS: IMMATURE GRAN ABSOLUTE AUTO 0.02 K/uL (0.00-0.23)
[2023-08-09] MEDS: Insulin Lispro 100 Unit/ML 3 ML KwikPen SUBCUT SCH ×4 (08:44→19:48)
[2023-08-09] MEDS ORDERED: Sodium Chloride 0.9% 1,000 ML IV SCH (11:00)
[2023-08-09] MEDS: Pantoprazole 40 MG Tab.CR PO SCH (11:43)
[2023-08-09] MEDS: Folic Acid 1 MG Tab PO SCH (11:44)
[2023-08-09] MEDS: Thiamine 100 MG Tab PO SCH (11:44)
[2023-08-09] MEDS: Spironolactone 25 MG Tab PO SCH (12:16)
[2023-08-09] MEDS: Sertraline 50 MG Tab PO SCH (12:16)
[2023-08-09] MEDS: Lisinopril 10 MG Tab PO SCH (12:16)
[2023-08-09] MEDS: Metoprolol Tartrate 50 MG Tab PO SCH ×3 (12:17→20:51)
[2023-08-09] MEDS: Magnesium Oxide 400 MG Tab PO SCH ×3 (12:17→20:51)
[2023-08-09] MEDS: amLODIPine 5 MG Tab PO SCH (12:17)
[2023-08-09] MEDS: Alfuzosin 10 MG Tab.ER PO SCH (12:17)
[2023-08-09] MEDS: Rivaroxaban 10 MG Tab PO SCH (12:17)
[2023-08-09] MEDS: Tamsulosin 0.4 MG Cap.ER PO SCH (12:17)
[2023-08-09] MEDS: Gabapentin 400 MG Cap PO SCH ×4 (13:20→22:35)
[2023-08-09] MEDS: Insulin Glargine,Human Rec. Analog 100 Units/ML 3 ML Pen SUBCUT PRN (19:49)
[2023-08-09] MEDS: atorvaSTATin 20 MG Tab PO SCH ×2 (19:52→20:51)
[2023-08-09] MEDS: LORazepam 2 MG/ML SDV IV SCH ×2 (20:56→23:57)
[2023-08-10 05:20] LABS: ANION GAP 7.9 mmol/L (5.0-14.0); CALCIUM 8.6 mg/dL (8.5-10.1); CREATININE 1.1 mg/dL (0.8-1.3); EST CRCL DRUG DOSING (CG) 63.78 mL/min; POTASSIUM,K 4.5 mmol/L (3.6-5.2)
[2023-08-10] MEDS: Pantoprazole 40 MG Tab.CR PO SCH (08:25)
[2023-08-10] MEDS: Insulin Lispro 100 Unit/ML 3 ML KwikPen SUBCUT SCH ×4 (08:51→20:36)
[2023-08-10] MEDS: Magnesium Oxide 400 MG Tab PO SCH ×2 (08:52→20:35)
[2023-08-10] MEDS: Alfuzosin 10 MG Tab.ER PO SCH (08:52)
[2023-08-10] MEDS: Metoprolol Tartrate 50 MG Tab PO SCH ×2 (08:53→20:33)
[2023-08-10] MEDS: amLODIPine 5 MG Tab PO SCH (08:54)
[2023-08-10] MEDS: Lisinopril 10 MG Tab PO SCH (08:55)
[2023-08-10] MEDS: Sertraline 50 MG Tab PO SCH (08:56)
[2023-08-10] MEDS: Rivaroxaban 10 MG Tab PO SCH (08:56)
[2023-08-10] MEDS: Folic Acid 1 MG Tab PO SCH (08:57)
[2023-08-10] MEDS: Tamsulosin 0.4 MG Cap.ER PO SCH (08:57)
[2023-08-10] MEDS: Spironolactone 25 MG Tab PO SCH (08:57)
[2023-08-10] MEDS: Thiamine 100 MG Tab PO SCH (08:58)
[2023-08-10] MEDS: LORazepam 1 MG Tab PO SCH (11:24)
[2023-08-10] MEDS: LORazepam 2 MG/ML SDV IV SCH ×2 (13:10→16:53)
[2023-08-10] MEDS: Gabapentin 400 MG Cap PO SCH ×3 (15:00→21:31)
[2023-08-10] MEDS: Acetaminophen 325 MG Tab PO PRN (16:48)
[2023-08-10] MEDS: atorvaSTATin 20 MG Tab PO SCH (20:33)
[2023-08-11 05:17] LABS: A/G RATIO 0.7 (1.2-2.2); ALANINE AMINOTRANSFERASE,ALT 21 U/L (12-78); ALBUMIN 2.6 g/dL (3.4-5.0); ALKALINE PHOSPHATASE 216 U/L (46-116); ASPARTATE AMNIOTRANSFERASE,AST 21 U/L (15-37); BILIRUBIN TOTAL 0.8 mg/dL (0.2-1.0); BLOOD UREA NITROGEN,BUN 12 mg/dL (7-18); CALCIUM 8.6 mg/dL (8.5-10.1); CARBON DIOXIDE,CO2 26 mmol/L (21-32); CHLORIDE,CL 104 mmol/L (100-108); CREATININE 1.1 mg/dL (0.8-1.3); EST CRCL DRUG DOSING (CG) 63.78 mL/min; ESTIMATED GFR 70 mL/min (>60); GLUCOSE RANDOM 133 mg/dL (74-106); POTASSIUM,K 4.1 mmol/L (3.6-5.2); PROTEIN TOTAL,TP 6.1 g/dL (6.4-8.2); SODIUM,NA 139 mmol/L (140-148)
[2023-08-11 05:47] LABS: ANION GAP 13.1 mmol/L (5.0-14.0)
[2023-08-11] MEDS: Gabapentin 400 MG Cap PO SCH ×3 (06:02→22:09)
[2023-08-11] MEDS: Metoprolol Tartrate 50 MG Tab PO SCH ×2 (08:03→20:09)
[2023-08-11] MEDS: Thiamine 100 MG Tab PO SCH (08:03)
[2023-08-11] MEDS: Sertraline 50 MG Tab PO SCH (08:04)
[2023-08-11] MEDS: Rivaroxaban 10 MG Tab PO SCH (08:04)
[2023-08-11] MEDS: Folic Acid 1 MG Tab PO SCH (08:04)
[2023-08-11] MEDS: amLODIPine 5 MG Tab PO SCH (08:05)
[2023-08-11] MEDS: Pantoprazole 40 MG Tab.CR PO SCH (08:05)
[2023-08-11] MEDS: Insulin Lispro 100 Unit/ML 3 ML KwikPen SUBCUT SCH ×4 (08:05→20:06)
[2023-08-11] MEDS: Magnesium Oxide 400 MG Tab PO SCH ×2 (08:05→20:09)
[2023-08-11] MEDS: Spironolactone 25 MG Tab PO SCH (08:05)
[2023-08-11] MEDS: Tamsulosin 0.4 MG Cap.ER PO SCH (08:06)
[2023-08-11] MEDS: Lisinopril 10 MG Tab PO SCH (08:06)
[2023-08-11] MEDS: Alfuzosin 10 MG Tab.ER PO SCH (08:07)
[2023-08-11] MEDS: LORazepam 1 MG Tab PO SCH ×2 (16:02→20:10)
[2023-08-11] MEDS: atorvaSTATin 20 MG Tab PO SCH (20:09)
[2023-08-12 05:43] LABS: CALCIUM 8.6 mg/dL (8.5-10.1); CREATININE 1.1 mg/dL (0.8-1.3); EST CRCL DRUG DOSING (CG) 63.78 mL/min; POTASSIUM,K 3.8 mmol/L (3.6-5.2)
[2023-08-12 05:52] LABS: ANION GAP 11.8 mmol/L (5.0-14.0)
[2023-08-12] MEDS: Gabapentin 400 MG Cap PO SCH ×4 (07:25→21:11)
[2023-08-12] MEDS: Pantoprazole 40 MG Tab.CR PO SCH (07:30)
[2023-08-12] MEDS: Insulin Lispro 100 Unit/ML 3 ML KwikPen SUBCUT SCH ×4 (07:36→20:27)
[2023-08-12] MEDS: Metoprolol Tartrate 50 MG Tab PO SCH ×2 (08:07→20:50)
[2023-08-12] MEDS: Rivaroxaban 10 MG Tab PO SCH (08:08)
[2023-08-12] MEDS: Alfuzosin 10 MG Tab.ER PO SCH (08:08)
[2023-08-12] MEDS: Thiamine 100 MG Tab PO SCH (08:09)
[2023-08-12] MEDS: Tamsulosin 0.4 MG Cap.ER PO SCH (08:09)
[2023-08-12] MEDS: Folic Acid 1 MG Tab PO SCH (08:10)
[2023-08-12] MEDS: Lisinopril 10 MG Tab PO SCH (08:10)
[2023-08-12] MEDS: Sertraline 50 MG Tab PO SCH (08:11)
[2023-08-12] MEDS: Spironolactone 25 MG Tab PO SCH (08:13)
[2023-08-12] MEDS: Magnesium Oxide 400 MG Tab PO SCH ×2 (09:00→20:50)
[2023-08-12] MEDS: amLODIPine 5 MG Tab PO SCH (09:05)
[2023-08-12] MEDS: LORazepam 1 MG Tab PO SCH ×4 (11:27→18:27)
[2023-08-12] MEDS: LORazepam 2 MG/ML SDV IV SCH (13:48)
[2023-08-12] MEDS: atorvaSTATin 20 MG Tab PO SCH (20:52)
[2023-08-13] MEDS: LORazepam 2 MG/ML SDV IV SCH ×3 (00:07→19:14)
[2023-08-13] MEDS: Insulin Lispro 100 Unit/ML 3 ML KwikPen SUBCUT SCH ×4 (08:03→21:16)
[2023-08-13] MEDS: Gabapentin 400 MG Cap PO SCH (08:05)
[2023-08-13] MEDS: Pantoprazole 40 MG Tab.CR PO SCH (08:08)
[2023-08-13] MEDS: Thiamine 100 MG Tab PO SCH (09:12)
[2023-08-13] MEDS: Spironolactone 25 MG Tab PO SCH (09:12)
[2023-08-13] MEDS: Magnesium Oxide 400 MG Tab PO SCH ×2 (09:12→21:17)
[2023-08-13] MEDS: Rivaroxaban 10 MG Tab PO SCH (09:12)
[2023-08-13] MEDS: amLODIPine 5 MG Tab PO SCH (09:13)
[2023-08-13] MEDS: Metoprolol Tartrate 50 MG Tab PO SCH ×2 (09:13→21:19)
[2023-08-13] MEDS: Alfuzosin 10 MG Tab.ER PO SCH (09:14)
[2023-08-13] MEDS: Sertraline 50 MG Tab PO SCH (09:14)
[2023-08-13] MEDS: Tamsulosin 0.4 MG Cap.ER PO SCH (09:15)
[2023-08-13] MEDS: Lisinopril 20 MG Tab PO SCH (09:15)
[2023-08-13] MEDS: Folic Acid 1 MG Tab PO SCH (09:15)
[2023-08-13] MEDS: Acetaminophen 325 MG Tab PO PRN (12:36)
[2023-08-13] MEDS: LORazepam 1 MG Tab PO SCH ×2 (12:51→14:23)
[2023-08-13] MEDS: Gabapentin 100 MG Cap PO SCH ×2 (14:23→21:16)
[2023-08-13] MEDS: atorvaSTATin 20 MG Tab PO SCH (21:17)
[2023-08-14] MEDS: LORazepam 1 MG Tab PO SCH ×2 (01:07→14:08)
[2023-08-14] MEDS: Insulin Lispro 100 Unit/ML 3 ML KwikPen SUBCUT SCH ×4 (07:24→21:06)
[2023-08-14] MEDS: Pantoprazole 40 MG Tab.CR PO SCH (07:26)
[2023-08-14] MEDS: Folic Acid 1 MG Tab PO SCH (08:39)
[2023-08-14] MEDS: Spironolactone 25 MG Tab PO SCH (08:40)
[2023-08-14] MEDS: Alfuzosin 10 MG Tab.ER PO SCH (08:40)
[2023-08-14] MEDS: Magnesium Oxide 400 MG Tab PO SCH ×2 (08:41→21:08)
[2023-08-14] MEDS: Tamsulosin 0.4 MG Cap.ER PO SCH (08:41)
[2023-08-14] MEDS: Lisinopril 20 MG Tab PO SCH (08:42)
[2023-08-14] MEDS: Gabapentin 100 MG Cap PO SCH ×3 (08:43→21:07)
[2023-08-14] MEDS: Metoprolol Tartrate 50 MG Tab PO SCH ×2 (08:43→21:07)
[2023-08-14] MEDS: Sertraline 50 MG Tab PO SCH (08:44)
[2023-08-14] MEDS: amLODIPine 5 MG Tab PO SCH (08:45)
[2023-08-14] MEDS: Rivaroxaban 10 MG Tab PO SCH (08:46)
[2023-08-14] MEDS: Thiamine 100 MG Tab PO SCH (08:46)
[2023-08-14] MEDS ORDERED: Glucagon,Human Recombinant 1 MG Vial IM PRN (14:54)
[2023-08-14] MEDS ORDERED: 50% Dextrose in Water 50 ML Syringe IVPUSH PRN (14:54)
[2023-08-14] MEDS: LORazepam 2 MG/ML SDV IV SCH ×3 (15:52→21:28)
[2023-08-14] MEDS: atorvaSTATin 20 MG Tab PO SCH (21:07)
[2023-08-14] MEDS: Insulin Glargine,Human Rec. Analog 100 Units/ML 3 ML Pen SUBCUT SCH (21:07)
[2023-08-15] MEDS: LORazepam 1 MG Tab PO SCH (05:13)
[2023-08-15] MEDS: Pantoprazole 40 MG Tab.CR PO SCH (07:16)
[2023-08-15] MEDS: Thiamine 100 MG Tab PO SCH (08:02)
[2023-08-15] MEDS: amLODIPine 5 MG Tab PO SCH (08:03)
[2023-08-15] MEDS: Gabapentin 100 MG Cap PO SCH ×3 (08:03→21:21)
[2023-08-15] MEDS: Rivaroxaban 10 MG Tab PO SCH (08:03)
[2023-08-15] MEDS: Metoprolol Tartrate 50 MG Tab PO SCH ×2 (08:03→21:20)
[2023-08-15] MEDS: Magnesium Oxide 400 MG Tab PO SCH ×2 (08:03→21:21)
[2023-08-15] MEDS: Sertraline 50 MG Tab PO SCH (08:03)
[2023-08-15] MEDS: Tamsulosin 0.4 MG Cap.ER PO SCH (08:04)
[2023-08-15] MEDS: Spironolactone 25 MG Tab PO SCH (08:04)
[2023-08-15] MEDS: Folic Acid 1 MG Tab PO SCH (08:04)
[2023-08-15] MEDS: Lisinopril 20 MG Tab PO SCH (08:04)
[2023-08-15] MEDS: Alfuzosin 10 MG Tab.ER PO SCH (08:04)
[2023-08-15] MEDS: LORazepam 1 MG Tab PO PRN ×3 (12:49→21:34)
[2023-08-15] MEDS: Insulin Glargine,Human Rec. Analog 100 Units/ML 3 ML Pen SUBCUT SCH (21:19)
[2023-08-15] MEDS: atorvaSTATin 20 MG Tab PO SCH (21:20)
[2023-08-16 05:01] LABS: HEMATOCRIT 36.1 % (38.4-49.7); HEMOGLOBIN 11.8 g/dL (12.9-16.9); MEAN CORPUSCULAR HGB CONC 32.7 g/dL (31.6-35.5); MEAN CORPUSCULAR VOLUME 82.6 fL (81.4-99.0); RED BLOOD CELL COUNT 4.37 M/uL (4.14-5.76); WHITE BLOOD CELL COUNT,WBC 5.5 K/uL (3.2-11.0)
[2023-08-16 05:16] LABS: CALCIUM 8.9 mg/dL (8.5-10.1); CREATININE 1.1 mg/dL (0.8-1.3); EST CRCL DRUG DOSING (CG) 67.49 mL/min; POTASSIUM,K 3.5 mmol/L (3.6-5.2)
[2023-08-16 05:18] LABS: ANION GAP 11.5 mmol/L (5.0-14.0)
[2023-08-16] MEDS: Spironolactone 25 MG Tab PO SCH (07:59)
[2023-08-16] MEDS: Tamsulosin 0.4 MG Cap.ER PO SCH (07:59)
[2023-08-16] MEDS: Gabapentin 100 MG Cap PO SCH ×3 (07:59→20:05)
[2023-08-16] MEDS: Metoprolol Tartrate 50 MG Tab PO SCH ×2 (07:59→20:06)
[2023-08-16] MEDS: Lisinopril 20 MG Tab PO SCH (07:59)
[2023-08-16] MEDS: Pantoprazole 40 MG Tab.CR PO SCH (07:59)
[2023-08-16] MEDS: Rivaroxaban 10 MG Tab PO SCH (07:59)
[2023-08-16] MEDS: Alfuzosin 10 MG Tab.ER PO SCH (07:59)
[2023-08-16] MEDS: Folic Acid 1 MG Tab PO SCH (08:00)
[2023-08-16] MEDS: Thiamine 100 MG Tab PO SCH (08:00)
[2023-08-16] MEDS: Sertraline 50 MG Tab PO SCH (08:00)
[2023-08-16] MEDS: Magnesium Oxide 400 MG Tab PO SCH ×2 (08:00→20:05)
[2023-08-16] MEDS: amLODIPine 5 MG Tab PO SCH (08:00)
[2023-08-16] MEDS ORDERED: Potassium Chloride 20 MEQ Tab.ER PO ONE (09:00)
[2023-08-16] MEDS: LORazepam 1 MG Tab PO PRN ×2 (13:27→20:09)
[2023-08-16] MEDS: Insulin Glargine,Human Rec. Analog 100 Units/ML 3 ML Pen SUBCUT SCH (20:03)
[2023-08-16] MEDS: atorvaSTATin 20 MG Tab PO SCH (20:04)
[2023-08-17] MEDS: Pantoprazole 40 MG Tab.CR PO SCH (08:36)
[2023-08-17] MEDS: Sertraline 50 MG Tab PO SCH (08:36)
[2023-08-17] MEDS: Tamsulosin 0.4 MG Cap.ER PO SCH (08:36)
[2023-08-17] MEDS: Alfuzosin 10 MG Tab.ER PO SCH (08:36)
[2023-08-17] MEDS: Thiamine 100 MG Tab PO SCH (08:36)
[2023-08-17] MEDS: Spironolactone 25 MG Tab PO SCH (08:36)
[2023-08-17] MEDS: Rivaroxaban 10 MG Tab PO SCH (08:36)
[2023-08-17] MEDS: amLODIPine 5 MG Tab PO SCH (08:37)
[2023-08-17] MEDS: Gabapentin 100 MG Cap PO SCH ×3 (08:37→20:54)
[2023-08-17] MEDS: Magnesium Oxide 400 MG Tab PO SCH ×2 (08:37→20:54)
[2023-08-17] MEDS: Metoprolol Tartrate 50 MG Tab PO SCH ×2 (08:37→20:54)
[2023-08-17] MEDS: Lisinopril 20 MG Tab PO SCH (08:37)
[2023-08-17] MEDS: Folic Acid 1 MG Tab PO SCH (08:38)
[2023-08-17] MEDS: glipiZIDE 5 MG Tab.ER PO SCH (08:38)
[2023-08-17] MEDS ORDERED: Glucose Gel 15 GM in 37.5 GM Tube PO PRN (13:09)
[2023-08-17] MEDS ORDERED: 50% Dextrose in Water 50 ML Syringe IV PRN (13:09)
[2023-08-17] MEDS: Insulin Lispro 100 Unit/ML 3 ML KwikPen SUBCUT SCH ×2 (17:15→20:55)
[2023-08-17] MEDS: Insulin Glargine,Human Rec. Analog 100 Units/ML 3 ML Pen SUBCUT SCH (20:54)
[2023-08-17] MEDS: atorvaSTATin 20 MG Tab PO SCH (20:54)
[2023-08-18] MEDS: Insulin Lispro 100 Unit/ML 3 ML KwikPen SUBCUT SCH ×4 (07:35→20:55)
[2023-08-18] MEDS: Pantoprazole 40 MG Tab.CR PO SCH (07:41)
[2023-08-18] MEDS: Rivaroxaban 10 MG Tab PO SCH (08:23)
[2023-08-18] MEDS: Tamsulosin 0.4 MG Cap.ER PO SCH (08:23)
[2023-08-18] MEDS: glipiZIDE 5 MG Tab.ER PO SCH (08:23)
[2023-08-18] MEDS: Alfuzosin 10 MG Tab.ER PO SCH (08:24)
[2023-08-18] MEDS: Gabapentin 100 MG Cap PO SCH ×3 (08:24→20:54)
[2023-08-18] MEDS: Metoprolol Tartrate 50 MG Tab PO SCH ×2 (08:24→20:54)
[2023-08-18] MEDS: Sertraline 50 MG Tab PO SCH (08:24)
[2023-08-18] MEDS: Magnesium Oxide 400 MG Tab PO SCH ×2 (08:24→20:54)
[2023-08-18] MEDS: Lisinopril 20 MG Tab PO SCH (08:24)
[2023-08-18] MEDS: Thiamine 100 MG Tab PO SCH (08:25)
[2023-08-18] MEDS: Folic Acid 1 MG Tab PO SCH (08:25)
[2023-08-18] MEDS: Spironolactone 25 MG Tab PO SCH (08:25)
[2023-08-18] MEDS: amLODIPine 5 MG Tab PO SCH (08:25)
[2023-08-18] MEDS: atorvaSTATin 20 MG Tab PO SCH (20:53)
[2023-08-18] MEDS: Insulin Glargine,Human Rec. Analog 100 Units/ML 3 ML Pen SUBCUT SCH (20:54)
[2023-08-19] MEDS: Insulin Lispro 100 Unit/ML 3 ML KwikPen SUBCUT SCH ×4 (07:35→21:22)
[2023-08-19] MEDS: Pantoprazole 40 MG Tab.CR PO SCH (08:29)
[2023-08-19] MEDS: amLODIPine 5 MG Tab PO SCH (08:31)
[2023-08-19] MEDS: Rivaroxaban 10 MG Tab PO SCH (08:31)
[2023-08-19] MEDS: Gabapentin 100 MG Cap PO SCH ×3 (08:32→21:25)
[2023-08-19] MEDS: Tamsulosin 0.4 MG Cap.ER PO SCH (08:32)
[2023-08-19] MEDS: Spironolactone 25 MG Tab PO SCH (08:33)
[2023-08-19] MEDS: Metoprolol Tartrate 50 MG Tab PO SCH ×2 (08:33→21:28)
[2023-08-19] MEDS: Thiamine 100 MG Tab PO SCH (08:33)
[2023-08-19] MEDS: Magnesium Oxide 400 MG Tab PO SCH ×2 (08:33→21:24)
[2023-08-19] MEDS: Folic Acid 1 MG Tab PO SCH (08:33)
[2023-08-19] MEDS: Lisinopril 20 MG Tab PO SCH (08:33)
[2023-08-19] MEDS: Sertraline 50 MG Tab PO SCH (08:33)
[2023-08-19] MEDS: Alfuzosin 10 MG Tab.ER PO SCH (08:34)
[2023-08-19] MEDS: glipiZIDE 5 MG Tab.ER PO SCH (08:34)
[2023-08-19] MEDS: Insulin Glargine,Human Rec. Analog 100 Units/ML 3 ML Pen SUBCUT SCH (21:23)
[2023-08-19] MEDS: atorvaSTATin 20 MG Tab PO SCH (21:24)
[2023-08-20] MEDS: Insulin Lispro 100 Unit/ML 3 ML KwikPen SUBCUT SCH ×4 (08:47→21:10)
[2023-08-20] MEDS: Spironolactone 25 MG Tab PO SCH (08:48)
[2023-08-20] MEDS: Pantoprazole 40 MG Tab.CR PO SCH (08:48)
[2023-08-20] MEDS: Tamsulosin 0.4 MG Cap.ER PO SCH (08:48)
[2023-08-20] MEDS: Folic Acid 1 MG Tab PO SCH (08:49)
[2023-08-20] MEDS: glipiZIDE 5 MG Tab.ER PO SCH (08:49)
[2023-08-20] MEDS: Metoprolol Tartrate 50 MG Tab PO SCH ×2 (08:49→20:01)
[2023-08-20] MEDS: Magnesium Oxide 400 MG Tab PO SCH ×2 (08:50→20:00)
[2023-08-20] MEDS: Gabapentin 100 MG Cap PO SCH ×3 (08:50→20:01)
[2023-08-20] MEDS: amLODIPine 5 MG Tab PO SCH (08:50)
[2023-08-20] MEDS: Naltrexone 50 MG Tab PO SCH (08:50)
[2023-08-20] MEDS: Rivaroxaban 10 MG Tab PO SCH (08:51)
[2023-08-20] MEDS: Lisinopril 20 MG Tab PO SCH (08:51)
[2023-08-20] MEDS: Sertraline 50 MG Tab PO SCH (08:51)
[2023-08-20] MEDS: Alfuzosin 10 MG Tab.ER PO SCH (08:51)
[2023-08-20] MEDS: Thiamine 100 MG Tab PO SCH (08:51)
[2023-08-20] MEDS ORDERED: Calcium Carbonate 500 MG Tab.Chew PO PRN (16:05)
[2023-08-20] MEDS: atorvaSTATin 20 MG Tab PO SCH (19:59)
[2023-08-20] MEDS: Insulin Glargine,Human Rec. Analog 100 Units/ML 3 ML Pen SUBCUT SCH (19:59)
[2023-08-20] MEDS: LORazepam 1 MG Tab PO PRN (20:06)
[2023-08-21] MEDS: Insulin Lispro 100 Unit/ML 3 ML KwikPen SUBCUT SCH ×4 (07:18→21:26)
[2023-08-21] MEDS: Pantoprazole 40 MG Tab.CR PO SCH (07:32)
[2023-08-21] MEDS: Gabapentin 100 MG Cap PO SCH ×3 (08:47→20:27)
[2023-08-21] MEDS: amLODIPine 5 MG Tab PO SCH (08:47)
[2023-08-21] MEDS: Spironolactone 25 MG Tab PO SCH (08:47)
[2023-08-21] MEDS: glipiZIDE 5 MG Tab.ER PO SCH (08:47)
[2023-08-21] MEDS: Magnesium Oxide 400 MG Tab PO SCH ×2 (08:47→20:27)
[2023-08-21] MEDS: Naltrexone 50 MG Tab PO SCH (08:48)
[2023-08-21] MEDS: Metoprolol Tartrate 50 MG Tab PO SCH ×2 (08:48→20:26)
[2023-08-21] MEDS: Lisinopril 20 MG Tab PO SCH (08:48)
[2023-08-21] MEDS: Rivaroxaban 10 MG Tab PO SCH (08:48)
[2023-08-21] MEDS: Thiamine 100 MG Tab PO SCH (08:48)
[2023-08-21] MEDS: Folic Acid 1 MG Tab PO SCH (08:48)
[2023-08-21] MEDS: Alfuzosin 10 MG Tab.ER PO SCH (08:49)
[2023-08-21] MEDS: Tamsulosin 0.4 MG Cap.ER PO SCH (08:49)
[2023-08-21] MEDS: Sertraline 50 MG Tab PO SCH (08:49)
[2023-08-21] MEDS: atorvaSTATin 20 MG Tab PO SCH (20:27)
[2023-08-21] MEDS: LORazepam 1 MG Tab PO PRN (21:25)
[2023-08-21] MEDS: Insulin Glargine,Human Rec. Analog 100 Units/ML 3 ML Pen SUBCUT SCH (21:26)
[2023-08-22] MEDS: Insulin Lispro 100 Unit/ML 3 ML KwikPen SUBCUT SCH ×4 (07:31→21:48)
[2023-08-22] MEDS: Thiamine 100 MG Tab PO SCH (07:59)
[2023-08-22] MEDS: Pantoprazole 40 MG Tab.CR PO SCH (07:59)
[2023-08-22] MEDS: Naltrexone 50 MG Tab PO SCH (08:00)
[2023-08-22] MEDS: Magnesium Oxide 400 MG Tab PO SCH ×2 (08:00→21:42)
[2023-08-22] MEDS: Alfuzosin 10 MG Tab.ER PO SCH (08:00)
[2023-08-22] MEDS: Sertraline 50 MG Tab PO SCH (08:00)
[2023-08-22] MEDS: Folic Acid 1 MG Tab PO SCH (08:00)
[2023-08-22] MEDS: Rivaroxaban 10 MG Tab PO SCH (08:01)
[2023-08-22] MEDS: Spironolactone 25 MG Tab PO SCH (08:01)
[2023-08-22] MEDS: Gabapentin 100 MG Cap PO SCH ×4 (08:01→21:43)
[2023-08-22] MEDS: glipiZIDE 5 MG Tab.ER PO SCH (08:01)
[2023-08-22] MEDS: Metoprolol Tartrate 50 MG Tab PO SCH ×2 (08:01→21:47)
[2023-08-22] MEDS: Tamsulosin 0.4 MG Cap.ER PO SCH (08:01)
[2023-08-22] MEDS: Lisinopril 20 MG Tab PO SCH (08:02)
[2023-08-22] MEDS: amLODIPine 5 MG Tab PO SCH (08:02)
[2023-08-22] MEDS: Melatonin 3 MG Tab PO SCH (21:42)
[2023-08-22] MEDS: atorvaSTATin 20 MG Tab PO SCH (21:42)
[2023-08-22] MEDS: Insulin Glargine,Human Rec. Analog 100 Units/ML 3 ML Pen SUBCUT SCH (21:52)
[2023-08-23 06:01] LABS: HEMATOCRIT 30.9 % (38.4-49.7); HEMOGLOBIN 10.2 g/dL (12.9-16.9); MEAN CORPUSCULAR HEMOGLOBIN 27.1 pg (31.6-35.5); RED BLOOD CELL COUNT 3.77 M/uL (4.14-5.76); WHITE BLOOD CELL COUNT,WBC 6.2 K/uL (3.2-11.0)
[2023-08-23 06:12] LABS: CALCIUM 8.6 mg/dL (8.5-10.1); CREATININE 1.4 mg/dL (0.8-1.3); EST CRCL DRUG DOSING (CG) 53.01 mL/min; POTASSIUM,K 3.9 mmol/L (3.6-5.2)
[2023-08-23 06:19] LABS: ANION GAP 12.9 mmol/L (5.0-14.0)
[2023-08-23] MEDS: Alfuzosin 10 MG Tab.ER PO SCH (08:02)
[2023-08-23] MEDS: Spironolactone 25 MG Tab PO SCH (08:02)
[2023-08-23] MEDS: Tamsulosin 0.4 MG Cap.ER PO SCH (08:02)
[2023-08-23] MEDS: Sertraline 50 MG Tab PO SCH (08:02)
[2023-08-23] MEDS: Magnesium Oxide 400 MG Tab PO SCH ×2 (08:03→21:10)
[2023-08-23] MEDS: Naltrexone 50 MG Tab PO SCH (08:03)
[2023-08-23] MEDS: glipiZIDE 5 MG Tab.ER PO SCH (08:03)
[2023-08-23] MEDS: Gabapentin 100 MG Cap PO SCH ×3 (08:03→21:11)
[2023-08-23] MEDS: Rivaroxaban 10 MG Tab PO SCH (08:03)
[2023-08-23] MEDS: Pantoprazole 40 MG Tab.CR PO SCH (08:04)
[2023-08-23] MEDS: Thiamine 100 MG Tab PO SCH (08:04)
[2023-08-23] MEDS: Lisinopril 20 MG Tab PO SCH (08:04)
[2023-08-23] MEDS: amLODIPine 5 MG Tab PO SCH (08:04)
[2023-08-23] MEDS: Folic Acid 1 MG Tab PO SCH (08:05)
[2023-08-23] MEDS: Metoprolol Tartrate 50 MG Tab PO SCH ×2 (08:05→21:09)
[2023-08-23] MEDS: Insulin Lispro 100 Unit/ML 3 ML KwikPen SUBCUT SCH ×4 (08:09→21:16)
[2023-08-23] MEDS: atorvaSTATin 20 MG Tab PO SCH (21:08)
[2023-08-23] MEDS: Melatonin 3 MG Tab PO SCH (21:09)
[2023-08-23] MEDS: Insulin Glargine,Human Rec. Analog 100 Units/ML 3 ML Pen SUBCUT SCH (21:17)
[2023-08-24] MEDS: Insulin Lispro 100 Unit/ML 3 ML KwikPen SUBCUT SCH ×2 (07:33→11:46)
[2023-08-24] MEDS: Pantoprazole 40 MG Tab.CR PO SCH (07:41)
[2023-08-24] MEDS: Thiamine 100 MG Tab PO SCH (08:48)
[2023-08-24] MEDS: Sertraline 50 MG Tab PO SCH (08:48)
[2023-08-24] MEDS: Rivaroxaban 10 MG Tab PO SCH (08:48)
[2023-08-24] MEDS: glipiZIDE 5 MG Tab.ER PO SCH (08:48)
[2023-08-24] MEDS: Folic Acid 1 MG Tab PO SCH (08:48)
[2023-08-24] MEDS: Magnesium Oxide 400 MG Tab PO SCH (08:48)
[2023-08-24] MEDS: Spironolactone 25 MG Tab PO SCH (08:48)
[2023-08-24] MEDS: Alfuzosin 10 MG Tab.ER PO SCH (08:49)
[2023-08-24] MEDS: Tamsulosin 0.4 MG Cap.ER PO SCH (08:49)
[2023-08-24] MEDS: Lisinopril 20 MG Tab PO SCH (08:49)
[2023-08-24] MEDS: Gabapentin 100 MG Cap PO SCH ×2 (08:49→14:07)
[2023-08-24] MEDS: Metoprolol Tartrate 50 MG Tab PO SCH (08:49)
[2023-08-24] MEDS: Naltrexone 50 MG Tab PO SCH (08:49)
[2023-08-24] MEDS: amLODIPine 5 MG Tab PO SCH (08:50)
[2023-08-24 11:30] VITALS: PULSE 58
[2023-08-24 14:09] VITALS: BP 106/46
== END 2023-08-24 15:00 | disposition home health service (06) | DRG 897 ==
LOC: JP.ED 11:14 → JP.ICU 12:53 → JP.MS 08-15 10:54
PROVIDERS: ADMIT Hospitalist; ATTEND Internal Medicine
DX: F10.131 Alcohol abuse with withdrawal delirium (principal); N17.9 Acute kidney failure, unspecified; K50.90 Crohn's disease, unspecified, without complications; I48.20 Chronic atrial fibrillation, unspecified; E83.42 Hypomagnesemia; N18.31 Chronic kidney disease, stage 3a; Z11.52 Encounter for screening for COVID-19; I12.9 Hypertensive chronic kidney disease with stage 1 through stage 4 chronic kidney disease, or unspecified chronic kidney disease; K59.09 Other constipation; E11.9 Type 2 diabetes mellitus without complications; E86.0 Dehydration; F41.9 Anxiety disorder, unspecified; H91.90 Unspecified hearing loss, unspecified ear; I10 Essential (primary) hypertension; E87.6 Hypokalemia; I25.10 Atherosclerotic heart disease of native coronary artery without angina pectoris; G47.33 Obstructive sleep apnea (adult) (pediatric); E11.22 Type 2 diabetes mellitus with diabetic chronic kidney disease; E78.00 Pure hypercholesterolemia, unspecified; E11.42 Type 2 diabetes mellitus with diabetic polyneuropathy; Z88.0 Allergy status to penicillin; M10.9 Gout, unspecified; Z88.1 Allergy status to other antibiotic agents; Z97.3 Presence of spectacles and contact lenses; K21.9 Gastro-esophageal reflux disease without esophagitis; E66.9 Obesity, unspecified; Z68.30 Body mass index [BMI] 30.0-30.9, adult; Z85.828 Personal history of other malignant neoplasm of skin; Z90.89 Acquired absence of other organs; Z90.49 Acquired absence of other specified parts of digestive tract; Z98.890 Other specified postprocedural states; N40.0 Benign prostatic hyperplasia without lower urinary tract symptoms; Z83.3 Family history of diabetes mellitus; Z79.4 Long term (current) use of insulin; Z79.01 Long term (current) use of anticoagulants; Z79.899 Other long term (current) drug therapy; Z95.5 Presence of coronary angioplasty implant and graft
CPT/HCPCS: 0241U; 36415; 70450; 80048; 80053; 80307; 82140; 82947; 83605; 83735; 84145; 85025; 85027; 93010; 97110; 97116; 97161; 97165; 97530; 99223; 99232; 99233; 99239; 99285; A9270-GY; J1815; J1815-GY; J2060; J3411; J3475; J3490; J7030

== ENCOUNTER 2023-12-31 19:39 | Emergency (ER) | payer MEDICARE, OTHER ==
[2023-12-31 20:31] LABS: BASOPHILS ABSOLUTE AUTO 0.02 K/uL (0.00-0.10); BASOPHILS PERCENT AUTO 0.3 % (0.1-1.3); EOSINOPHILS ABSOLUTE AUTO 0.03 K/uL (0.00-0.40); EOSINOPHILS PERCENT AUTO 0.4 % (0.0-5.4); HEMATOCRIT 27.3 % (38.4-49.7); HEMOGLOBIN 8.7 g/dL (12.9-16.9); IMMATURE GRAN ABSOLUTE AUTO 0.04 K/uL (0.00-0.23); IMMATURE GRAN PERCENT AUTO 0.5 % (0.0-0.7); LYMPHOCYTES ABSOLUTE AUTO 0.26 K/uL (0.8-3.3); LYMPHOCYTES PERCENT AUTO 3.3 % (11.4-47.7); MEAN CORPUSCULAR HEMOGLOBIN 23.8 pg (31.6-35.5); MEAN CORPUSCULAR HGB CONC 31.9 g/dL (31.6-35.5); MEAN CORPUSCULAR VOLUME 74.6 fL (81.4-99.0); MONOCYTES ABSOLUTE AUTO 0.63 K/uL (0.20-0.90); MONOCYTES PERCENT AUTO 8.1 % (3.3-12.6); NEUTROPHILS ABSOLUTE AUTO 6.83 K/uL (1.0-7.6); NEUTROPHILS PERCENT AUTO 87.4 % (40.0-78.1); PLATELET COUNT,PLT 156 K/uL (130-375); RED BLOOD CELL COUNT 3.66 M/uL (4.14-5.76); WHITE BLOOD CELL COUNT,WBC 7.8 K/uL (3.2-11.0)
[2023-12-31] MEDS: Alum Hydrox/Mag Hydrox/Simeth 15 ML, Lidocaine 2% 15 ML PO ONE (20:48)
[2023-12-31] MEDS: Ondansetron 4 MG/2 ML SDV IVPUSH ONE (20:48)
[2023-12-31 20:51] LABS: ALANINE AMINOTRANSFERASE,ALT 142 U/L (12-78); ALBUMIN 3.3 g/dL (3.4-5.0); ALKALINE PHOSPHATASE 267 U/L (46-116); ASPARTATE AMNIOTRANSFERASE,AST 349 U/L (15-37); BILIRUBIN TOTAL 1.9 mg/dL (0.2-1.0); BLOOD UREA NITROGEN,BUN 15 mg/dL (7-18); C-REACTIVE PROTEIN 0.81 mg/dL (<0.50); CALCIUM 8.9 mg/dL (8.5-10.1); CARBON DIOXIDE,CO2 24 mmol/L (21-32); CHLORIDE,CL 101 mmol/L (100-108); CREATININE 1.6 mg/dL (0.8-1.3); EST CRCL DRUG DOSING (CG) 46.38 mL/min; ESTIMATED GFR 45 mL/min (>60); GLUCOSE RANDOM 154 mg/dL (74-106); PROTEIN TOTAL,TP 6.5 g/dL (6.4-8.2); SODIUM,NA 135 mmol/L (140-148)
[2023-12-31 21:11] LABS: CORONAVIRUS COVID-19 NAA NEGATIVE (NEGATIVE); INFLUENZA A NAA NEGATIVE (NEGATIVE); INFLUENZA B NAA NEGATIVE (NEGATIVE); RESPIRATORY SYNCYTIAL VIR NAA NEGATIVE (NEGATIVE)
[2024-01-01 02:08] VITALS: BP 152/73; PULSE 70
== END 2024-01-01 02:37 | disposition other institution (70) ==
LOC: JP.ED 19:39
DX: K80.50 Calculus of bile duct without cholangitis or cholecystitis without obstruction (principal); I10 Essential (primary) hypertension; E78.00 Pure hypercholesterolemia, unspecified; I48.91 Unspecified atrial fibrillation; I25.10 Atherosclerotic heart disease of native coronary artery without angina pectoris; Z95.5 Presence of coronary angioplasty implant and graft; E11.9 Type 2 diabetes mellitus without complications; Z79.899 Other long term (current) drug therapy; Z88.1 Allergy status to other antibiotic agents; Z88.0 Allergy status to penicillin; Z79.4 Long term (current) use of insulin; Z79.01 Long term (current) use of anticoagulants; Z79.82 Long term (current) use of aspirin; Z79.84 Long term (current) use of oral hypoglycemic drugs
CPT/HCPCS: 0241U; 36415; 74176; 80053; 83605; 83690; 85025; 86140; 96374; 99285; A9270; J2405; 99284

== ENCOUNTER 2024-07-11 09:43 | Inpatient (IN) | payer MEDICARE, OTHER ==
[2024-07-11 10:42] LABS: BASOPHILS ABSOLUTE AUTO 0.05 K/uL (0.00-0.10); BASOPHILS PERCENT AUTO 0.6 % (0.1-1.3); EOSINOPHILS ABSOLUTE AUTO 0.08 K/uL (0.00-0.40); EOSINOPHILS PERCENT AUTO 0.9 % (0.0-5.4); IMMATURE GRAN ABSOLUTE AUTO 0.06 K/uL (0.00-0.23); IMMATURE GRAN PERCENT AUTO 0.7 % (0.0-0.7); LYMPHOCYTES PERCENT AUTO 10.2 % (11.4-47.7); MEAN CORPUSCULAR HEMOGLOBIN 19.3 pg (31.6-35.5); MEAN CORPUSCULAR HGB CONC 27.4 g/dL (31.6-35.5); MEAN CORPUSCULAR VOLUME 70.6 fL (81.4-99.0); MONOCYTES ABSOLUTE AUTO 0.47 K/uL (0.20-0.90); MONOCYTES PERCENT AUTO 5.3 % (3.3-12.6); NEUTROPHILS ABSOLUTE AUTO 7.25 K/uL (1.0-7.6); NEUTROPHILS PERCENT AUTO 82.3 % (40.0-78.1); PLATELET COUNT,PLT 174 K/uL (130-375); RED BLOOD CELL COUNT 3.26 M/uL (4.14-5.76); WHITE BLOOD CELL COUNT,WBC 8.8 K/uL (3.2-11.0)
[2024-07-11 10:48] LABS: INR 1.7; PROTHROMBIN TIME 16.8 sec (9.2-10.6)
[2024-07-11 10:54] LABS: A/G RATIO 0.8 (1.2-2.2); ALANINE AMINOTRANSFERASE,ALT 26 U/L (12-78); ALBUMIN 3.2 g/dL (3.4-5.0); ALKALINE PHOSPHATASE 183 U/L (46-116); ASPARTATE AMNIOTRANSFERASE,AST 19 U/L (15-37); BILIRUBIN TOTAL 0.9 mg/dL (0.2-1.0); BLOOD UREA NITROGEN,BUN 17 mg/dL (7-18); CALCIUM 9.2 mg/dL (8.5-10.1); CARBON DIOXIDE,CO2 24 mmol/L (21-32); CHLORIDE,CL 102 mmol/L (100-108); EST CRCL DRUG DOSING (CG) 36.53 mL/min; ESTIMATED GFR 34 mL/min (>60); GLUCOSE RANDOM 223 mg/dL (74-106); POTASSIUM,K 5.2 mmol/L (3.6-5.2); SODIUM,NA 137 mmol/L (140-148)
[2024-07-11 10:55] LABS: ANION GAP 16.2 mmol/L (5.0-14.0)
[2024-07-11 10:59] LABS: HEMOGLOBIN 6.3 g/dL (12.9-16.9)
[2024-07-11] MEDS: Meclizine 25 MG Tab PO ONE (11:00)
[2024-07-11] MEDS: Sodium Chloride 0.9% 1,000 ML IV ONE ×2 (11:00→12:56)
[2024-07-11] MEDS: Iopamidol 612 MG/ML 100 ML Bottle IV PRN (11:15)
[2024-07-11] MEDS: Sodium Chloride 0.9% 80 ML IV SCH (11:15)
[2024-07-11] MEDS: Sodium Chloride 0.9% 10 ML Syringe FLUSH PRN (11:15)
[2024-07-11 11:35] LABS: CORONAVIRUS COVID-19 NAA NEGATIVE (NEGATIVE); INFLUENZA A NAA NEGATIVE (NEGATIVE); INFLUENZA B NAA NEGATIVE (NEGATIVE); RESPIRATORY SYNCYTIAL VIR NAA NEGATIVE (NEGATIVE)
[2024-07-11 12:59] LABS: IRON,FE 13 ug/dL (65-175); PERCENT FE SATURATION 3 % (20-55); TOTAL IRON BINDING CAPACITY 442 ug/dl (250-450)
[2024-07-11] MEDS: cefTRIAXone 2 GM in Sodium Chloride 0.9% 50 ML IV ONE (12:59)
[2024-07-11 13:17] LABS: RETICULOCYTE COUNT PERCENT 3.22 % (0.03-0.11)
[2024-07-11] MEDS ORDERED: diphenhydrAMINE 25 MG Cap PO PRN (15:14)
[2024-07-11] MEDS ORDERED: COLESEVELAM 625 MG PO SCH (15:14)
[2024-07-11] MEDS ORDERED: Benzonatate 100 MG Cap PO PRN (15:14)
[2024-07-11] MEDS ORDERED: Ondansetron 4 MG Tab.DIS PO PRN (15:14)
[2024-07-11] MEDS: Azithromycin 250 MG Tab PO SCH (16:05)
[2024-07-11] MEDS: Cholestyramine/Sucrose Powder 4 GM Packet PO SCH (16:05)
[2024-07-11] MEDS: Insulin Lispro 100 Unit/ML 3 ML KwikPen SUBCUT SCH (16:53)
[2024-07-11 17:38] LABS: APPEARANCE,URINE CLEAR (CLEAR); BILIRUBIN,URINE NEGATIVE (NEGATIVE); COLOR,URINE YELLOW (YELLOW); GLUCOSE,URINE NEGATIVE (NEGATIVE); KETONES,URINE NEGATIVE (NEGATIVE); LEUKOCYTE ESTERASE,URINE TRACE (NEGATIVE); NITRITE,URINE NEGATIVE (NEGATIVE); OCCULT BLOOD,URINE NEGATIVE (NEGATIVE); PROTEIN,URINE NEGATIVE (NEGATIVE); UROBILINOGEN,URINE 0.2 EU/dL (0.2-1.0)
[2024-07-11 17:49] LABS: AMORPHOUS SEDIMENT,URINE NOT SEEN; BACTERIA,URINE FEW; EPITHELIAL CELLS,URINE FEW; MUCUS,URINE NOT SEEN; RBC,URINE NOT SEEN (0-5); WBC,URINE 30-40 (0-5)
[2024-07-11] MEDS: Metoprolol Tartrate 50 MG Tab PO SCH (20:02)
[2024-07-11] MEDS: LORazepam 1 MG Tab PO PRN (20:02)
[2024-07-11] MEDS: Lactobacillus Rhamnosus GG (Probiotic) Cap PO SCH (20:03)
[2024-07-11] MEDS: atorvaSTATin 20 MG Tab PO SCH (20:03)
[2024-07-11] MEDS: Gabapentin 300 MG Cap PO SCH (20:03)
[2024-07-11] MEDS ORDERED: atorvaSTATin 10 MG Tab PO SCH (21:00)
[2024-07-11] MEDS: Insulin Glargine,Human Rec. Analog 100 Units/ML 3 ML Pen SUBCUT SCH (21:10)
[2024-07-11] MEDS: Ondansetron 4 MG/2 ML SDV IV PRN (23:36)
[2024-07-11] MEDS: Haloperidol Lactate 5 MG/ML SDV IVPUSH PRN (23:43)
[2024-07-11] MEDS: Albuterol 0.083% 2.5 MG/3 ML Neb Soln NEB PRN (23:56)
[2024-07-12] MEDS: LORazepam 1 MG Tab PO PRN ×2 (01:03→10:55)
[2024-07-12 06:35] LABS: HEMATOCRIT 27.5 % (38.4-49.7); HEMOGLOBIN 7.9 g/dL (12.9-16.9); MEAN CORPUSCULAR HEMOGLOBIN 21.1 pg (31.6-35.5); MEAN CORPUSCULAR HGB CONC 28.7 g/dL (31.6-35.5); MEAN CORPUSCULAR VOLUME 73.3 fL (81.4-99.0); WHITE BLOOD CELL COUNT,WBC 9.7 K/uL (3.2-11.0)
[2024-07-12 06:55] LABS: A/G RATIO 0.8 (1.2-2.2); ALANINE AMINOTRANSFERASE,ALT 21 U/L (12-78); ALKALINE PHOSPHATASE 166 U/L (46-116); ANION GAP 11.1 mmol/L (5.0-14.0); ASPARTATE AMNIOTRANSFERASE,AST 15 U/L (15-37); BLOOD UREA NITROGEN,BUN 15 mg/dL (7-18); CARBON DIOXIDE,CO2 25 mmol/L (21-32); CHLORIDE,CL 104 mmol/L (100-108); CREATININE 1.6 mg/dL (0.8-1.3); EST CRCL DRUG DOSING (CG) 45.67 mL/min; ESTIMATED GFR 44 mL/min (>60); GLUCOSE RANDOM 146 mg/dL (74-106); MAGNESIUM 1.4 mg/dL (1.8-2.4); POTASSIUM,K 5.2 mmol/L (3.6-5.2); PROTEIN TOTAL,TP 6.7 g/dL (6.4-8.2); SODIUM,NA 140 mmol/L (140-148)
[2024-07-12 07:02] LABS: RED BLOOD CELL COUNT 3.75 M/uL (4.14-5.76)
[2024-07-12] MEDS: Pantoprazole 40 MG Tab.CR PO SCH (07:52)
[2024-07-12] MEDS: Spironolactone 25 MG Tab PO SCH (08:51)
[2024-07-12] MEDS: Naltrexone 50 MG Tab PO SCH (08:52)
[2024-07-12] MEDS: Sertraline 50 MG Tab PO SCH (08:58)
[2024-07-12] MEDS: Aspirin 81 MG Tab.EC PO SCH (08:59)
[2024-07-12] MEDS: Alfuzosin 10 MG Tab.ER PO SCH (09:01)
[2024-07-12] MEDS: Magnesium Sulfate/Water Premix 2 GM in Premix Bag 1 BAG IV SCH ×2 (09:26→20:06)
[2024-07-12] MEDS: Acetaminophen 325 MG Tab PO PRN (10:46)
[2024-07-12] MEDS: Folic Acid 1 MG Tab PO SCH (10:46)
[2024-07-12] MEDS: Thiamine 100 MG Tab PO SCH (10:46)
[2024-07-12] MEDS: cefTRIAXone 2 GM in Sodium Chloride 0.9% 50 ML IV SCH (11:50)
[2024-07-12] MEDS: Sodium Ferric Gluconate Cmplex 250 MG in Sodium Chloride 0.9% 100 ML IV ONE (13:54)
[2024-07-12] MEDS: LORazepam 2 MG/ML SDV IV PRN (15:16)
[2024-07-12] MEDS: COLESTIPOL 1 GM PO SCH (19:56)
[2024-07-13 05:33] LABS: HEMATOCRIT 25.7 % (38.4-49.7); HEMOGLOBIN 7.3 g/dL (12.9-16.9); MEAN CORPUSCULAR HGB CONC 28.4 g/dL (31.6-35.5); MEAN CORPUSCULAR VOLUME 74.1 fL (81.4-99.0); RED BLOOD CELL COUNT 3.47 M/uL (4.14-5.76); WHITE BLOOD CELL COUNT,WBC 8.3 K/uL (3.2-11.0)
[2024-07-13 05:50] LABS: A/G RATIO 0.8 (1.2-2.2); ALANINE AMINOTRANSFERASE,ALT 16 U/L (12-78); ALBUMIN 2.6 g/dL (3.4-5.0); ALKALINE PHOSPHATASE 143 U/L (46-116); ANION GAP 6.2 mmol/L (5.0-14.0); ASPARTATE AMNIOTRANSFERASE,AST 14 U/L (15-37); BILIRUBIN TOTAL 0.8 mg/dL (0.2-1.0); BLOOD UREA NITROGEN,BUN 12 mg/dL (7-18); CALCIUM 9.1 mg/dL (8.5-10.1); CARBON DIOXIDE,CO2 29 mmol/L (21-32); CHLORIDE,CL 107 mmol/L (100-108); CREATININE 1.4 mg/dL (0.8-1.3); EST CRCL DRUG DOSING (CG) 52.19 mL/min; ESTIMATED GFR 52 mL/min (>60); GLUCOSE RANDOM 99 mg/dL (74-106); POTASSIUM,K 4.6 mmol/L (3.6-5.2); SODIUM,NA 142 mmol/L (140-148)
[2024-07-13] MEDS: Albuterol 0.083% 2.5 MG/3 ML Neb Soln NEB SCH (10:39)
[2024-07-14 06:07] LABS: HEMATOCRIT 26.9 % (38.4-49.7); HEMOGLOBIN 7.6 g/dL (12.9-16.9); MEAN CORPUSCULAR HEMOGLOBIN 21.4 pg (31.6-35.5); MEAN CORPUSCULAR HGB CONC 28.3 g/dL (31.6-35.5); MEAN CORPUSCULAR VOLUME 75.8 fL (81.4-99.0); RED BLOOD CELL COUNT 3.55 M/uL (4.14-5.76); WHITE BLOOD CELL COUNT,WBC 8.6 K/uL (3.2-11.0)
[2024-07-14 06:22] LABS: ANION GAP 8.4 mmol/L (5.0-14.0); C-REACTIVE PROTEIN 9.59 mg/dL (<0.50); CREATININE 1.3 mg/dL (0.8-1.3); EST CRCL DRUG DOSING (CG) 56.21 mL/min; POTASSIUM,K 4.4 mmol/L (3.6-5.2)
[2024-07-15 05:26] LABS: CALCIUM 9.2 mg/dL (8.5-10.1); CREATININE 1.1 mg/dL (0.8-1.3); EST CRCL DRUG DOSING (CG) 66.42 mL/min; MAGNESIUM 1.7 mg/dL (1.8-2.4); POTASSIUM,K 4.4 mmol/L (3.6-5.2)
[2024-07-15 05:29] LABS: HEMATOCRIT 25.7 % (38.4-49.7); HEMOGLOBIN 7.4 g/dL (12.9-16.9); MEAN CORPUSCULAR HEMOGLOBIN 21.8 pg (31.6-35.5); MEAN CORPUSCULAR HGB CONC 28.8 g/dL (31.6-35.5); MEAN CORPUSCULAR VOLUME 75.6 fL (81.4-99.0); RED BLOOD CELL COUNT 3.4 M/uL (4.14-5.76); WHITE BLOOD CELL COUNT,WBC 8.8 K/uL (3.2-11.0)
[2024-07-15 05:41] LABS: ANION GAP 12.4 mmol/L (5.0-14.0)
[2024-07-15] MEDS: Magnesium Sulfate/Water Premix 2 GM in Premix Bag 1 BAG IV ONE (08:48)
[2024-07-15] MEDS: Sodium Ferric Gluconate Cmplex 250 MG in Sodium Chloride 0.9% 100 ML IV ONE (13:25)
[2024-07-16] MEDS: Doxycycline 100 MG in Sodium Chloride 0.9% 100 ML IV SCH (11:39)
[2024-07-16] MEDS: Insulin Lispro 100 Unit/ML 3 ML KwikPen SUBCUT SCH (17:28)
[2024-07-17 04:50] LABS: HEMATOCRIT 30.3 % (38.4-49.7); HEMOGLOBIN 8.9 g/dL (12.9-16.9); MEAN CORPUSCULAR HEMOGLOBIN 22.1 pg (31.6-35.5); MEAN CORPUSCULAR HGB CONC 29.4 g/dL (31.6-35.5); MEAN CORPUSCULAR VOLUME 75.2 fL (81.4-99.0); RED BLOOD CELL COUNT 4.03 M/uL (4.14-5.76); WHITE BLOOD CELL COUNT,WBC 9.6 K/uL (3.2-11.0)
[2024-07-17 05:17] LABS: A/G RATIO 0.7 (1.2-2.2); ALANINE AMINOTRANSFERASE,ALT 35 U/L (12-78); ALBUMIN 2.7 g/dL (3.4-5.0); ALKALINE PHOSPHATASE 178 U/L (46-116); ASPARTATE AMNIOTRANSFERASE,AST 36 U/L (15-37); BILIRUBIN TOTAL 1.3 mg/dL (0.2-1.0); BLOOD UREA NITROGEN,BUN 8 mg/dL (7-18); C-REACTIVE PROTEIN 9.35 mg/dL (<0.50); CALCIUM 9.5 mg/dL (8.5-10.1); CARBON DIOXIDE,CO2 26 mmol/L (21-32); CHLORIDE,CL 101 mmol/L (100-108); EST CRCL DRUG DOSING (CG) 73.07 mL/min; ESTIMATED GFR 78 mL/min (>60); GLUCOSE RANDOM 133 mg/dL (74-106); POTASSIUM,K 4.3 mmol/L (3.6-5.2); PROTEIN TOTAL,TP 6.8 g/dL (6.4-8.2); SODIUM,NA 138 mmol/L (140-148)
[2024-07-17 05:22] LABS: ANION GAP 15.3 mmol/L (5.0-14.0)
[2024-07-17] MEDS: traMADol 50 MG Tab PO PRN (17:29)
[2024-07-18] MEDS: guaiFENesin/Dextromethorphan 100-10 MG/5 ML Soln 10 ML Cup PO PRN (03:31)
[2024-07-19 06:03] LABS: CALCIUM 9.5 mg/dL (8.5-10.1); CREATININE 1.1 mg/dL (0.8-1.3); EST CRCL DRUG DOSING (CG) 66.42 mL/min; MAGNESIUM 1.6 mg/dL (1.8-2.4)
[2024-07-19] MEDS: Magnesium Sulfate/Water Premix 2 GM in Premix Bag 1 BAG IV SCH (09:07)
[2024-07-19] MEDS: Magnesium Oxide 400 MG Tab PO SCH (09:11)
[2024-07-20 05:53] LABS: CALCIUM 9.8 mg/dL (8.5-10.1); CREATININE 1.2 mg/dL (0.8-1.3); EST CRCL DRUG DOSING (CG) 60.89 mL/min; MAGNESIUM 2.3 mg/dL (1.8-2.4); POTASSIUM,K 3.9 mmol/L (3.6-5.2)
[2024-07-20 05:56] LABS: ANION GAP 14.9 mmol/L (5.0-14.0)
[2024-07-20] MEDS: Sodium Chloride 0.9% 10 ML Syringe IV PRN (14:50)
[2024-07-20] MEDS: Rivaroxaban 10 MG Tab PO SCH (16:52)
[2024-07-20] MEDS: Atropine/Diphenoxylate 0.025-2.5 MG Tab PO PRN (20:23)
[2024-07-21] MEDS ORDERED: 50% Dextrose in Water 50 ML Syringe IVPUSH PRN (13:20)
[2024-07-21] MEDS ORDERED: Glucagon,Human Recombinant 1 MG Vial IM PRN (13:20)
[2024-07-21] MEDS: Lisinopril 10 MG Tab PO SCH (13:49)
[2024-07-21] MEDS: Insulin Glargine,Human Rec. Analog 100 Units/ML 3 ML Pen SUBCUT SCH (21:34)
[2024-07-22] MEDS ORDERED: Zinc Oxide 20% Oint 56.7 GM Tube TOP PRN (13:50)
[2024-07-22] MEDS ORDERED: Dimethicone 20%/Zinc Oxide 25% 56 GM Spray Bottle TOP PRN (13:52)
[2024-07-22] MEDS: Insulin Glargine,Human Rec. Analog 100 Units/ML 3 ML Pen SUBCUT SCH (21:31)
[2024-07-23] MEDS: Insulin Glargine,Human Rec. Analog 100 Units/ML 3 ML Pen SUBCUT SCH (21:00)
[2024-07-25 09:15] VITALS: PULSE 56
[2024-07-25 11:23] VITALS: BP 142/60
== END 2024-07-25 12:10 | disposition home or self-care (01) | DRG 871 ==
LOC: JP.ED 09:43 → JP.MS 13:00 → JP.ICU 07-12 10:30 → JP.MS 07-21 09:33
PROVIDERS: ADMIT Internal Medicine; ATTEND Internal Medicine
DX: A41.9 Sepsis, unspecified organism (principal); R06.02 Shortness of breath; J18.9 Pneumonia, unspecified organism; J96.01 Acute respiratory failure with hypoxia; R74.02 Elevation of levels of lactic acid dehydrogenase [LDH]; I10 Essential (primary) hypertension; K50.90 Crohn's disease, unspecified, without complications; I48.20 Chronic atrial fibrillation, unspecified; E66.9 Obesity, unspecified; E11.9 Type 2 diabetes mellitus without complications; K92.1 Melena; I48.92 Unspecified atrial flutter; F10.239 Alcohol dependence with withdrawal, unspecified; F10.221 Alcohol dependence with intoxication delirium; N17.9 Acute kidney failure, unspecified; Z90.49 Acquired absence of other specified parts of digestive tract; Z68.31 Body mass index [BMI] 31.0-31.9, adult; R65.20 Severe sepsis without septic shock; K59.09 Other constipation; E78.00 Pure hypercholesterolemia, unspecified; I25.10 Atherosclerotic heart disease of native coronary artery without angina pectoris; K21.9 Gastro-esophageal reflux disease without esophagitis; F41.9 Anxiety disorder, unspecified; M19.90 Unspecified osteoarthritis, unspecified site; M10.9 Gout, unspecified; H54.7 Unspecified visual loss; H91.90 Unspecified hearing loss, unspecified ear; N18.32 Chronic kidney disease, stage 3b; I12.9 Hypertensive chronic kidney disease with stage 1 through stage 4 chronic kidney disease, or unspecified chronic kidney disease; E11.22 Type 2 diabetes mellitus with diabetic chronic kidney disease; D50.0 Iron deficiency anemia secondary to blood loss (chronic); E11.42 Type 2 diabetes mellitus with diabetic polyneuropathy; Z88.0 Allergy status to penicillin; Z88.1 Allergy status to other antibiotic agents; Z79.4 Long term (current) use of insulin; Z95.5 Presence of coronary angioplasty implant and graft; Z98.49 Cataract extraction status, unspecified eye; Z79.02 Long term (current) use of antithrombotics/antiplatelets; Z79.82 Long term (current) use of aspirin; Z79.899 Other long term (current) drug therapy; Z86.0100 Personal history of colon polyps, unspecified; Z96.659 Presence of unspecified artificial knee joint; Z98.890 Other specified postprocedural states
CPT/HCPCS: 0241U; 36415; 36430; 70450; 70450-26; 71045; 71045-26; 74177; 74177-26; 80048; 80053; 80307; 81001; 82140; 82728; 82947; 83550; 83605; 83690; 83735; 83880; 85018; 85025; 85027; 85045; 85610; 86140; 86850; 86900; 86901; 86920; 86922; 87040; 93005; 93010; 93306; 94640; 94667; 96360; 97110-GP; 97116-GP; 97129-GN; 97161-GP; 97162-GP; 97165-GO; 97530-GP; 99232; 99233; 99238; 99285-25; 99291; 99292; A9270-GY; J0696; J0713; J1630; J1815; J1815-GY; J2060; J2405; J2916; J3475; J3490; J7030; P9016; Q9967

== ENCOUNTER 2025-01-13 07:19 | Day surgery (SDC) | payer MEDICARE, OTHER ==
[2025-01-13] MEDS ORDERED: fentaNYL 100 MCG/2 ML SDV ONE (08:05)
[2025-01-13] MEDS ORDERED: Propofol 200 MG/20 ML SDV ONE ×3 (08:05→09:10)
[2025-01-13] MEDS: Lactated Ringers 1,000 ML IV SCH (08:26)
[2025-01-13 10:57] VITALS: BP 166/73; PULSE 68
== END 2025-01-13 11:52 | disposition home or self-care (01) ==
LOC: JP.SDS 07:19
PROVIDERS: ATTEND Family Medicine
DX: D12.2 Benign neoplasm of ascending colon (principal); D12.4 Benign neoplasm of descending colon; D12.5 Benign neoplasm of sigmoid colon; K50.80 Crohn's disease of both small and large intestine without complications; K57.30 Diverticulosis of large intestine without perforation or abscess without bleeding; K64.8 Other hemorrhoids; Z86.0100 Personal history of colon polyps, unspecified; K60.30 Anal fistula, unspecified; E78.5 Hyperlipidemia, unspecified; I12.9 Hypertensive chronic kidney disease with stage 1 through stage 4 chronic kidney disease, or unspecified chronic kidney disease; E11.22 Type 2 diabetes mellitus with diabetic chronic kidney disease; N18.31 Chronic kidney disease, stage 3a; I25.10 Atherosclerotic heart disease of native coronary artery without angina pectoris; Z88.0 Allergy status to penicillin; Z95.5 Presence of coronary angioplasty implant and graft
CPT/HCPCS: 00811; 45380; 45385; J2704; J3010; J7120; 88305; 88312